=== PATIENT | female | born 1960 | race Caucasian/White ===

== ENCOUNTER 2019-10-30 17:06 | Inpatient (IN) | payer MEDICARE, OTHER ==
[~2019-10-30] VITALS: Ht 172.7 cm; Wt 104.3 kg
--- NOTE | 2019-10-30 00:30 | NUR ---
Patient admitted to room 422 per cart from ER. Admitting diagnosis: atypical chest pain. Patient signed out of [facility] AMA. Patient then called EMS to bring her to the hospital. Patient told EMS that she can not walk and wanted to be taken to hospital for pain in her left ankle. Story then changes to chest pain. Cardiac work-up in ER negative. Possibly GI in nature. Patient has trust issues with everyone. Patient told me that her is in [place] helping to build a hospital and that he has been there for a year. Medical chart states that she is a . Patient stated that she will not take insulin for her diabetes. Patient refuses all vaccinations. Patient is alert and oriented X4. Patient denies any allergies. Patient is homless prior to staying at the [facility]. Will continue to monitor. In no acute distress.
[~2019-10-30 17:06] MED LIST: ASPI-630 PO; ATOR20TA58 PO; CALC-167 PO; CLIN300C8 PO; DIAZEPAM10 MG PO; DIVA500T2 PO; FLUC100T7 PO; FLUT9.9S NS; GABA300C18 PO; HYDR-2759 PO; ISOS30TA4 PO; LOPE-101 PO; MELA3TAB4 PO; MORP-16 PO; MULT1TAB52 PO; PANT20TA2 PO; SUCR1TAB35 PO
[2019-10-30 18:28] LABS: BASO % 0 % (0-3); EOS # 0.1 x10^3/uL (0.0-0.7); EOS % 1 % (0-3); HEMATOCRIT 39.7 % (36.0-47.0); HEMOGLOBIN 13.3 g/dL (12.0-15.5); LYMPH # 1.2 x10^3/uL (1.0-4.8); LYMPH % 23 % (24-48); MEAN CORPUSCULAR HEMOGLOBIN 29 pg (25-35); MEAN CORPUSCULAR HGB CONC 34 g/dL (31-37); MEAN CORPUSCULAR VOLUME 87 fL (79-100); MONO # 0.3 x10^3/uL (0.0-1.1); MONO % 6 % (0-9); NEUT # 3.7 x10^3/uL (1.8-7.7); NEUT % 69 % (31-73); PLATELET COUNT 219 x10^3/uL (140-400); RED BLOOD COUNT 4.58 x10^6/uL (3.50-5.40); RED CELL DISTRIBUTION WIDTH 12.9 % (11.5-14.5); WHITE BLOOD COUNT 5.3 x10^3/uL (4.0-11.0)
--- NOTE | 2019-10-30 18:30 | PHYS DOC ---
Past Medical History Past Medical History: CAD, Diabetes-Type II, Hypertension, GA Additional Past Medical Histor: acute illness Past Surgical History: Cholecystectomy, Knee Replacement, Tonsillectomy, Other Additional Past Surgical Histo: Cardiac Stent, Left TKA Smoking Status: Never Smoker Alcohol Use: None Adult General Chief Complaint Chief Complaint: CHEST PAIN HPI HPI Patient is a 59 year old female who presents with not feeling good for last week. Patient also reports headache, shortness of breath, loss of appetite, and body aches . Patient states she Has not been able to eat stuff and has been staying at [facility]. The patient states she does not like it there and signed out AMA to come to the hospital to get a place where else. Patient also states she was diagnosed with strep however she's not being treated for it. Complete ROS were reviewed and found to be within normal limits, except as documented in the [facility] Allergies Allergies Allergies Coded Allergies Type Severity Reaction Last Updated Verified No Known Drug Allergies 09/26/19 No Physical Exam Physical Exam Constitutional: Well developed, well nourished, no acute distress, non-toxic appearance. [] HENT: Normocephalic, atraumatic, bilateral external ears normal, oropharynx moist, no oral exudates, nose normal. [] Eyes: PERRLA, EOMI, conjunctiva normal, no discharge. [] Neck: Normal range of motion, no tenderness, supple, no stridor. [] Cardiovascular:Heart rate regular rhythm, no murmur [] Lungs & Thorax: Bilateral breath sounds clear to auscultation [] Abdomen: Bowel sounds normal, soft, no tenderness, no masses, no pulsatile masses. [] Neurologic: Alert and oriented X 3, normal motor function, normal sensory function, no focal deficits noted. [] Psychologic: Affect normal, judgement normal, mood normal. [] Current Patient Data Vital Signs Vital Signs Date Time Temp Pulse Resp B/P (MAP) Pulse Ox O2 Delivery O2 Flow Rate FiO2 10/30/19 17:11 98.5 95 20 140/78 (98) 98 Room Air 98.5 Lab Values Laboratory Tests Test 10/30/19 17:20 10/30/19 18:58 White Blood Count 5.3 x10^3/uL (4.0-11.0) Red Blood Count 4.58 x10^6/uL (3.50-5.40) Hemoglobin 13.3 g/dL (12.0-15.5) Hematocrit 39.7 % (36.0-47.0) Mean Corpuscular Volume 87 fL (79-100) Mean Corpuscular Hemoglobin 29 pg (25-35) Mean Corpuscular Hemoglobin Concent 34 g/dL (31-37) Red Cell Distribution Width 12.9 % (11.5-14.5) Platelet Count 219 x10^3/uL (140-400) Neutrophils (%) (Auto) 69 % (31-73) Lymphocytes (%) (Auto) 23 % (24-48) L Monocytes (%) (Auto) 6 % (0-9) Eosinophils (%) (Auto) 1 % (0-3) Basophils (%) (Auto) 0 % (0-3) Neutrophils # (Auto) 3.7 x10^3/uL (1.8-7.7) Lymphocytes # (Auto) 1.2 x10^3/uL (1.0-4.8) Monocytes # (Auto) 0.3 x10^3/uL (0.0-1.1) Eosinophils # (Auto) 0.1 x10^3/uL (0.0-0.7) Basophils # (Auto) 0.0 x10^3/uL (0.0-0.2) Sodium Level 142 mmol/L (136-145) Potassium Level 4.1 mmol/L (3.5-5.1) Chloride Level 103 mmol/L (98-107) Carbon Dioxide Level 26 mmol/L (21-32) Anion Gap 13 (6-14) Blood Urea Nitrogen 11 mg/dL (7-20) Creatinine 1.0 mg/dL (0.6-1.0) Estimated GFR (Cockcroft-Gault) 56.7 BUN/Creatinine Ratio 11 (6-20) Glucose Level 278 mg/dL (70-99) H Calcium Level 8.8 mg/dL (8.5-10.1) Total Bilirubin 0.4 mg/dL (0.2-1.0) Aspartate Amino Transferase (AST) 34 U/L (15-37) Alanine Aminotransferase (ALT) 83 U/L (14-59) H Alkaline Phosphatase 538 U/L (46-116) H Troponin I Quantitative < 0.017 ng/mL (0.000-0.055) Total Protein 6.3 g/dL (6.4-8.2) L Albumin 3.0 g/dL (3.4-5.0) L Albumin/Globulin Ratio 0.9 (1.0-1.7) L Influenza Type A Antigen Negative (NEGATIVE) Influenza Type B Antigen Negative (NEGATIVE) Laboratory Tests 10/30/19 17:20 Laboratory Tests 10/30/19 17:20 EKG EKG [] Radiology/Procedures Radiology/Procedures [][facility] [address] [place] [address] IMAGING REPORT Signed PATIENT: TERESA COLE ACCOUNT: [id number] : 1960 LOCATION: ER AGE: 59 SEX: F EXAM STATUS: REG ER ORD. PHYSICIAN: SANDRA LAUREANO APRN REASON: shortness of breath, cp PROCEDURE: CHEST PA & LATERAL Exam: Chest 2 views INDICATION: Shortness of breath TECHNIQUE: Frontal and lateral views the chest Comparisons: 09/26/2019 FINDINGS: The cardiomediastinal silhouette is normal. Pulmonary vessels are mildly prominent. Lung and pleural spaces are clear. IMPRESSION: Findings likely related to mild pulmonary edema. Electronically signed by: Deisy Magdaleno MD (10/30/2019 7:15 PM) [id number] DICTATED and SIGNED BY: DEISY MAGDALENO MD DATE: 10/30/19 1915 Course & Med Decision Making Course & Med Decision Making Pertinent Labs and Imaging studies reviewed. (See chart for details) Will get Flu, Strep, labs, and chest x-ray. Labs are unremarkable for acute changes. Liver enzymes are chronically elevated. Ejection fraction from cardiac workup last month was 60%. . Influenza are negative. Strep is negative. Workup is unremarkable. I am unable to discharge the patient as she is unable to take care of herself and she signed out AMA from [facility] and has no place to go. I will admit the patient to Dr. Mccormack for prison placement as she is unable to take care of herself and Chest pain. Dragon Disclaimer Dragon Disclaimer This electronic medical record was generated, in whole or in part, using a voice recognition dictation system. Departure Departure Impression: Primary Impression: Atypical chest pain Disposition: 09 ADMITTED INPATIENT Admitting Physician: GERA Condition: STABLE Referrals: NO PCP (PCP) The HEART Score for CP Pts HEART Score for Chest Pain: HEART Score for Chest Pain Response (Comments) Value History Slighlty/Non-Suspicious 0 ECG Normal 0 Age >45 - < 65 1 Risk Factors >3 Risk Factors or Hx CAD 2 Troponin < Normal Limit 0 Total 3 Risk Factors: Risk Factors: DM, Current or recent (<one month) smoker, HTN, HLP, family history of CAD, obesity. Risk Scores: Score 0 - 3: 2.5% MACE over next 6 weeks - Discharge Home Score 4 - 6: 20.3% MACE over next 6 weeks - Admit for Clinical Observation Score 7 - 10: 72.7% MACE over next 6 weeks - Early Invasive Strategies SANDRA LAUREANO APRN Oct 30, 2019 18:30
[2019-10-30 18:42] LABS: CALCIUM 8.8 mg/dL (8.5-10.1); GFR 56.7; POTASSIUM 4.1 mmol/L (3.5-5.1)
[2019-10-30 18:49] LABS: ALBUMIN/GLOBULIN RATIO 0.9 (1.0-1.7); TOTAL BILIRUBIN 0.4 mg/dL (0.2-1.0); TOTAL PROTEIN 6.3 g/dL (6.4-8.2)
--- NOTE | 2019-10-30 19:18 | RAD ---
Exam: Chest 2 views INDICATION: Shortness of breath TECHNIQUE: Frontal and lateral views the chest Comparisons: 09/26/2019 FINDINGS: The cardiomediastinal silhouette is normal. Pulmonary vessels are mildly prominent. Lung and pleural spaces are clear. IMPRESSION: Findings likely related to mild pulmonary edema. Electronically signed by: eDisy Egan MD (10/30/2019 7:15 PM) [id number]
[2019-10-30 19:34] LABS: INFLUENZA A PATIENT NEGATIVE (NEGATIVE); INFLUENZA B PATIENT NEGATIVE (NEGATIVE)
[2019-10-30] MEDS ORDERED: ONDANSETRON PF 4 MG/2 ML VIAL. IV PRN (21:00)
[2019-10-30 22:08] LABS: BILIRUBIN,URINE SMALL (NEG); CLARITY,URINE CLOUDY; COLOR,URINE YELLOW; NITRITE,URINE NEGATIVE (NEG); PH,URINE 5.5; PROTEIN,URINE NEGATIVE (NEG-TRACE); UROBILINOGEN,URINE 0.2 mg/dL (0.2 mg/dL)
[2019-10-30 22:16] LABS: HYALINE CASTS, URINE MODERATE /HPF; SQUAMOUS EPITHELIAL CELL,UR MOD /LPF
[2019-10-30 22:17] LABS: BACTERIA,URINE 0 /HPF (0-FEW); RBC,URINE 0 /HPF (0-2); YEAST,URINE PRESENT /HPF
[2019-10-30 23:00] VITALS: BP 126/62
[2019-10-30] MEDS ORDERED: ACETAMINOPHEN 325 MG TABLET. PO PRN (23:45)
[2019-10-30] MEDS ORDERED: LOPERAMIDE 2 MG CAPSULE PO PRN (23:45)
--- NOTE | 2019-10-30 23:45 | PDOC1 ---
History and Physical Date of Admission Date of Admission DATE: 10/30/19 TIME: 23:42 Identification/Chief Complaint Chief Complaint Chest pain Source Source: Caregiver, Chart review, Patient History of Present Illness History of Present Illness Ms Del Rosario is a 59yo F w/ PMHx CAD s/p stent, HTN, HLD, DM2, GERD, left ankle fracture who presented from nursing facility secondary to chest/ epigastric pain. Patient reports pain has been present for the last 2 days and states she has not been allowed to eat for 3 days. Pain is located in her central epigastric region. Pain seems to radiate up the the left chest. No dizziness, diaphoresis, shortness of breath, or nausea/vomiting. Has been requesting GI cocktail, which she reports improves pain. She reported was living in her car for the past 2 years and slipped and fell getting out of her car, fracturing her left ankle, states she went under the car, was in [facility] for the past 18 weeks, apparently. Chest x-ray with mild pulmonary edema. Labs are unremarkable for acute changes. Liver enzymes are chronically elevated with Alkaline phosphatase much higher. Ejection fraction from cardiac workup last month was 60%. . Influenza are negative. Strep is negative. After d/w ED and [facility], apparently she signed out AMA from [facility] and had called 911 and EMS transported her here as she was unable to walk out of the facility. On further ROS her story is inconsistent in many parts and does change. Difficult to follow. She displays some splitting with her remarks about previous physicians. She adamantly denies any mental health diagnoses. Past Medical History Cardiovascular: CAD, HTN Psych: Anxiety, Bipolar, Schizophrenia Endocrine: Diabetes Past Surgical History Past Surgical History tonsillectomy, left total knee arthroplasty and right wrist fracture, status post open reduction and internal fixation. Past Surgical History: Total knee replacement (Left), Tonsillectomy Family History Family History: Hypertension Social History Smoke: No ALCOHOL: none Drugs: None Current Problem List Problem List Problems Medical Problems: (1) Failure to thrive Status: Acute Current Medications Current Medications Current Medications Ondansetron HCl (Zofran) 4 mg PRN Q8HRS PRN IV NAUSEA/VOMITING; Start 10/30/19 at 21:00; Stop 10/31/19 at 20:59 Active Scripts Active Diflucan (Fluconazole) 100 Mg Tablet 1 Tab PO DAILY 7 Days Carafate (Sucralfate) 1 Gm Tablet 1 Tab PO QID 30 Days Protonix (Pantoprazole Sodium) 20 Mg Tablet.dr 2 Tab PO DAILY 30 Days Reported Hydrocodone-Acetamin 5-325 mg (Hydrocodone/Acetaminophen) 1 Each Tablet 2 Tab PO Q4HRS Multivitamins (Multivitamin) 1 Each Tablet 1 Tab PO DAILY Morphine Sulfate Er (Morphine Sulfate) 30 Mg Tablet.er 1 Tab PO BID Melatonin 3 Mg Tablet 3 Tab PO QHS Isosorbide Mononitrate Er (Isosorbide Mononitrate) 30 Mg Tab.er.24h 1 Tab PO DAILY Imodium A-D (Loperamide HCl) 2 Mg Capsule 2 Mg PO Q6HRS PRN Gabapentin (Gabapentin) 300 Mg Capsule 300 Mg PO HS Flonase Allergy Relief (Fluticasone Propionate) 9.9 Ml [place].susp 2 Sprays NS DAILY Diazepam 10 Mg Tablet 10 Mg PO Q6HRS PRN Depakote (Divalproex Sodium) 500 Mg Tablet.dr 500 Mg PO DAILY Clindamycin Hcl 300 Mg Capsule 300 Mg PO QID Calcium 600 + Vit D Tablet (Calcium Carbonate/Vitamin D3) 1 Each Tablet 1 Each PO BID Atorvastatin Calcium 20 Mg Tablet 20 Mg PO HS Aspirin 81 Mg Tab.chew 1 Tab PO DAILY Allergies Allergies: Coded Allergies: No Known Drug Allergies (Unverified , 09/26/19) ROS General: YES: Fatigue, Malaise, Appetite; No: Chills, Night Sweats, Other PSYCHOLOGICAL ROS: YES: Behavioral Disorder, Depression, Irritablity, Mood Swings, Obsessive thoughts; No: Anxiety, Concentration difficultie, Decreased libido, Disorientation, Hallucinations, Hostility, Memory difficulties, Physical abuse, Sexual abuse, Sleep disturbances, Suicidal ideation, Other Eyes: No Blurry vision, No Decreased vision, No Double vision, No Dry eyes, No Excessive tearing, No Eye Pain, No Itchy Eyes, No Loss of vision, No Photophobia, No Scotomata, No Uses contacts, No Uses glasses, No Other HEENT: No: Heacaches, Visual Changes, Hearing change, Nasal congestion, Nasal discharge, Oral lesions, Sinus pain, Sore Throat, Epistaxis, Sneezing, Snoring, Tinnitus, Vertigo, Vocal changes, Other ALLERGY AND IMMUNOLOGY: No: Hives, Insect Bite Sensitivity, Itchy/Watery Eyes, Nasal Congestion, Post Nasal Drip, Seasonal Allergies, Other Hematological and Lymphatic: No: Bleeding Problems, Blood Clots, Blood Transfusions, Brusing, Night Sweats, Pallor, Swollen Lymph Nodes, Other ENDOCRINE: No: Breast Changes, Galactorrhea, Hair Pattern Changes, Hot Flashes, Malaise/lethargy, Mood Swings, Palpitations, Polydipsia/polyuria, Skin Changes, Temperature Intolerance, Unexpected Weight Changes, Other Breast: No New/Changing Breast Lumps, No Nipple changes, No Nipple discharge, No Other Respiratory: No: Cough, Hemoptysis, Orthopnea, Pleuritic Pain, Shortness of breath, SOB with excertion, Sputum Changes, Stridor, Tachypnea, Wheezing, Other Cardiovascular: yes Chest Pain; No Palpitations, No Orthopnea, No Paroxysmal Noc. Dyspnea, No Edema, No Lt Headedness, No Other Gastrointestinal: Yes Nausea; No Vomiting, No Abdominal Pain, No Diarrhea, No Constipation, No Melena, No Hematochezia, No Other Genitourinary: No Dysuria, No Frequency, No Incontinence, No Hematuria, No Retention, No Discharge, No Urgency, No Pain, No Flank Pain, No Other, No , No , No , No , No , No , No Musculoskeletal: Yes Joint Pain; No Gait Disturbance, No Joint Stiffness, No Joint Swelling, No Muscle Pain, No Muscular Weakness, No Pain In:, No Swelling In:, No Other Neurological: Yes Gait Disturbance; No Behavorial Changes, No Bowel/Bladder ControlChng, No Confusion, No Dizziness, No Headaches, No Impaired Coord/balance, No Memory Loss, No Numbness/Tingling, No Seizures, No Speech Problems, No Tremors, No Visual Changes, No Weakness, No Other Skin: No Dry Skin, No Eczema, No Hair Changes, No Lumps, No Mole Changes, No Mottling, No Nail Changes, No Pruritus, No Rash, No Skin Lesion Changes, No Other, No Acne Physical Exam General: Alert, Cooperative, No acute distress HEENT: Atraumatic, PERRLA, EOMI, Mucous membr. moist/pink Lungs: Clear to auscultation, Normal air movement Heart: S1S2, RRR, no thrills, no rubs, no gallops, no murmurs Abdomen: Normal bowel sounds, Soft, No tenderness, No hepatosplenomegaly, No masses Rectal Exam: not examined Extremities: No clubbing, No cyanosis, No edema, Normal pulses Skin: Other (Right heel abrasion with "" wound cover) Neuro: Strength at 5/5 X4 ext, Normal tone, Sensation intact, Cranial nerves 3- 12 NL, Reflexes 2+ Psych/Mental Status: Other (Circumferetial, tangential, thoughts of perseverat ion) Vitals Vitals Vital Signs Date Time Temp Pulse Resp B/P (MAP) Pulse Ox O2 Delivery O2 Flow Rate FiO2 10/30/19 17:11 98.5 95 20 140/78 (98) 98 Room Air 98.5 Labs Labs Laboratory Tests Test 10/30/19 17:20 10/30/19 18:58 10/30/19 22:00 White Blood Count 5.3 x10^3/uL (4.0-11.0) Red Blood Count 4.58 x10^6/uL (3.50-5.40) Hemoglobin 13.3 g/dL (12.0-15.5) Hematocrit 39.7 % (36.0-47.0) Mean Corpuscular Volume 87 fL (79-100) Mean Corpuscular Hemoglobin 29 pg (25-35) Mean Corpuscular Hemoglobin Concent 34 g/dL (31-37) Red Cell Distribution Width 12.9 % (11.5-14.5) Platelet Count 219 x10^3/uL (140-400) Neutrophils (%) (Auto) 69 % (31-73) Lymphocytes (%) (Auto) 23 % (24-48) Monocytes (%) (Auto) 6 % (0-9) Eosinophils (%) (Auto) 1 % (0-3) Basophils (%) (Auto) 0 % (0-3) Neutrophils # (Auto) 3.7 x10^3/uL (1.8-7.7) Lymphocytes # (Auto) 1.2 x10^3/uL (1.0-4.8) Monocytes # (Auto) 0.3 x10^3/uL (0.0-1.1) Eosinophils # (Auto) 0.1 x10^3/uL (0.0-0.7) Basophils # (Auto) 0.0 x10^3/uL (0.0-0.2) Sodium Level 142 mmol/L (136-145) Potassium Level 4.1 mmol/L (3.5-5.1) Chloride Level 103 mmol/L (98-107) Carbon Dioxide Level 26 mmol/L (21-32) Anion Gap 13 (6-14) Blood Urea Nitrogen 11 mg/dL (7-20) Creatinine 1.0 mg/dL (0.6-1.0) Estimated GFR (Cockcroft-Gault) 56.7 BUN/Creatinine Ratio 11 (6-20) Glucose Level 278 mg/dL (70-99) Calcium Level 8.8 mg/dL (8.5-10.1) Total Bilirubin 0.4 mg/dL (0.2-1.0) Aspartate Amino Transf (AST/SGOT) 34 U/L (15-37) Alanine Aminotransferase (ALT/SGPT) 83 U/L (14-59) Alkaline Phosphatase 538 U/L (46-116) Troponin I Quantitative < 0.017 ng/mL (0.000-0.055) Total Protein 6.3 g/dL (6.4-8.2) Albumin 3.0 g/dL (3.4-5.0) Albumin/Globulin Ratio 0.9 (1.0-1.7) Influenza Type A Antigen Negative (NEGATIVE) Influenza Type B Antigen Negative (NEGATIVE) Urine Collection Type Unknown Urine Color Yellow Urine Clarity Cloudy Urine pH 5.5 Urine Specific Fisher >=1.030 Urine Protein Negative mg/dL (NEG-TRACE) Urine Glucose (UA) >=1000 mg/dL (NEG) Urine Ketones (Stick) 15 mg/dL (NEG) Urine Blood Negative (NEG) Urine Nitrite Negative (NEG) Urine Bilirubin Small (NEG) Urine Urobilinogen Dipstick 0.2 mg/dL (0.2 mg/dL) Urine Leukocyte Esterase Negative (NEG) Urine RBC 0 /HPF (0-2) Urine WBC 5-10 /HPF (0-4) Urine Squamous Epithelial Cells Mod /LPF Urine Transitional Epithelial Cells Few /LPF Urine Bacteria 0 /HPF (0-FEW) Urine Hyaline Casts Moderate /HPF Urine Mucus Marked /LPF Urine Yeast Present /HPF Laboratory Tests Test 10/30/19 17:20 10/30/19 18:58 3/2/20 22:00 White Blood Count 5.3 x10^3/uL (4.0-11.0) Red Blood Count 4.58 x10^6/uL (3.50-5.40) Hemoglobin 13.3 g/dL (12.0-15.5) Hematocrit 39.7 % (36.0-47.0) Mean Corpuscular Volume 87 fL (79-100) Mean Corpuscular Hemoglobin 29 pg (25-35) Mean Corpuscular Hemoglobin Concent 34 g/dL (31-37) Red Cell Distribution Width 12.9 % (11.5-14.5) Platelet Count 219 x10^3/uL (140-400) Neutrophils (%) (Auto) 69 % (31-73) Lymphocytes (%) (Auto) 23 % (24-48) Monocytes (%) (Auto) 6 % (0-9) Eosinophils (%) (Auto) 1 % (0-3) Basophils (%) (Auto) 0 % (0-3) Neutrophils # (Auto) 3.7 x10^3/uL (1.8-7.7) Lymphocytes # (Auto) 1.2 x10^3/uL (1.0-4.8) Monocytes # (Auto) 0.3 x10^3/uL (0.0-1.1) Eosinophils # (Auto) 0.1 x10^3/uL (0.0-0.7) Basophils # (Auto) 0.0 x10^3/uL (0.0-0.2) Sodium Level 142 mmol/L (136-145) Potassium Level 4.1 mmol/L (3.5-5.1) Chloride Level 103 mmol/L (98-107) Carbon Dioxide Level 26 mmol/L (21-32) Anion Gap 13 (6-14) Blood Urea Nitrogen 11 mg/dL (7-20) Creatinine 1.0 mg/dL (0.6-1.0) Estimated GFR (Cockcroft-Gault) 56.7 BUN/Creatinine Ratio 11 (6-20) Glucose Level 278 mg/dL (70-99) Calcium Level 8.8 mg/dL (8.5-10.1) Total Bilirubin 0.4 mg/dL (0.2-1.0) Aspartate Amino Transf (AST/SGOT) 34 U/L (15-37) Alanine Aminotransferase (ALT/SGPT) 83 U/L (14-59) Alkaline Phosphatase 538 U/L (46-116) Troponin I Quantitative < 0.017 ng/mL (0.000-0.055) Total Protein 6.3 g/dL (6.4-8.2) Albumin 3.0 g/dL (3.4-5.0) Albumin/Globulin Ratio 0.9 (1.0-1.7) Influenza Type A Antigen Negative (NEGATIVE) Influenza Type B Antigen Negative (NEGATIVE) Urine Collection Type Unknown Urine Color Yellow Urine Clarity Cloudy Urine pH 5.5 Urine Specific Fisher >=1.030 Urine Protein Negative mg/dL (NEG-TRACE) Urine Glucose (UA) >=1000 mg/dL (NEG) Urine Ketones (Stick) 15 mg/dL (NEG) Urine Blood Negative (NEG) Urine Nitrite Negative (NEG) Urine Bilirubin Small (NEG) Urine Urobilinogen Dipstick 0.2 mg/dL (0.2 mg/dL) Urine Leukocyte Esterase Negative (NEG) Urine RBC 0 /HPF (0-2) Urine WBC 5-10 /HPF (0-4) Urine Squamous Epithelial Cells Mod /LPF Urine Transitional Epithelial Cells Few /LPF Urine Bacteria 0 /HPF (0-FEW) Urine Hyaline Casts Moderate /HPF Urine Mucus Marked /LPF Urine Yeast Present /HPF Images Images CXR - The cardiomediastinal silhouette is normal. Pulmonary vessels are mildly prominent. Lung and pleural spaces are clear. IMPRESSION: Findings likely related to mild pulmonary edema. VTE Prophylaxis Ordered VTE Prophylaxis Devices: No VTE Pharmacological Prophylaxi: Yes Assessment/Plan Assessment/Plan A/P: Chest pain - negative cardiac enzymes, EKG. Will trend troponins. This seems like it may be GI in etiology Coronary artery disease, status post NE with stent deployment previously. Cont meds Type 2 diabetes - will place on sliding scale, A1c Hypertension - cont meds Hyperlipidemia - cont meds Gastroesophageal reflux disease - cont meds Generalized weakness - will have PT to evaluated Right heel wound - seems to be a bedsore. Difficulty walking - right heel ulcer and left ankle in brace Left bimalleolar fracture - patient notes she was seen recently by orthopedic surgeon. She is still nonweightbearing and mostly bed bound, wheelchair bound. Morbid obesity - counseled on diet, exercise. Insight seems very poor Elevated alkaline phosphatase - will d/w GI, was just evaluated 5 weeks ago. Behavioral disorder - her self care is poor, thoughts seem disorganized. A psychotic disorder with concomitant borderline personality seem to be present. Is on depakote likely for treatment of this. FEN - ADA diet PPX - lovenox FULL CODE Dispo - inpatient 2 midnights. Needs placement for poor self care. Her AMA decision to leave [facility] is unusual as EMS picked her up from the facility. It would be appropriate for her to return to [employer] residency, may need to look at other facilities. ULISES GOODMAN MD Oct 30, 2019 23:45
[2019-10-31] MEDS ORDERED: DEXTROSE 50% 25 GM / 50ML DISP.SYRIN. IV PRN
[2019-10-31] MEDS: MORPHINE ER 30 MG TABLET.ER PO SCH ×3 (02:04→20:29)
[2019-10-31] MEDS: ENOXAPARIN 40 MG/0.4 ML SYRINGE. SQ SCH (02:09)
[2019-10-31 03:00] VITALS: BP 146/60
[2019-10-31 03:48] LABS: CALCIUM 8.3 mg/dL (8.5-10.1); CREATININE 0.9 mg/dL (0.6-1.0); GFR 64.1; POTASSIUM 3.5 mmol/L (3.5-5.1)
--- NOTE | 2019-10-31 05:23 | EKG ---
[facility] [address] [place] [address] Test Date: 2019-10-30 Test Time: 17:11:10 Pat Name: TERESA COLE Department: Room: Gender: F Engineering Technical Writer: : 1960 Requested By: SANDRA LAUREANO Order Number: [id number] Reading MD: Measurements Intervals Lilly Rate: 86 P: 0 NV: 170 QRS: -17 QRSD: 106 T: 53 QT: 362 QTc: 436 Interpretive Statements SINUS RHYTHM LEFTWARD AXIS R-S TRANSITION ZONE IN V LEADS DISPLACED TO THE LEFT OTHERWISE NORMAL ECG RI6.01 No previous ECG available for comparison
--- NOTE | 2019-10-31 06:18 | NUR ---
Patient refused MRSA CHG bath and Nozin swab
[2019-10-31 07:00] VITALS: BP 115/56
[2019-10-31] MEDS: PANTOPRAZOLE 40 MG TABLET.DR. PO SCH (07:30)
[2019-10-31] MEDS: INSULIN LISPRO 300 UNITS/3 ML VIAL. SQ SCH ×4 (07:30→21:00)
[2019-10-31] MEDS: SUCRALFATE 1 GM TABLET. PO SCH ×4 (07:30→20:29)
--- NOTE | 2019-10-31 08:48 | PDOC ---
PROGRESS NOTES Chief Complaint Chief Complaint A/P: Chest pain - negative cardiac enzymes, EKG. This seems like it may be GI in etiology Coronary artery disease, status post MS with stent deployment previously. Cont meds Type 2 diabetes - will place on sliding scale, A1c Hypertension - cont meds Hyperlipidemia - cont meds Gastroesophageal reflux disease - cont meds Generalized weakness - will have PT to evaluated Right heel wound - seems to be a bedsore. Difficulty walking - right heel ulcer and left ankle in brace Left bimalleolar fracture - patient notes she was seen recently by orthopedic surgeon. She is still nonweightbearing and mostly bed bound, wheelchair bound. Morbid obesity - counseled on diet, exercise. Insight seems very poor Elevated alkaline phosphatase - will d/w GI, was just evaluated 5 weeks ago. Behavioral disorder - her self care is poor, thoughts seem disorganized. A psychotic disorder with concomitant borderline personality seem to be present. Is on depakote likely for treatment of this. History of Present Illness History of Present Illness Ms Del Rosario is a 59yo F w/ PMHx CAD s/p stent, HTN, HLD, DM2, GERD, left ankle fracture who presented from nursing facility secondary to chest/ epigastric pain. Patient reports pain has been present for the last 2 days and states she has not been allowed to eat for 3 days. Pain is located in her central epigastric region. Pain seems to radiate up the the left chest. No dizziness, d iaphoresis, shortness of breath, or nausea/vomiting. Has been requesting GI cocktail, which she reports improves pain. She reported was living in her car for the past 2 years and slipped and fell getting out of her car, fracturing her left ankle, states she went under the car, was in [facility] for the past 18 weeks, apparently. Chest x-ray with mild pulmonary edema. Labs are unremarkable for acute changes. Liver enzymes are chronically elevated with Alkaline phosphatase much higher. Ejection fraction from cardiac workup last month was 60%. . Influenza are negative. Strep is negative. After d/w ED and [facility], apparently she signed out AMA from [facility] and had called 911 and EMS transported her here as she was unable to walk out of the facility. On further ROS her story is inconsistent in many parts and does change. Difficult to follow. She displays some splitting with her remarks about previous physicians. She adamantly denies any mental health diagnoses. She is refusing multiple therapies today. No SOB, chest pain improved. Refusing to have her LLE x-rayed. Vitals Vitals Vital Signs Date Time Temp Pulse Resp B/P (MAP) Pulse Ox O2 Delivery O2 Flow Rate FiO2 10/31/19 08:17 93 Room Air 10/31/19 07:00 98.2 52 18 115/56 (75) 98.2 Physical Exam General: Alert, Cooperative, No acute distress Abdomen: Normal bowel sounds, Soft, No tenderness, No hepatosplenomegaly, No masses Extremities: No clubbing, No cyanosis, No edema, Normal pulses Skin: Other (Right heel abrasion with "" wound cover) Labs LABS Laboratory Tests Test 10/30/19 17:20 10/30/19 18:58 10/30/19 22:00 10/30/19 23:51 White Blood Count 5.3 x10^3/uL (4.0-11.0) Red Blood Count 4.58 x10^6/uL (3.50-5.40) Hemoglobin 13.3 g/dL (12.0-15.5) Hematocrit 39.7 % (36.0-47.0) Mean Corpuscular Volume 87 fL (79-100) Mean Corpuscular Hemoglobin 29 pg (25-35) Mean Corpuscular Hemoglobin Concent 34 g/dL (31-37) Red Cell Distribution Width 12.9 % (11.5-14.5) Platelet Count 219 x10^3/uL (140-400) Neutrophils (%) (Auto) 69 % (31-73) Lymphocytes (%) (Auto) 23 % (24-48) Monocytes (%) (Auto) 6 % (0-9) Eosinophils (%) (Auto) 1 % (0-3) Basophils (%) (Auto) 0 % (0-3) Neutrophils # (Auto) 3.7 x10^3/uL (1.8-7.7) Lymphocytes # (Auto) 1.2 x10^3/uL (1.0-4.8) Monocytes # (Auto) 0.3 x10^3/uL (0.0-1.1) Eosinophils # (Auto) 0.1 x10^3/uL (0.0-0.7) Basophils # (Auto) 0.0 x10^3/uL (0.0-0.2) Sodium Level 142 mmol/L (136-145) Potassium Level 4.1 mmol/L (3.5-5.1) Chloride Level 103 mmol/L (98-107) Carbon Dioxide Level 26 mmol/L (21-32) Anion Gap 13 (6-14) Blood Urea Nitrogen 11 mg/dL (7-20) Creatinine 1.0 mg/dL (0.6-1.0) Estimated GFR (Cockcroft-Gault) 56.7 BUN/Creatinine Ratio 11 (6-20) Glucose Level 278 mg/dL (70-99) Calcium Level 8.8 mg/dL (8.5-10.1) Total Bilirubin 0.4 mg/dL (0.2-1.0) Aspartate Amino Transf (AST/SGOT) 34 U/L (15-37) Alanine Aminotransferase (ALT/SGPT) 83 U/L (14-59) Alkaline Phosphatase 538 U/L (46-116) Troponin I Quantitative < 0.017 ng/mL (0.000-0.055) < 0.017 ng/mL (0.000-0.055) Total Protein 6.3 g/dL (6.4-8.2) Albumin 3.0 g/dL (3.4-5.0) Albumin/Globulin Ratio 0.9 (1.0-1.7) Influenza Type A Antigen Negative (NEGATIVE) Influenza Type B Antigen Negative (NEGATIVE) Group A Streptococcus Rapid Negative (NEGATIVE) Urine Collection Type Unknown Urine Color Yellow Urine Clarity Cloudy Urine pH 5.5 Urine Specific [place]lan >=1.030 Urine Protein Negative mg/dL (NEG-TRACE) Urine Glucose (UA) >=1000 mg/dL (NEG) Urine Ketones (Stick) 15 mg/dL (NEG) Urine Blood Negative (NEG) Urine Nitrite Negative (NEG) Urine Bilirubin Small (NEG) Urine Urobilinogen Dipstick 0.2 mg/dL (0.2 mg/dL) Urine Leukocyte Esterase Negative (NEG) Urine RBC 0 /HPF (0-2) Urine WBC 5-10 /HPF (0-4) Urine Squamous Epithelial Cells Mod /LPF Urine Transitional Epithelial Cells Few /LPF Urine Bacteria 0 /HPF (0-FEW) Urine Hyaline Casts Moderate /HPF Urine Mucus Marked /LPF Urine Yeast Present /HPF Test 10/31/19 03:20 Sodium Level 141 mmol/L (136-145) Potassium Level 3.5 mmol/L (3.5-5.1) Chloride Level 106 mmol/L (98-107) Carbon Dioxide Level 25 mmol/L (21-32) Anion Gap 10 (6-14) Blood Urea Nitrogen 12 mg/dL (7-20) Creatinine 0.9 mg/dL (0.6-1.0) Estimated GFR (Cockcroft-Gault) 64.1 Glucose Level 353 mg/dL (70-99) Calcium Level 8.3 mg/dL (8.5-10.1) Troponin I Quantitative < 0.017 ng/mL (0.000-0.055) Thyroid Stimulating Hormone (TSH) 0.258 uIU/mL (0.358-3.74) Assessment and Plan Assessmemt and Plan Problems Medical Problems: (1) Failure to thrive Status: Acute Comment Review of Relevant I have reviewed the following items octavio (where applicable) has been applied. Labs Laboratory Tests Test 10/30/19 17:20 10/30/19 18:58 10/30/19 22:00 10/30/19 23:51 White Blood Count 5.3 x10^3/uL (4.0-11.0) Red Blood Count 4.58 x10^6/uL (3.50-5.40) Hemoglobin 13.3 g/dL (12.0-15.5) Hematocrit 39.7 % (36.0-47.0) Mean Corpuscular Volume 87 fL (79-100) Mean Corpuscular Hemoglobin 29 pg (25-35) Mean Corpuscular Hemoglobin Concent 34 g/dL (31-37) Red Cell Distribution Width 12.9 % (11.5-14.5) Platelet Count 219 x10^3/uL (140-400) Neutrophils (%) (Auto) 69 % (31-73) Lymphocytes (%) (Auto) 23 % (24-48) Monocytes (%) (Auto) 6 % (0-9) Eosinophils (%) (Auto) 1 % (0-3) Basophils (%) (Auto) 0 % (0-3) Neutrophils # (Auto) 3.7 x10^3/uL (1.8-7.7) Lymphocytes # (Auto) 1.2 x10^3/uL (1.0-4.8) Monocytes # (Auto) 0.3 x10^3/uL (0.0-1.1) Eosinophils # (Auto) 0.1 x10^3/uL (0.0-0.7) Basophils # (Auto) 0.0 x10^3/uL (0.0-0.2) Sodium Level 142 mmol/L (136-145) Potassium Level 4.1 mmol/L (3.5-5.1) Chloride Level 103 mmol/L (98-107) Carbon Dioxide Level 26 mmol/L (21-32) Anion Gap 13 (6-14) Blood Urea Nitrogen 11 mg/dL (7-20) Creatinine 1.0 mg/dL (0.6-1.0) Estimated GFR (Cockcroft-Gault) 56.7 BUN/Creatinine Ratio 11 (6-20) Glucose Level 278 mg/dL (70-99) Calcium Level 8.8 mg/dL (8.5-10.1) Total Bilirubin 0.4 mg/dL (0.2-1.0) Aspartate Amino Transf (AST/SGOT) 34 U/L (15-37) Alanine Aminotransferase (ALT/SGPT) 83 U/L (14-59) Alkaline Phosphatase 538 U/L (46-116) Troponin I Quantitative < 0.017 ng/mL (0.000-0.055) < 0.017 ng/mL (0.000-0.055) Total Protein 6.3 g/dL (6.4-8.2) Albumin 3.0 g/dL (3.4-5.0) Albumin/Globulin Ratio 0.9 (1.0-1.7) Influenza Type A Antigen Negative (NEGATIVE) Influenza Type B Antigen Negative (NEGATIVE) Group A Streptococcus Rapid Negative (NEGATIVE) Urine Collection Type Unknown Urine Color Yellow Urine Clarity Cloudy Urine pH 5.5 Urine Specific Etlan >=1.030 Urine Protein Negative mg/dL (NEG-TRACE) Urine Glucose (UA) >=1000 mg/dL (NEG) Urine Ketones (Stick) 15 mg/dL (NEG) Urine Blood Negative (NEG) Urine Nitrite Negative (NEG) Urine Bilirubin Small (NEG) Urine Urobilinogen Dipstick 0.2 mg/dL (0.2 mg/dL) Urine Leukocyte Esterase Negative (NEG) Urine RBC 0 /HPF (0-2) Urine WBC 5-10 /HPF (0-4) Urine Squamous Epithelial Cells Mod /LPF Urine Transitional Epithelial Cells Few /LPF Urine Bacteria 0 /HPF (0-FEW) Urine Hyaline Casts Moderate /HPF Urine Mucus Marked /LPF Urine Yeast Present /HPF Test 10/31/19 03:20 Sodium Level 141 mmol/L (136-145) Potassium Level 3.5 mmol/L (3.5-5.1) Chloride Level 106 mmol/L (98-107) Carbon Dioxide Level 25 mmol/L (21-32) Anion Gap 10 (6-14) Blood Urea Nitrogen 12 mg/dL (7-20) Creatinine 0.9 mg/dL (0.6-1.0) Estimated GFR (Cockcroft-Gault) 64.1 Glucose Level 353 mg/dL (70-99) Calcium Level 8.3 mg/dL (8.5-10.1) Troponin I Quantitative < 0.017 ng/mL (0.000-0.055) Thyroid Stimulating Hormone (TSH) 0.258 uIU/mL (0.358-3.74) Laboratory Tests Test 10/30/19 17:20 10/30/19 18:58 10/30/19 22:00 10/30/19 23:51 White Blood Count 5.3 x10^3/uL (4.0-11.0) Red Blood Count 4.58 x10^6/uL (3.50-5.40) Hemoglobin 13.3 g/dL (12.0-15.5) Hematocrit 39.7 % (36.0-47.0) Mean Corpuscular Volume 87 fL (79-100) Mean Corpuscular Hemoglobin 29 pg (25-35) Mean Corpuscular Hemoglobin Concent 34 g/dL (31-37) Red Cell Distribution Width 12.9 % (11.5-14.5) Platelet Count 219 x10^3/uL (140-400) Neutrophils (%) (Auto) 69 % (31-73) Lymphocytes (%) (Auto) 23 % (24-48) Monocytes (%) (Auto) 6 % (0-9) Eosinophils (%) (Auto) 1 % (0-3) Basophils (%) (Auto) 0 % (0-3) Neutrophils # (Auto) 3.7 x10^3/uL (1.8-7.7) Lymphocytes # (Auto) 1.2 x10^3/uL (1.0-4.8) Monocytes # (Auto) 0.3 x10^3/uL (0.0-1.1) Eosinophils # (Auto) 0.1 x10^3/uL (0.0-0.7) Basophils # (Auto) 0.0 x10^3/uL (0.0-0.2) Sodium Level 142 mmol/L (136-145) Potassium Level 4.1 mmol/L (3.5-5.1) Chloride Level 103 mmol/L (98-107) Carbon Dioxide Level 26 mmol/L (21-32) Anion Gap 13 (6-14) Blood Urea Nitrogen 11 mg/dL (7-20) Creatinine 1.0 mg/dL (0.6-1.0) Estimated GFR (Cockcroft-Gault) 56.7 BUN/Creatinine Ratio 11 (6-20) Glucose Level 278 mg/dL (70-99) Calcium Level 8.8 mg/dL (8.5-10.1) Total Bilirubin 0.4 mg/dL (0.2-1.0) Aspartate Amino Transf (AST/SGOT) 34 U/L (15-37) Alanine Aminotransferase (ALT/SGPT) 83 U/L (14-59) Alkaline Phosphatase 538 U/L (46-116) Troponin I Quantitative < 0.017 ng/mL (0.000-0.055) < 0.017 ng/mL (0.000-0.055) Total Protein 6.3 g/dL (6.4-8.2) Albumin 3.0 g/dL (3.4-5.0) Albumin/Globulin Ratio 0.9 (1.0-1.7) Influenza Type A Antigen Negative (NEGATIVE) Influenza Type B Antigen Negative (NEGATIVE) Group A Streptococcus Rapid Negative (NEGATIVE) Urine Collection Type Unknown Urine Color Yellow Urine Clarity Cloudy Urine pH 5.5 Urine Specific Etlan >=1.030 Urine Protein Negative mg/dL (NEG-TRACE) Urine Glucose (UA) >=1000 mg/dL (NEG) Urine Ketones (Stick) 15 mg/dL (NEG) Urine Blood Negative (NEG) Urine Nitrite Negative (NEG) Urine Bilirubin Small (NEG) Urine Urobilinogen Dipstick 0.2 mg/dL (0.2 mg/dL) Urine Leukocyte Esterase Negative (NEG) Urine RBC 0 /HPF (0-2) Urine WBC 5-10 /HPF (0-4) Urine Squamous Epithelial Cells Mod /LPF Urine Transitional Epithelial Cells Few /LPF Urine Bacteria 0 /HPF (0-FEW) Urine Hyaline Casts Moderate /HPF Urine Mucus Marked /LPF Urine Yeast Present /HPF Test 10/31/19 03:20 Sodium Level 141 mmol/L (136-145) Potassium Level 3.5 mmol/L (3.5-5.1) Chloride Level 106 mmol/L (98-107) Carbon Dioxide Level 25 mmol/L (21-32) Anion Gap 10 (6-14) Blood Urea Nitrogen 12 mg/dL (7-20) Creatinine 0.9 mg/dL (0.6-1.0) Estimated GFR (Cockcroft-Gault) 64.1 Glucose Level 353 mg/dL (70-99) Calcium Level 8.3 mg/dL (8.5-10.1) Troponin I Quantitative < 0.017 ng/mL (0.000-0.055) Thyroid Stimulating Hormone (TSH) 0.258 uIU/mL (0.358-3.74) Medications Current Medications Ondansetron HCl (Zofran) 4 mg PRN Q8HRS PRN IV NAUSEA/VOMITING; Start 10/30/19 at 21:00; Stop 10/30/19 at 23:49; Status DC Ondansetron HCl (Zofran) 4 mg PRN Q6HRS PRN IV NAUSEA/VOMITING 1ST CHOICE; Start 10/30/19 at 23:45 Aspirin (Children'S Aspirin) 81 mg DAILY PO ; Start 10/31/19 at 09:00 Atorvastatin Calcium (Lipitor) 20 mg HS PO ; Start 10/31/19 at 21:00 Divalproex Sodium (Depakote) 500 mg DAILY PO ; Start 10/31/19 at 09:00 Gabapentin (Neurontin) 300 mg HS PO ; Start 10/31/19 at 21:00 Isosorbide Mononitrate (Imdur) 30 mg DAILY PO ; Start 3/3/20 at 09:00 Loperamide HCl (Imodium) 2 mg PRN Q6HRS PRN PO DIARRHEA; Start 10/30/19 at 23:45 Sucralfate (Carafate) 1 gm QIDACHS PO ; Start 10/31/19 at 07:30 Pantoprazole Sodium (Protonix) 40 mg DAILYAC PO ; Start 10/31/19 at 07:30 Acetaminophen (Tylenol) 650 mg PRN Q6HRS PRN PO MILD pain/temp; Start 10/30/19 at 23:45 Enoxaparin Sodium (Lovenox 40mg Syringe) 40 mg Q24H SQ Last administered on 10/31/19at 02:09; Start 10/31/19 at 00:00 Insulin Human Lispro (HumaLOG) 0-5 UNITS TIDACHC SQ ; Start 10/31/19 at 07:30 Dextrose (Dextrose 50%-Water Syringe) 12.5 gm PRN Q15MIN PRN IV SEE COMMENTS; Start 10/31/19 at 00:00 Acetaminophen/ Hydrocodone Bitart (Lortab 5/325) 2 tab PRN Q4HRS PRN PO SEVERE PAIN 7-10; Start 10/31/19 at 02:00 Morphine Sulfate (Ms Contin) 30 mg BID PO Last administered on 10/31/19at 08:17; Start 10/31/19 at 02:00 Active Scripts Active Diflucan (Fluconazole) 100 Mg Tablet 1 Tab PO DAILY 7 Days Carafate (Sucralfate) 1 Gm Tablet 1 Tab PO QID 30 Days Protonix (Pantoprazole Sodium) 20 Mg Tablet.dr 2 Tab PO DAILY 30 Days Reported Hydrocodone-Acetamin 5-325 mg (Hydrocodone/Acetaminophen) 1 Each Tablet 2 Tab PO Q4HRS Multivitamins (Multivitamin) 1 Each Tablet 1 Tab PO DAILY Morphine Sulfate Er (Morphine Sulfate) 30 Mg Tablet.er 1 Tab PO BID Melatonin 3 Mg Tablet 3 Tab PO QHS Isosorbide Mononitrate Er (Isosorbide Mononitrate) 30 Mg Tab.er.24h 1 Tab PO DAILY Imodium A-D (Loperamide HCl) 2 Mg Capsule 2 Mg PO Q6HRS PRN Gabapentin (Gabapentin) 300 Mg Capsule 300 Mg PO HS Flonase Allergy Relief (Fluticasone Propionate) 9.9 Ml [place].susp 2 Sprays NS DAILY Diazepam 10 Mg Tablet 10 Mg PO Q6HRS PRN Depakote (Divalproex Sodium) 500 Mg Tablet.dr 500 Mg PO DAILY Clindamycin Hcl 300 Mg Capsule 300 Mg PO QID Calcium 600 + Vit D Tablet (Calcium Carbonate/Vitamin D3) 1 Each Tablet 1 Each PO BID Atorvastatin Calcium 20 Mg Tablet 20 Mg PO HS Aspirin 81 Mg Tab.chew 1 Tab PO DAILY Vitals/I & O Vital Sign - Last 24 Hours 10/30/19 10/30/19 10/30/19 10/30/19 17:11 22:00 22:15 23:00 Temp 98.5 97.7 98.5 97.7 Pulse 95 72 66 71 Resp 20 16 16 18 B/P (MAP) 140/78 (98) 121/80 (94) 140/68 (92) 126/62 (83) Pulse Ox 98 97 98 90 O2 Delivery Room Air Room Air Room Air Room Air 10/31/19 10/31/19 10/31/19 10/31/19 02:04 03:00 04:15 06:04 Temp 98.0 98.0 Pulse 51 Resp 18 18 20 B/P (MAP) 146/60 (88) Pulse Ox 93 O2 Delivery Room Air Room Air Room Air Room Air 10/31/19 10/31/19 07:00 08:17 Temp 98.2 98.2 Pulse 52 Resp 18 B/P (MAP) 115/56 (75) Pulse Ox 97 93 O2 Delivery Room Air Room Air Intake and Output 10/30/19 10/30/19 10/31/19 15:00 23:00 07:00 Intake Total 360 ml Balance 360 ml ULISES GOODMAN MD Oct 31, 2019 08:48
--- NOTE | 2019-10-31 08:55 | PDOC2 ---
GI CONSULT Reason For Consult: elevated Alk Phos HPI: HPI: 59 y/o female who we saw in late August. At that time complained of a variety of GIi symptoms including epigastric/chest pain, odynophagia/dysphagia, and vomiting. Also noted w/ abnormal LFTs. Was treated w/ empiric Diflucan, also PPI. US showed fatty liver, s/p cholecystectomy, and normal CBD. Viral Hepatitis was negative. UGI suggested 2 small ulcers along the greater curvatu re of the stomach and moderate esophageal dysmotility. Was advised to continue PPI and follow-up for outpt EGD in ~2 months. H/o psych issues - varying history throughout her stay last time, wanted to advance diet, and no swallowing issues noted by staff then or now. This time left AMA from [place] and called 911 to go to the ER. Challenging history as last time. Reports the same issues including odynophagia, dysphagia, vomiting, chest pain, and abd pain. Says no one gave her the right medications. Says stooling normally and denies bleeding. From past encounter, ?h/o GERD, no pancreas history, and past 'scopes ~3 years ago. On ASA. H/o ankle fracture. PMH: PMH: CAD w/ stent, HTN, DM, CKD, GERD, nephrolithiasis, right wrist fracture, left ankle fracture, ?schizophrenia cholecystectomy, left knee replacement, tonsillectomy FH: Family History: No pertinent hx Social History: Smoke: No ALCOHOL: none Drugs: None ROS: Per HPI. Vitals: Vitals: Vital Signs Date Time Temp Pulse Resp B/P (MAP) Pulse Ox O2 Delivery O2 Flow Rate FiO2 10/31/19 08:17 93 Room Air 10/31/19 07:00 98.2 52 18 115/56 (75) 98.2 Labs: Labs: Laboratory Tests Test 10/30/19 17:20 10/30/19 18:58 10/30/19 22:00 10/30/19 23:51 White Blood Count 5.3 x10^3/uL (4.0-11.0) Red Blood Count 4.58 x10^6/uL (3.50-5.40) Hemoglobin 13.3 g/dL (12.0-15.5) Hematocrit 39.7 % (36.0-47.0) Mean Corpuscular Volume 87 fL (79-100) Mean Corpuscular Hemoglobin 29 pg (25-35) Mean Corpuscular Hemoglobin Concent 34 g/dL (31-37) Red Cell Distribution Width 12.9 % (11.5-14.5) Platelet Count 219 x10^3/uL (140-400) Neutrophils (%) (Auto) 69 % (31-73) Lymphocytes (%) (Auto) 23 % (24-48) Monocytes (%) (Auto) 6 % (0-9) Eosinophils (%) (Auto) 1 % (0-3) Basophils (%) (Auto) 0 % (0-3) Neutrophils # (Auto) 3.7 x10^3/uL (1.8-7.7) Lymphocytes # (Auto) 1.2 x10^3/uL (1.0-4.8) Monocytes # (Auto) 0.3 x10^3/uL (0.0-1.1) Eosinophils # (Auto) 0.1 x10^3/uL (0.0-0.7) Basophils # (Auto) 0.0 x10^3/uL (0.0-0.2) Sodium Level 142 mmol/L (136-145) Potassium Level 4.1 mmol/L (3.5-5.1) Chloride Level 103 mmol/L (98-107) Carbon Dioxide Level 26 mmol/L (21-32) Anion Gap 13 (6-14) Blood Urea Nitrogen 11 mg/dL (7-20) Creatinine 1.0 mg/dL (0.6-1.0) Estimated GFR (Cockcroft-Gault) 56.7 BUN/Creatinine Ratio 11 (6-20) Glucose Level 278 mg/dL (70-99) Calcium Level 8.8 mg/dL (8.5-10.1) Total Bilirubin 0.4 mg/dL (0.2-1.0) Aspartate Amino Transf (AST/SGOT) 34 U/L (15-37) Alanine Aminotransferase (ALT/SGPT) 83 U/L (14-59) Alkaline Phosphatase 538 U/L (46-116) Troponin I Quantitative < 0.017 ng/mL (0.000-0.055) < 0.017 ng/mL (0.000-0.055) Total Protein 6.3 g/dL (6.4-8.2) Albumin 3.0 g/dL (3.4-5.0) Albumin/Globulin Ratio 0.9 (1.0-1.7) Influenza Type A Antigen Negative (NEGATIVE) Influenza Type B Antigen Negative (NEGATIVE) Group A Streptococcus Rapid Negative (NEGATIVE) Urine Collection Type Unknown Urine Color Yellow Urine Clarity Cloudy Urine pH 5.5 Urine Specific [place] >=1.030 Urine Protein Negative mg/dL (NEG-TRACE) Urine Glucose (UA) >=1000 mg/dL (NEG) Urine Ketones (Stick) 15 mg/dL (NEG) Urine Blood Negative (NEG) Urine Nitrite Negative (NEG) Urine Bilirubin Small (NEG) Urine Urobilinogen Dipstick 0.2 mg/dL (0.2 mg/dL) Urine Leukocyte Esterase Negative (NEG) Urine RBC 0 /HPF (0-2) Urine WBC 5-10 /HPF (0-4) Urine Squamous Epithelial Cells Mod /LPF Urine Transitional Epithelial Cells Few /LPF Urine Bacteria 0 /HPF (0-FEW) Urine Hyaline Casts Moderate /HPF Urine Mucus Marked /LPF Urine Yeast Present /HPF Test 10/31/19 03:20 Sodium Level 141 mmol/L (136-145) Potassium Level 3.5 mmol/L (3.5-5.1) Chloride Level 106 mmol/L (98-107) Carbon Dioxide Level 25 mmol/L (21-32) Anion Gap 10 (6-14) Blood Urea Nitrogen 12 mg/dL (7-20) Creatinine 0.9 mg/dL (0.6-1.0) Estimated GFR (Cockcroft-Gault) 64.1 Glucose Level 353 mg/dL (70-99) Calcium Level 8.3 mg/dL (8.5-10.1) Troponin I Quantitative < 0.017 ng/mL (0.000-0.055) Thyroid Stimulating Hormone (TSH) 0.258 uIU/mL (0.358-3.74) Allergies: Coded Allergies: No Known Drug Allergies (Unverified , 09/26/19) Medications: Current Medications Medications (Trade) Dose Ordered Sig/Dorian Route PRN Reason Start Time Stop Time Status Last Admin Dose Admin Enoxaparin Sodium (Lovenox 40mg Syringe) 40 mg Q24H SQ 10/31/19 00:00 10/31/19 02:09 Morphine Sulfate (Ms Contin) 30 mg BID PO 10/31/19 02:00 10/31/19 08:17 Imaging: Imaging: CXR IMPRESSION: Findings likely related to mild pulmonary edema. PE: GEN: NAD, has sheets over head HEENT: Atraumatic, PERRL LUNGS: CTAB HEART: RRR +chest wall tenderness ABD: NABS, S/ND, non-specifically tender EXTREMITY: ankle in brace SKIN: No rashes, no jaundice NEURO/PSYCH: A & O 3 A/P: A/P: Chronic chest and epigastric pain Chronic dysphagia/odynophagia - recently empirically treated w/ Diflucan, h/o esophageal dysmotility GERD, PUD (as suggested by recent UGI) - reportedly had EGD ~3 years ago Elevated ALT and Alk Phos CRC screen - reportedly done ~3 years ago Fatty liver S/p cholecystectomy, normal CBD Psych issues, non-compliance Left ankle fracture -- Reviewed w/ [facility] - check MRCP. Will also check AMA. Continue Protonix and Carafate. Add GI cocktail PRN. ZACHARIAH VENCES Oct 31, 2019 08:54
[2019-10-31] MEDS: ASPIRIN CHEWABLE 81 MG TABLET. PO SCH (09:00)
[2019-10-31] MEDS: DIVALPROEX DELAYED RELEASE 500 MG TABLET.DR. PO SCH (09:00)
[2019-10-31] MEDS: ISOSORBIDE MONONITRATE ER 30 MG TAB.ER.24H PO SCH (09:00)
--- NOTE | 2019-10-31 10:02 | PDOC2 ---
FAY GARCIA VANESSA 10/31/19 1001: CARDIAC CONSULT DATE OF CONSULT Date of Consult DATE: 10/31/19 TIME: 09:49 REASON FOR CONSULT Reason for Consult: Chest pain REFERRING PHYSICIAN Referring Physician: Rick Nazario APRN SOURCE Source: Chart review, Patient HISTORY OF PRESENT ILLNESS HISTORY OF PRESENT ILLNESS This is a 59 yo female who presented secondary to epigastric/chest pain. Patient reports pain has been occuring for the last week or so. Has been nausea/vomiting and has not been able to eat. No dizziness, diaphoresis, palpitations, or shortness of breath. Pain located in her epigastric region and seems to be worse with eating. Was seen by our service in August for similar complaints. Was dorian eduled for outpatient stress test but patient did not follow throughout with this. Was also seen by GI service and noted with ophageal dysmotility noted as well as gastric ulcers. Is tearful and reports she had to sign out of her nursing facility AMA to come to the hospital. Does not have any money or a place to go. PAST MEDICAL HISTORY Past Medical History Cardiovascular: CAD, HTN Psych: Anxiety, Bipolar, Schizophrenia (?) Endocrine: Diabetes PAST SURGICAL HISTORY Past Surgical History cholecystectomy, left knee replacement, tonsillectomy FAMILY HISTORY Family History: Diabetes SOCIAL HISTORY Social History Smoke: No ALCOHOL: none Drugs: None Lives: Assisted CURRENT MEDICATIONS CURRENT MEDICATIONS Current Medications Medications (Trade) Dose Ordered Sig/Dorian Route PRN Reason Start Time Stop Time Status Last Admin Dose Admin Enoxaparin Sodium (Lovenox 40mg Syringe) 40 mg Q24H SQ 10/31/19 00:00 10/31/19 02:09 Morphine Sulfate (Ms Contin) 30 mg BID PO 10/31/19 02:00 10/31/19 08:17 ALLERGIES ALLERGIES: Coded Allergies: No Known Drug Allergies (Unverified , 09/26/19) ROS Review of System 14 point ROS conducted with pertinent positives noted above in HPI PHYSICAL EXAM PHYSICAL EXAM General: Alert, Oriented X3, Cooperative HEENT: Atraumatic, Mucous membr. moist/pink Lungs: Clear to auscultation, Other (central chest/epigastric tenderness) Heart: Regular rate, Normal S1, Normal S2 Abdomen: Soft Extremities: No edema, Normal pulses, Other (left foot boot) Skin: No significant lesion Neuro: Normal speech, Sensation intact Psych/Mental Status: tearful MUSCULOSKELETAL: Osteoarthritic changes both hands VITALS/I&O VITALS/I&O: Vital Signs Date Time Temp Pulse Resp B/P (MAP) Pulse Ox O2 Delivery O2 Flow Rate FiO2 10/31/19 08:17 93 Room Air 10/31/19 07:00 98.2 52 18 115/56 (75) 98.2 I & O 10/30/19 10/30/19 10/31/19 15:00 23:00 07:00 Intake Total 360 ml Balance 360 ml LABS Lab: Laboratory Tests Test 10/30/19 17:20 10/30/19 18:58 10/30/19 22:00 10/30/19 23:51 White Blood Count 5.3 x10^3/uL (4.0-11.0) Red Blood Count 4.58 x10^6/uL (3.50-5.40) Hemoglobin 13.3 g/dL (12.0-15.5) Hematocrit 39.7 % (36.0-47.0) Mean Corpuscular Volume 87 fL (79-100) Mean Corpuscular Hemoglobin 29 pg (25-35) Mean Corpuscular Hemoglobin Concent 34 g/dL (31-37) Red Cell Distribution Width 12.9 % (11.5-14.5) Platelet Count 219 x10^3/uL (140-400) Neutrophils (%) (Auto) 69 % (31-73) Lymphocytes (%) (Auto) 23 % (24-48) L Monocytes (%) (Auto) 6 % (0-9) Eosinophils (%) (Auto) 1 % (0-3) Basophils (%) (Auto) 0 % (0-3) Neutrophils # (Auto) 3.7 x10^3/uL (1.8-7.7) Lymphocytes # (Auto) 1.2 x10^3/uL (1.0-4.8) Monocytes # (Auto) 0.3 x10^3/uL (0.0-1.1) Eosinophils # (Auto) 0.1 x10^3/uL (0.0-0.7) Basophils # (Auto) 0.0 x10^3/uL (0.0-0.2) Sodium Level 142 mmol/L (136-145) Potassium Level 4.1 mmol/L (3.5-5.1) Chloride Level 103 mmol/L (98-107) Carbon Dioxide Level 26 mmol/L (21-32) Anion Gap 13 (6-14) Blood Urea Nitrogen 11 mg/dL (7-20) Creatinine 1.0 mg/dL (0.6-1.0) Estimated GFR (Cockcroft-Gault) 56.7 BUN/Creatinine Ratio 11 (6-20) Glucose Level 278 mg/dL (70-99) H Calcium Level 8.8 mg/dL (8.5-10.1) Total Bilirubin 0.4 mg/dL (0.2-1.0) Aspartate Amino Transferase (AST) 34 U/L (15-37) Alanine Aminotransferase (ALT) 83 U/L (14-59) H Alkaline Phosphatase 538 U/L (46-116) H Troponin I Quantitative < 0.017 ng/mL (0.000-0.055) < 0.017 ng/mL (0.000-0.055) Total Protein 6.3 g/dL (6.4-8.2) L Albumin 3.0 g/dL (3.4-5.0) L Albumin/Globulin Ratio 0.9 (1.0-1.7) L Influenza Type A Antigen Negative (NEGATIVE) Influenza Type B Antigen Negative (NEGATIVE) Group A Streptococcus Rapid Negative (NEGATIVE) Urine Collection Type Unknown Urine Color Yellow Urine Clarity Cloudy Urine pH 5.5 Urine Specific [place] >=1.030 Urine Protein Negative mg/dL (NEG-TRACE) Urine Glucose (UA) >=1000 mg/dL (NEG) Urine Ketones (Stick) 15 mg/dL (NEG) Urine Blood Negative (NEG) Urine Nitrite Negative (NEG) Urine Bilirubin Small (NEG) Urine Urobilinogen Dipstick 0.2 mg/dL (0.2 mg/dL) Urine Leukocyte Esterase Negative (NEG) Urine RBC 0 /HPF (0-2) Urine WBC 5-10 /HPF (0-4) Urine Squamous Epithelial Cells Mod /LPF Urine Transitional Epithelial Cells Few /LPF Urine Bacteria 0 /HPF (0-FEW) Urine Hyaline Casts Moderate /HPF Urine Mucus Marked /LPF Urine Yeast Present /HPF Test 10/31/19 03:20 Sodium Level 141 mmol/L (136-145) Potassium Level 3.5 mmol/L (3.5-5.1) Chloride Level 106 mmol/L (98-107) Carbon Dioxide Level 25 mmol/L (21-32) Anion Gap 10 (6-14) Blood Urea Nitrogen 12 mg/dL (7-20) Creatinine 0.9 mg/dL (0.6-1.0) Estimated GFR (Cockcroft-Gault) 64.1 Glucose Level 353 mg/dL (70-99) H Calcium Level 8.3 mg/dL (8.5-10.1) L Troponin I Quantitative < 0.017 ng/mL (0.000-0.055) Thyroid Stimulating Hormone (TSH) 0.258 uIU/mL (0.358-3.74) L Laboratory Tests 10/30/19 17:20 Laboratory Tests 10/30/19 17:20 10/31/19 03:20 ECHOCARDIOGRAM ECHOCARDIOGRAM <Conclusion> The left ventricular systolic function is normal. The ejection fraction is 60%. There is normal LV segmental wall motion. Transmitral Doppler flow pattern is Grade II-pseudonormal filling dynamics. Trace mitral regurgitation. Trace to mild tricuspid regurgitation with an estimated PAP of 33 mmHg. There is no evidence of significant pericardial effusion. DATE: 09/28/19 1304 ASSESSMENT/PLAN ASSESSMENT/PLAN 1. Chest, epigastric pain, atypical. AMI ruled out. Most probably GI in nature. 2. H/o gastric ulcer and persistent vomiting. 2. CAD s/p PCI/stent. reportedly at [facility] about about 7 years ago. 3. Hypertension; controlled 4. Elevated LFTs 5. Diabetes, II 6. Anxiety,depression, bipolar, ? schizophrenia Recommendations Secondary prevention measures No statin for now with elevated LFTs PPI, follow GI recs Social service consult Follow up with Dr. Cuello as scheduled. OSVALDO CUELLO MD 10/31/19 0711: CARDIAC CONSULT ASSESSMENT/PLAN ASSESSMENT/PLAN Patient seen and examined. Agree with GROUND SUPPORT AGENT's assessment and plan. Chest pain with atypical features and most probably GI etiology. Myocardial infarction has been ruled out. CAD status clinically stable. Recent 2-D echo showed normal LV systolic function. Patient did not follow through with ischemic evaluation in the past. Gastroenterology considering possible EGD Thank you for your consultation. FAY GARCIA APRN Oct 31, 2019 10:01 OSVALDO CUELLO MD Oct 31, 2019 16:58
[2019-10-31] MEDS: HYDROcodone/APAP 5/325MG 1 TAB TABLET PO PRN ×3 (12:18→22:59)
--- NOTE | 2019-10-31 13:25 | NUR ---
Patient refuses CHG bath and Nosyn.
[2019-10-31 15:00] VITALS: BP 105/42
[2019-10-31] MEDS ORDERED: LIDO:MAALOX 1:1 20 ML SINGLE DOSE. PO PRN (15:45)
--- NOTE | 2019-10-31 16:13 | NUR ---
SW following. Discussed with RN, pt was apparently at [facility]. SW met with pt, pt did not think she was care home care and did not want to talk about what happened there. SW awaiting a call back from [facility] to determine how many skilled days were used. Pt wanting to go to a facility in [place]. PT/OT recommending SNU. SW to determine facilities available for jail with transition to intermediate frame tender care in [place]. RN notified.
[2019-10-31] MEDS ORDERED: diazePAM 5 MG TABLET PO ONE (18:30)
[2019-10-31 19:00] VITALS: BP 96/44
[2019-10-31] MEDS: GABAPENTIN 300 MG CAPSULE. PO SCH (20:29)
[2019-10-31] MEDS: ATORVASTATIN CALCIUM 20 MG TABLET PO SCH (20:30)
[2019-10-31 20:35] VITALS: BP 96/44
--- NOTE | 2019-10-31 21:00 | NUR ---
Patient continuing to refusing to have blood sugar checked. Patient refusing Insulin also. Will continue to monitor patieny.
[2019-10-31 22:57] VITALS: BP 108/64
--- NOTE | 2019-11-01 00:01 | NUR ---
Ye held. Patient having outpatient procedures in am.
[2019-11-01 00:07] LABS: HEMOGLOBIN A1C 10.2 % (4.8-5.6)
[2019-11-01 03:00] VITALS: BP 134/64
[2019-11-01] MEDS: HYDROcodone/APAP 5/325MG 1 TAB TABLET PO PRN ×4 (03:23→23:22)
[2019-11-01 07:00] VITALS: BP 141/72
[2019-11-01] MEDS: INSULIN LISPRO 300 UNITS/3 ML VIAL. SQ SCH ×4 (07:30→20:39)
[2019-11-01] MEDS: PANTOPRAZOLE 40 MG TABLET.DR. PO SCH (07:30)
[2019-11-01] MEDS: SUCRALFATE 1 GM TABLET. PO SCH ×3 (07:30→15:51)
[2019-11-01 07:45] LABS: ALBUMIN 2.7 g/dL (3.4-5.0); DIRECT BILIRUBIN 0.2 mg/dL (0.0-0.2); TOTAL BILIRUBIN 0.5 mg/dL (0.2-1.0); TOTAL PROTEIN 6.4 g/dL (6.4-8.2)
--- NOTE | 2019-11-01 08:29 | NUR ---
SW following. Discussed with RN, per chart looks like pt is having an EGD today. Currently NPO. VAZQUEZ faxed referral to [facility] for SNU to LTC. Lauro from [facility] will come to do a bedside eval of pt prior to acceptance decision. SW awaiting call back from [facility]. VAZQUEZ will continue to follow.
[2019-11-01] MEDS: ISOSORBIDE MONONITRATE ER 30 MG TAB.ER.24H PO SCH (09:00)
[2019-11-01] MEDS: DIVALPROEX DELAYED RELEASE 500 MG TABLET.DR. PO SCH (09:00)
[2019-11-01] MEDS: ASPIRIN CHEWABLE 81 MG TABLET. PO SCH (09:00)
[2019-11-01] MEDS: MORPHINE ER 30 MG TABLET.ER PO SCH ×2 (09:00→20:39)
--- NOTE | 2019-11-01 09:10 | PDOC ---
PROGRESS NOTES Chief Complaint Chief Complaint A/P: Chest pain - negative cardiac enzymes, EKG. This seems like it may be GI in etiology Coronary artery disease, status post SC with stent deployment previously. Cont meds Type 2 diabetes - will place on sliding scale, A1c Hypertension - cont meds Hyperlipidemia - cont meds Gastroesophageal reflux disease - cont meds. Likely with need for esophageal dilation Generalized weakness - will have PT to evaluated Right heel wound - seems to be a bedsore. Difficulty walking - right heel ulcer and left ankle in brace Left bimalleolar fracture - patient notes she was seen recently by orthopedic surgeon. She is still nonweightbearing and mostly bed bound, wheelchair bound. Morbid obesity - counseled on diet, exercise. Insight seems very poor Elevated alkaline phosphatase - will d/w GI, was just evaluated 5 weeks ago. MRCP grossly abnormal Behavioral disorder - her self care is poor, thoughts seem disorganized. A psychotic disorder with concomitant borderline personality seem to be present. Is on depakote likely for treatment of this. History of Present Illness History of Present Illness Ms Del Rosario is a 59yo F w/ PMHx CAD s/p stent, HTN, HLD, DM2, GERD, left ankle fracture who presented from nursing facility secondary to chest/ epigastric pain. Patient reports pain has been present for the last 2 days and states she has not been allowed to eat for 3 days. Pain is located in her central epigastric region. Pain seems to radiate up the the left chest. No dizziness, diaphoresis, shortness of breath, or nausea/vomiting. Has been requesting GI cocktail, which she reports improves pain. She reported was living in her car for the past 2 years and slipped and fell getting out of her car, fracturing her left ankle, states she went under the car, was in [facility] for the past 18 weeks, apparently. Chest x-ray with mild pulmonary edema. Labs are unremarkable for acute changes. Liver enzymes are chronically elevated with Alkaline phosphatase much higher. Ejection fraction from cardiac workup last month was 60%. . Influenza are negative. Strep is negative. After d/w ED and [facility], apparently she signed out AMA from [facility] and had called 911 and EMS transported her here as she was unable to walk out of the facility. On further ROS her story is inconsistent in many parts and does change. Difficult to follow. She displays some splitting with her remarks about previous physicians. She adamantly denies any mental health diagnoses. She is refusing multiple therapies today. No SOB, chest pain improved. Refusing to have her LLE x-rayed. MRCP results reviewed from 10/30 showing pancreatic atropy and biliary tree dilation, right renal atrophy. She is asking to be left alone so she can have a bowel movement. NPO for EGD. Vitals Vitals Vital Signs Date Time Temp Pulse Resp B/P (MAP) Pulse Ox O2 Delivery O2 Flow Rate FiO2 11/01/19 07:00 97.5 73 18 141/72 (95) 98 Room Air 97.5 Physical Exam General: Alert, Cooperative, No acute distress Abdomen: Normal bowel sounds, Soft, No tenderness, No hepatosplenomegaly, No ma sses Extremities: No clubbing, No cyanosis, No edema, Normal pulses Skin: Other (Right heel abrasion with "" wound cover) Labs LABS Laboratory Tests Test 11/01/19 07:20 Total Bilirubin 0.5 mg/dL (0.2-1.0) Direct Bilirubin 0.2 mg/dL (0.0-0.2) Aspartate Amino Transf (AST/SGOT) 357 U/L (15-37) Alanine Aminotransferase (ALT/SGPT) 272 U/L (14-59) Alkaline Phosphatase 628 U/L (46-116) Total Protein 6.4 g/dL (6.4-8.2) Albumin 2.7 g/dL (3.4-5.0) Assessment and Plan Assessmemt and Plan Problems Medical Problems: (1) Failure to thrive Status: Acute Comment Review of Relevant I have reviewed the following items octavio (where applicable) has been applied. Labs Laboratory Tests Test 10/30/19 17:20 10/30/19 18:58 10/30/19 22:00 10/30/19 23:51 White Blood Count 5.3 x10^3/uL (4.0-11.0) Red Blood Count 4.58 x10^6/uL (3.50-5.40) Hemoglobin 13.3 g/dL (12.0-15.5) Hematocrit 39.7 % (36.0-47.0) Mean Corpuscular Volume 87 fL (79-100) Mean Corpuscular Hemoglobin 29 pg (25-35) Mean Corpuscular Hemoglobin Concent 34 g/dL (31-37) Red Cell Distribution Width 12.9 % (11.5-14.5) Platelet Count 219 x10^3/uL (140-400) Neutrophils (%) (Auto) 69 % (31-73) Lymphocytes (%) (Auto) 23 % (24-48) Monocytes (%) (Auto) 6 % (0-9) Eosinophils (%) (Auto) 1 % (0-3) Basophils (%) (Auto) 0 % (0-3) Neutrophils # (Auto) 3.7 x10^3/uL (1.8-7.7) Lymphocytes # (Auto) 1.2 x10^3/uL (1.0-4.8) Monocytes # (Auto) 0.3 x10^3/uL (0.0-1.1) Eosinophils # (Auto) 0.1 x10^3/uL (0.0-0.7) Basophils # (Auto) 0.0 x10^3/uL (0.0-0.2) Sodium Level 142 mmol/L (136-145) Potassium Level 4.1 mmol/L (3.5-5.1) Chloride Level 103 mmol/L (98-107) Carbon Dioxide Level 26 mmol/L (21-32) Anion Gap 13 (6-14) Blood Urea Nitrogen 11 mg/dL (7-20) Creatinine 1.0 mg/dL (0.6-1.0) Estimated GFR (Cockcroft-Gault) 56.7 BUN/Creatinine Ratio 11 (6-20) Glucose Level 278 mg/dL (70-99) Calcium Level 8.8 mg/dL (8.5-10.1) Total Bilirubin 0.4 mg/dL (0.2-1.0) Aspartate Amino Transf (AST/SGOT) 34 U/L (15-37) Alanine Aminotransferase (ALT/SGPT) 83 U/L (14-59) Alkaline Phosphatase 538 U/L (46-116) Troponin I Quantitative < 0.017 ng/mL (0.000-0.055) < 0.017 ng/mL (0.000-0.055) Total Protein 6.3 g/dL (6.4-8.2) Albumin 3.0 g/dL (3.4-5.0) Albumin/Globulin Ratio 0.9 (1.0-1.7) Influenza Type A Antigen Negative (NEGATIVE) Influenza Type B Antigen Negative (NEGATIVE) Group A Streptococcus Rapid Negative (NEGATIVE) Urine Collection Type Unknown Urine Color Yellow Urine Clarity Cloudy Urine pH 5.5 Urine Specific [place] >=1.030 Urine Protein Negative mg/dL (NEG-TRACE) Urine Glucose (UA) >=1000 mg/dL (NEG) Urine Ketones (Stick) 15 mg/dL (NEG) Urine Blood Negative (NEG) Urine Nitrite Negative (NEG) Urine Bilirubin Small (NEG) Urine Urobilinogen Dipstick 0.2 mg/dL (0.2 mg/dL) Urine Leukocyte Esterase Negative (NEG) Urine RBC 0 /HPF (0-2) Urine WBC 5-10 /HPF (0-4) Urine Squamous Epithelial Cells Mod /LPF Urine Transitional Epithelial Cells Few /LPF Urine Bacteria 0 /HPF (0-FEW) Urine Hyaline Casts Moderate /HPF Urine Mucus Marked /LPF Urine Yeast Present /HPF Test 10/31/19 03:20 11/01/19 07:20 Sodium Level 141 mmol/L (136-145) Potassium Level 3.5 mmol/L (3.5-5.1) Chloride Level 106 mmol/L (98-107) Carbon Dioxide Level 25 mmol/L (21-32) Anion Gap 10 (6-14) Blood Urea Nitrogen 12 mg/dL (7-20) Creatinine 0.9 mg/dL (0.6-1.0) Estimated GFR (Cockcroft-Gault) 64.1 Glucose Level 353 mg/dL (70-99) Hemoglobin A1c 10.2 % (4.8-5.6) Calcium Level 8.3 mg/dL (8.5-10.1) Troponin I Quantitative < 0.017 ng/mL (0.000-0.055) Thyroid Stimulating Hormone (TSH) 0.258 uIU/mL (0.358-3.74) Total Bilirubin 0.5 mg/dL (0.2-1.0) Direct Bilirubin 0.2 mg/dL (0.0-0.2) Aspartate Amino Transf (AST/SGOT) 357 U/L (15-37) Alanine Aminotransferase (ALT/SGPT) 272 U/L (14-59) Alkaline Phosphatase 628 U/L (46-116) Total Protein 6.4 g/dL (6.4-8.2) Albumin 2.7 g/dL (3.4-5.0) Laboratory Tests Test 11/01/19 07:20 Total Bilirubin 0.5 mg/dL (0.2-1.0) Direct Bilirubin 0.2 mg/dL (0.0-0.2) Aspartate Amino Transf (AST/SGOT) 357 U/L (15-37) Alanine Aminotransferase (ALT/SGPT) 272 U/L (14-59) Alkaline Phosphatase 628 U/L (46-116) Total Protein 6.4 g/dL (6.4-8.2) Albumin 2.7 g/dL (3.4-5.0) Medications Current Medications Ondansetron HCl (Zofran) 4 mg PRN Q8HRS PRN IV NAUSEA/VOMITING; Start 10/30/19 at 21:00; Stop 10/30/19 at 23:49; Status DC Ondansetron HCl (Zofran) 4 mg PRN Q6HRS PRN IV NAUSEA/VOMITING 1ST CHOICE; Start 10/30/19 at 23:45 Aspirin (Children'S Aspirin) 81 mg DAILY PO ; Start 10/31/19 at 09:00 Atorvastatin Calcium (Lipitor) 20 mg HS PO Last administered on 10/31/19at 20:30; Start 10/31/19 at 21:00 Divalproex Sodium (Depakote) 500 mg DAILY PO ; Start 10/31/19 at 09:00 Gabapentin (Neurontin) 300 mg HS PO Last administered on 10/31/19at 20:29; Start 10/31/19 at 21:00 Isosorbide Mononitrate (Imdur) 30 mg DAILY PO ; Start 10/31/19 at 09:00 Loperamide HCl (Imodium) 2 mg PRN Q6HRS PRN PO DIARRHEA; Start 10/30/19 at 23:45 Sucralfate (Carafate) 1 gm QIDACHS PO Last administered on 10/31/19at 20:29; Start 10/31/19 at 07:30 Pantoprazole Sodium (Protonix) 40 mg DAILYAC PO ; Start 10/31/19 at 07:30 Acetaminophen (Tylenol) 650 mg PRN Q6HRS PRN PO MILD pain/temp; Start 10/30/19 at 23:45 Enoxaparin Sodium (Lovenox 40mg Syringe) 40 mg Q24H SQ Last administered on 10/31/19at 02:09; Start 10/31/19 at 00:00 Insulin Human Lispro (HumaLOG) 0-5 UNITS TIDACHC SQ ; Start 10/31/19 at 07:30 Dextrose (Dextrose 50%-Water Syringe) 12.5 gm PRN Q15MIN PRN IV SEE COMMENTS; Start 10/31/19 at 00:00 Acetaminophen/ Hydrocodone Bitart (Lortab 5/325) 2 tab PRN Q4HRS PRN PO SEVERE PAIN 7-10 Last administered on 11/01/19at 03:23; Start 10/31/19 at 02:00 Morphine Sulfate (Ms Contin) 30 mg BID PO Last administered on 10/31/19at 20:29; Start 10/31/19 at 02:00 Multi-Ingredient Mouthwash/Gargle (Gi Cocktail) 20 ml PRN QID PRN PO chest/epigastric pain; Start 10/31/19 at 15:45 Diazepam (Valium) 5 mg 1X ONCE PO Last administered on 10/31/19at 20:30; Start 10/31/19 at 18:30; Stop 10/31/19 at 18:31; Status DC Active Scripts Active Diflucan (Fluconazole) 100 Mg Tablet 1 Tab PO DAILY 7 Days Carafate (Sucralfate) 1 Gm Tablet 1 Tab PO QID 30 Days Protonix (Pantoprazole Sodium) 20 Mg Tablet.dr 2 Tab PO DAILY 30 Days Reported Hydrocodone-Acetamin 5-325 mg (Hydrocodone/Acetaminophen) 1 Each Tablet 2 Tab PO Q4HRS Multivitamins (Multivitamin) 1 Each Tablet 1 Tab PO DAILY Morphine Sulfate Er (Morphine Sulfate) 30 Mg Tablet.er 1 Tab PO BID Melatonin 3 Mg Tablet 3 Tab PO QHS Isosorbide Mononitrate Er (Isosorbide Mononitrate) 30 Mg Tab.er.24h 1 Tab PO DAILY Imodium A-D (Loperamide HCl) 2 Mg Capsule 2 Mg PO Q6HRS PRN Gabapentin (Gabapentin) 300 Mg Capsule 300 Mg PO HS Flonase Allergy Relief (Fluticasone Propionate) 9.9 Ml [place].susp 2 Sprays NS DAILY Diazepam 10 Mg Tablet 10 Mg PO Q6HRS PRN Depakote (Divalproex Sodium) 500 Mg Tablet.dr 500 Mg PO DAILY Clindamycin Hcl 300 Mg Capsule 300 Mg PO QID Calcium 600 + Vit D Tablet (Calcium Carbonate/Vitamin D3) 1 Each Tablet 1 Each PO BID Atorvastatin Calcium 20 Mg Tablet 20 Mg PO HS Aspirin 81 Mg Tab.chew 1 Tab PO DAILY Vitals/I & O Vital Sign - Last 24 Hours 10/31/19 10/31/19 10/31/19 10/31/19 12:18 12:20 13:26 15:00 Temp 98.3 98.3 Pulse 72 Resp 18 B/P (MAP) 105/42 (63) Pulse Ox 93 93 93 97 O2 Delivery Room Air Room Air Room Air Room Air 10/31/19 10/31/19 10/31/19 10/31/19 17:23 19:00 19:45 20:29 Temp 98.1 98.1 Pulse 82 Resp 17 20 B/P (MAP) 96/44 (61) Pulse Ox 97 96 O2 Delivery Room Air Room Air Room Air Room Air 10/31/19 10/31/19 10/31/19 10/31/19 20:35 22:57 22:59 23:59 Temp 98.1 98.2 98.1 98.2 Pulse 82 65 Resp 17 18 20 20 B/P (MAP) 96/44 (61) 108/64 (79) Pulse Ox 96 98 O2 Delivery Room Air Room Air Room Air Room Air 10/31/19 11/01/19 11/01/19 11/01/19 23:59 03:00 03:23 04:23 Temp 98.3 98.3 Pulse 58 Resp 20 18 20 20 B/P (MAP) 134/64 (87) Pulse Ox 95 O2 Delivery Room Air Room Air Room Air Room Air 11/01/19 07:00 Temp 97.5 97.5 Pulse 73 Resp 18 B/P (MAP) 141/72 (95) Pulse Ox 98 O2 Delivery Room Air Intake and Output 10/31/19 10/31/19 11/01/19 15:00 23:00 07:00 Intake Total 15 ml Balance 15 ml Images MRI abdomen: The liver is homogeneous in appearance. The spleen is homogeneous in appearance and normal in size. The pancreas is diffusely atrophic with associated dilatation of the main pancreatic duct. Gallbladder is surgically absent. No adrenal mass is evident. Right renal atrophy is seen. No hydronephrosis. There is a lower pole right renal nodule measuring 10 mm which is bright on T2-weighted images most likely representing a cyst. This was seen on the previous sonogram but the lower pole of the right kidney was obscured by overlying bowel gas. No focal aneurysmal dilatation of the abdominal aorta is seen. No enlarged abdominal lymphadenopathy is seen. No ascites is seen. MRCP: Biliary tree is diffusely dilated down into the distal common bile duct. The common bile duct measures 14 mm. There is a focus of narrowing of the distal common bile duct and then distal to this point extending to the ampulla is a more normal-caliber common bile duct measuring 6 mm in caliber. This narrowing does not demonstrate the typical inflammatory or neoplastic stricture appearance and therefore may represent a kink in the bile duct. Pancreatic duct is diffusely dilated measuring up to 9 mm with multiple side branch cystic areas. These side branch cystic areas could be due to ductal dilatation from the pancreatic atrophy but intraductal papillary mucinous neoplasm cannot be excluded. IMPRESSION: Diffuse dilatation of the biliary tree down to the distal common bile duct. There is narrowing or kinking of the distal common bile duct as described above. No common bile duct stone is evident. Diffuse dilatation of the main pancreatic duct with side branch cystic areas. This most likely is due to the severe diffuse pancreatic atrophy which is seen. Sidebranch cystic areas could be seen with intraductal papillary mucinous neoplasm and therefore this has not been excluded. There is no soft tissue mass in these areas however. This finding may be followed in 6 months to one year. Right renal atrophy. 10 mm indeterminate nodule of the lower pole of the right kidney. Due to lack of IV contrast and the solitary nature of this nodule, further evaluation is recommended. This may be further evaluated with dedicated right renal sonography. This most likely represents a cyst. ULISES GOODMAN MD Nov 01, 2019 09:10
--- NOTE | 2019-11-01 10:05 | NUR ---
Cleared reassessments from previous shift on EMAR.
--- NOTE | 2019-11-01 13:26 | PDOC4 ---
Operative Note Operative Note EGD with dilation Meds propofol per anesthesia Pre-op dx dysphagia/abnl UGI with possible Gastric ulcers Post-op dx Schatzki ring s/p 54 FR Lydia non-erosive gastritis Plan advance diet as tolerated JOSEFINA LESTER MD Nov 01, 2019 13:26
--- NOTE | 2019-11-01 14:53 | RAD ---
MRI abdomen without contrast and MRCP: Clinical indications: Elevated alkaline phosphatase. Technique: T1 and T2 weighted MRI sequences of the abdomen was performed in the axial and coronal planes. In phase and out of phase MRI sequences were performed. Using a single shot heavily T2-weighted fast spin-echo and MIP algorithm, 3-D reconstructed MRCP was generated. Findings: MRI abdomen: The liver is homogeneous in appearance. The spleen is homogeneous in appearance and normal in size. The pancreas is diffusely atrophic with associated dilatation of the main pancreatic duct. Gallbladder is surgically absent. No adrenal mass is evident. Right renal atrophy is seen. No hydronephrosis. There is a lower pole right renal nodule measuring 10 mm which is bright on T2-weighted images most likely representing a cyst. This was seen on the previous sonogram but the lower pole of the right kidney was obscured by overlying bowel gas. No focal aneurysmal dilatation of the abdominal aorta is seen. No enlarged abdominal lymphadenopathy is seen. No ascites is seen. MRCP: Biliary tree is diffusely dilated down into the distal common bile duct. The common bile duct measures 14 mm. There is a focus of narrowing of the distal common bile duct and then distal to this point extending to the ampulla is a more normal-caliber common bile duct measuring 6 mm in caliber. This narrowing does not demonstrate the typical inflammatory or neoplastic stricture appearance and therefore may represent a kink in the bile duct. Pancreatic duct is diffusely dilated measuring up to 9 mm with multiple side branch cystic areas. These side branch cystic areas could be due to ductal dilatation from the pancreatic atrophy but intraductal papillary mucinous neoplasm cannot be excluded. IMPRESSION: Diffuse dilatation of the biliary tree down to the distal common bile duct. There is narrowing or kinking of the distal common bile duct as described above. No common bile duct stone is evident. Diffuse dilatation of the main pancreatic duct with side branch cystic areas. This most likely is due to the severe diffuse pancreatic atrophy which is seen. Sidebranch cystic areas could be seen with intraductal papillary mucinous neoplasm and therefore this has not been excluded. There is no soft tissue mass in these areas however. This finding may be followed in 6 months to one year. Right renal atrophy. 10 mm indeterminate nodule of the lower pole of the right kidney. Due to lack of IV contrast and the solitary nature of this nodule, further evaluation is recommended. This may be further evaluated with dedicated right renal sonography. This most likely represents a cyst. Electronically signed by: Jewel Paez MD (11/01/2019 2:50 PM) [facility]
[2019-11-01 15:00] VITALS: BP 138/82
--- NOTE | 2019-11-01 15:22 | NUR ---
Wound Care: Patient seen per wound care consult. See wound assessment. Patient has DFU to the right heel and right lateral foot. Wounds cleansed and assessed. Recommendations for Medi-honey gel to wound, vaseline gauze, and foam dressing change on Wednesday and Wednesday. To the right lateral foot recommendations for foam dressing and change on Wednesday only. Dressings applied. Patient also has Stage II pressure ulcer to coccyx which she states she received during her stay at the prior facility in which she came from. Wound cleansed, assessed, measured, and pictured. Recommendations for contact layer and foam dressing, change on Wednesday and Wednesday. patient has brace to left foot and leg which she refused to allow us to remove and assess skin underneath. No other wounds noted upon complete head to toe assessment. Dressing change instructions left in room as well as extra honey for next dressing change. A p-500 bed, a heel medix, and a wheelchair cushion ordered for this patient.
[2019-11-01] MEDS: ONDANSETRON PF 4 MG/2 ML VIAL. IV PRN (15:51)
[2019-11-01] MEDS: diazePAM 2 MG TABLET PO PRN (18:05)
--- NOTE | 2019-11-01 19:37 | NUR ---
Pt refused CHG bath.
[2019-11-01 19:40] VITALS: BP 155/98
[2019-11-01] MEDS: ATORVASTATIN CALCIUM 20 MG TABLET PO SCH (20:38)
[2019-11-01] MEDS: GABAPENTIN 300 MG CAPSULE. PO SCH (20:38)
--- NOTE | 2019-11-01 20:40 | NUR ---
Patient refused fingerstick blood glucose check and scheduled insulin administration at this time.
[2019-11-01 23:00] VITALS: BP 148/92
[2019-11-01] MEDS: ENOXAPARIN 40 MG/0.4 ML SYRINGE. SQ SCH ×2 (23:22)
--- NOTE | 2019-11-01 23:30 | NUR ---
Patient refused scheduled dose of Lovenox.
[2019-11-02 03:00] VITALS: BP 125/71
[2019-11-02] MEDS: HYDROcodone/APAP 5/325MG 1 TAB TABLET PO PRN ×4 (03:28→20:38)
[2019-11-02] MEDS: PANTOPRAZOLE 40 MG TABLET.DR. PO SCH (05:46)
[2019-11-02] MEDS: SUCRALFATE 1 GM TABLET. PO SCH ×2 (05:46→16:30)
[2019-11-02] MEDS: diazePAM 2 MG TABLET PO PRN ×2 (05:46→16:33)
[2019-11-02 07:00] VITALS: BP 120/74
[2019-11-02] MEDS: INSULIN LISPRO 300 UNITS/3 ML VIAL. SQ SCH ×4 (07:30→20:39)
--- NOTE | 2019-11-02 07:54 | PDOC ---
PROGRESS NOTES Chief Complaint Chief Complaint A/P: Chest pain - negative cardiac enzymes, EKG. This seems like it may be GI in etiology Coronary artery disease, status post AR with stent deployment previously. Cont meds Type 2 diabetes - will place on sliding scale, A1c 10.2. She is refusing a lot of insulin therapy Hypertension - cont meds Hyperlipidemia - cont meds Gastroesophageal reflux disease - cont meds. Likely with need for esophageal dilation Generalized weakness - will have PT to evaluated Right heel wound - seems to be a bedsore. Difficulty walking - right heel ulcer and left ankle in brace Left bimalleolar fracture - patient notes she was seen recently by orthopedic surgeon. She is still nonweightbearing and mostly bed bound, wheelchair bound. Morbid obesity - counseled on diet, exercise. Insight seems very poor Elevated alkaline phosphatase - will d/w GI, was just evaluated 5 weeks ago. MRCP grossly abnormal Behavioral disorder - her self care is poor, thoughts seem disorganized. A psychotic disorder with concomitant borderline personality seem to be present. Is on depakote likely for treatment of this. History of Present Illness History of Present Illness Ms Del Rosario is a 59yo F w/ PMHx CAD s/p stent, HTN, HLD, DM2, GERD, left ankle fracture who presented from nursing facility secondary to chest/ epigastric pain. Patient reports pain has been present for the last 2 days and states she has not been allowed to eat for 3 days. Pain is located in her central epigastric region. Pain seems to radiate up the the left chest. No dizziness, diaphoresis, shortness of breath, or nausea/vomiting. Has been requesting GI cocktail, which she reports improves pain. She reported was living in her car for the past 2 years and slipped and fell getting out of her car, fracturing her left ankle, states she went under the car, was in [facility] for the past 18 weeks, apparently. Chest x-ray with mild pulmonary edema. Labs are unremarkable for acute changes. Liver enzymes are chronically elevated with Alkaline phosphatase much higher. Ejection fraction from cardiac workup last month was 60%. . Influenza are negative. Strep is negative. After d/w ED and [facility], apparently she signed out AMA from [facility] and had called 911 and EMS transported her here as she was unable to walk out of the facility. On further ROS her story is inconsistent in many parts and does change. Difficult to follow. She displays some splitting with her remarks about previous physicians. She adamantly denies any mental health diagnoses. 10/31: She is refusing multiple therapies today. Refusing to have her LLE x-rayed. MRCP results reviewed from 10/30 showing pancreatic atropy and biliary tree dilation, right renal atrophy. EGD - Schatzki ring dilated She had some nausea after EGD. This morning refusing xray of her ankle. Tells me she needs her keys to her car, thinks staff still has them in [place]. Heel wound improved. Chest pain resolved. Vitals Vitals Vital Signs Date Time Temp Pulse Resp B/P (MAP) Pulse Ox O2 Delivery O2 Flow Rate FiO2 11/02/19 04:30 16 96 Room Air 11/02/19 03:00 97.8 65 125/71 (89) 97.8 Physical Exam General: Alert, Cooperative, No acute distress Abdomen: Normal bowel sounds, Soft, No tenderness, No hepatosplenomegaly, No masses Extremities: No clubbing, No cyanosis, No edema, Normal pulses Skin: Other (Right heel abrasion with "" wound cover) Assessment and Plan Assessmemt and Plan Problems Medical Problems: (1) Failure to thrive Status: Acute Comment Review of Relevant I have reviewed the following items octavio (where applicable) has been applied. Labs Laboratory Tests Test 11/01/19 07:20 Total Bilirubin 0.5 mg/dL (0.2-1.0) Direct Bilirubin 0.2 mg/dL (0.0-0.2) Aspartate Amino Transf (AST/SGOT) 357 U/L (15-37) Alanine Aminotransferase (ALT/SGPT) 272 U/L (14-59) Alkaline Phosphatase 628 U/L (46-116) Total Protein 6.4 g/dL (6.4-8.2) Albumin 2.7 g/dL (3.4-5.0) Microbiology 10/30/19 Urine Culture - Final, Complete 10/30/19 Urine Culture Result 1 (LAURE) - Final, Complete Medications Current Medications Ondansetron HCl (Zofran) 4 mg PRN Q8HRS PRN IV NAUSEA/VOMITING; Start 10/30/19 at 21:00; Stop 10/30/19 at 23:49; Status DC Ondansetron HCl (Zofran) 4 mg PRN Q6HRS PRN IV NAUSEA/VOMITING 1ST CHOICE Last administered on 11/01/19 15:51; Start 10/30/19 at 23:45 Aspirin (Children'S Aspirin) 81 mg DAILY PO ; Start 10/31/19 at 09:00 Atorvastatin Calcium (Lipitor) 20 mg HS PO Last administered on 11/01/19 20:38; Start 10/31/19 at 21:00 Divalproex Sodium (Depakote) 500 mg DAILY PO ; Start 10/31/19 at 09:00 Gabapentin (Neurontin) 300 mg HS PO Last administered on 11/01/19 20:38; Start 10/31/19 at 21:00 Isosorbide Mononitrate (Imdur) 30 mg DAILY PO ; Start 10/31/19 at 09:00 Loperamide HCl (Imodium) 2 mg PRN Q6HRS PRN PO DIARRHEA; Start 10/30/19 at 23:45 Sucralfate (Carafate) 1 gm QIDACHS PO Last administered on 10/31/19at 20:29; Start 10/31/19 at 07:30; Stop 11/01/19 at 13:30; Status DC Pantoprazole Sodium (Protonix) 40 mg DAILYAC PO Last administered on 11/02/19at 05:46; Start 10/31/19 at 07:30 Acetaminophen (Tylenol) 650 mg PRN Q6HRS PRN PO MILD pain/temp; Start 10/30/19 at 23:45 Enoxaparin Sodium (Lovenox 40mg Syringe) 40 mg Q24H SQ Last administered on 10/31/19at 02:09; Start 10/31/19 at 00:00 Insulin Human Lispro (HumaLOG) 0-5 UNITS TIDACHC SQ ; Start 10/31/19 at 07:30 Dextrose (Dextrose 50%-Water Syringe) 12.5 gm PRN Q15MIN PRN IV SEE COMMENTS; Start 10/31/19 at 00:00 Acetaminophen/ Hydrocodone Bitart (Lortab 5/325) 2 tab PRN Q4HRS PRN PO SEVERE PAIN 7-10 Last administered on 11/02/19at 03:28; Start 10/31/19 at 02:00 Morphine Sulfate (Ms Contin) 30 mg BID PO Last administered on 11/01/19at 20:39; Start 10/31/19 at 02:00 Multi-Ingredient Mouthwash/Gargle (Gi Cocktail) 20 ml PRN QID PRN PO chest/epigastric pain; Start 10/31/19 at 15:45 Diazepam (Valium) 5 mg 1X ONCE PO Last administered on 10/31/19at 20:30; Start 10/31/19 at 18:30; Stop 10/31/19 at 18:31; Status DC Sucralfate (Carafate) 1 gm BIDAC PO Last administered on 11/01/19at 15:51; Start 11/01/19 at 16:30 Diazepam (Valium) 2 mg PRN TID PRN PO ANXIETY Last administered on 11/02/19at 05:46; Start 11/01/19 at 16:30 Active Scripts Active Diflucan (Fluconazole) 100 Mg Tablet 1 Tab PO DAILY 7 Days Carafate (Sucralfate) 1 Gm Tablet 1 Tab PO QID 30 Days Protonix (Pantoprazole Sodium) 20 Mg Tablet.dr 2 Tab PO DAILY 30 Days Reported Hydrocodone-Acetamin 5-325 mg (Hydrocodone/Acetaminophen) 1 Each Tablet 2 Tab PO Q4HRS Multivitamins (Multivitamin) 1 Each Tablet 1 Tab PO DAILY Morphine Sulfate Er (Morphine Sulfate) 30 Mg Tablet.er 1 Tab PO BID Melatonin 3 Mg Tablet 3 Tab PO QHS Isosorbide Mononitrate Er (Isosorbide Mononitrate) 30 Mg Tab.er.24h 1 Tab PO DAILY Imodium A-D (Loperamide HCl) 2 Mg Capsule 2 Mg PO Q6HRS PRN Gabapentin (Gabapentin) 300 Mg Capsule 300 Mg PO HS Flonase Allergy Relief (Fluticasone Propionate) 9.9 Ml [place].susp 2 Sprays NS DAILY Diazepam 10 Mg Tablet 10 Mg PO Q6HRS PRN Depakote (Divalproex Sodium) 500 Mg Tablet.dr 500 Mg PO DAILY Clindamycin Hcl 300 Mg Capsule 300 Mg PO QID Calcium 600 + Vit D Tablet (Calcium Carbonate/Vitamin D3) 1 Each Tablet 1 Each PO BID Atorvastatin Calcium 20 Mg Tablet 20 Mg PO HS Aspirin 81 Mg Tab.chew 1 Tab PO DAILY Vitals/I & O Vital Sign - Last 24 Hours 11/01/19 11/01/19 11/01/194/20 08:00 12:48 12:49 13:30 Temp 97.5 98.1 97.5 98.1 Pulse 73 77 Resp 20 B/P (MAP) 136/67 Pulse Ox 98 99 O2 Delivery Room Air Room Air Nasal Cannula 11/01/19 11/01/19 11/01/19 11/01/19 13:45 14:00 14:40 15:00 Temp 98.1 97.8 98.1 97.8 Pulse 87 86 72 Resp 20 20 18 B/P (MAP) 152/77 137/79 138/82 (100) Pulse Ox 97 97 97 O2 Delivery Room Air Room Air Room Air Room Air 11/01/19 11/01/19 11/01/19 11/01/19 15:40 19:00 19:40 20:00 Temp 98.0 98.0 Pulse 83 Resp 20 B/P (MAP) 155/98 (117) Pulse Ox 95 O2 Delivery Room Air Room Air Room Air Room Air 11/01/19 11/01/19 11/01/19 11/01/19 20:36 20:39 23:00 23:22 Temp 98.1 98.1 Pulse 75 Resp 16 16 18 16 B/P (MAP) 148/92 (110) Pulse Ox 96 O2 Delivery Room Air Room Air Room Air Room Air 11/02/19 11/02/19 11/02/19 11/02/19 00:30 00:30 03:00 03:28 Temp 97.8 97.8 Pulse 65 Resp 16 16 18 16 B/P (MAP) 125/71 (89) Pulse Ox 96 O2 Delivery Room Air Room Air Room Air Room Air 11/02/19 04:30 Resp 16 Pulse Ox 96 O2 Delivery Room Air Intake and Output 11/01/19 11/01/19 11/02/19 15:00 23:00 07:00 Intake Total 0 ml 320 ml 240 ml Output Total 200 ml Balance 0 ml 320 ml 40 ml ULISES GOODMAN MD Nov 02, 2019 07:54
[2019-11-02] MEDS: DIVALPROEX DELAYED RELEASE 500 MG TABLET.DR. PO SCH (09:00)
[2019-11-02] MEDS: ISOSORBIDE MONONITRATE ER 30 MG TAB.ER.24H PO SCH (09:12)
[2019-11-02] MEDS: ASPIRIN CHEWABLE 81 MG TABLET. PO SCH (09:12)
[2019-11-02] MEDS: MORPHINE ER 30 MG TABLET.ER PO SCH ×2 (09:12→20:37)
--- NOTE | 2019-11-02 10:13 | PDOC ---
Subjective: Subjective: Swallowing better but has a hard time with bread crust. Stomach still hurts but not after eating. Says she's homeless and can't do anything as an outpt. Feet hurt, head hurts. Objective: Objective: Reviewed MRCP results w/ Dr. Garcia yesterday, CA19-9 ordered. Refusing various meds and care. Vital Signs: Vital Signs Date Time Temp Pulse Resp B/P (MAP) Pulse Ox O2 Delivery O2 Flow Rate FiO2 11/02/19 09:12 Room Air 11/02/19 09:12 65 125/71 11/02/19 07:00 98.1 18 98 98.1 Labs: URINE CULTURE RES 1 Final Comment Mixed urogenital garret Imaging: EGD 11/01/19 Schatzki ring s/p 54 FR Freeman non-erosive gastritis MRI abdomen without contrast and MRCP 11/01/19 Findings: MRI abdomen: The liver is homogeneous in appearance. The spleen is homogeneous in appearance and normal in size. The pancreas is diffusely atrophic with associated dilatation of the main pancreatic duct. Gallbladder is surgically absent. No adrenal mass is evident. Right renal atrophy is seen. No hydronephrosis. There is a lower pole right renal nodule measuring 10 mm which is bright on T2-weighted images most likely representing a cyst. This was seen on the previous sonogram but the lower pole of the right kidney was obscured by overlying bowel gas. No focal aneurysmal dilatation of the abdominal aorta is seen. No enlarged abdominal lymphadenopathy is seen. No ascites is seen. MRCP: Biliary tree is diffusely dilated down into the distal common bile duct. The common bile duct measures 14 mm. There is a focus of narrowing of the distal common bile duct and then distal to this point extending to the ampulla is a more normal-caliber common bile duct measuring 6 mm in caliber. This narrowing does not demonstrate the typical inflammatory or neoplastic stricture appearance and therefore may represent a kink in the bile duct. Pancreatic duct is diff usely dilated measuring up to 9 mm with multiple side branch cystic areas. These side branch cystic areas could be due to ductal dilatation from the pancreatic atrophy but intraductal papillary mucinous neoplasm cannot be excluded. IMPRESSION: Diffuse dilatation of the biliary tree down to the distal common bile duct. There is narrowing or kinking of the distal common bile duct as described above. No common bile duct stone is evident. Diffuse dilatation of the main pancreatic duct with side branch cystic areas. This most likely is due to the severe diffuse pancreatic atrophy which is seen. Sidebranch cystic areas could be seen with intraductal papillary mucinous neoplasm and therefore this has not been excluded. There is no soft tissue mass in these areas however. This finding may be followed in 6 months to one year. Right renal atrophy. 10 mm indeterminate nodule of the lower pole of the right kidney. Due to lack of IV contrast and the solitary nature of this nodule, further evaluation is recommended. This may be further evaluated with dedicated right renal sonography. This most likely represents a cyst. PE: GEN: NAD - breakfast tray 75% consumed LUNGS: CTAB HEART: RRR ABD: tender LUQ, soft NEURO/PSYCH: A & O 3 A/P: Chronic pain Chronic dysphagia - Schatkzi's ring dilated, h/o esophageal dysmotility on past imaging GERD, gastritis - on PPI Elevated LFTs - Alk Phos 628 yesterday Abnormal MRCP - atrophic pancreas, dilated PD w/ multiple side branch cystic areas (atrophy vs IPMNs), dilated biliary tree w/ possible CBD kink Psych issues, non-compliance -- AMA and CA19-9 pending. Consider outpt ERCP if CA19-9 abnormal. Had refused Carafate - could probably stop this. Would continue PPI. Discussed avoidance of foods like bread and meats. Hemodynamically unstable?: No Is patient in severe pain?: No Is NPO status required?: No LEOPOLDO-ZACHARIAH KOLB Nov 02, 2019 10:13
--- NOTE | 2019-11-02 10:28 | NUR ---
[facility] following. Discussed with RN, [facility] [place] declined to take pt yesterday. [facility] faxed referral to [facility]. [facility] is coming to see pt today to determine if pt is appropriate for their facility. [facility] contacted [facility] back, pt used 6 medicare days and apparently wasn't wanting to participate in therapy so then switched to medicaid status. [facility] will continue to follow. Addendum: 11/02/19 at 1313 by ZEENAT SHUKLA [facility] met with pt, advised pt seems appropriate, just have to check with the clinical team. [facility] awaiting acceptance decision. [place] notified. Addendum: 11/02/19 at 1536 by ZEENAT SHUKLA [facility] contacted [facility] to determine if pt was accepted. [facility] advised they are unable to accept pt due to reports from [facility] about pt's behaviors and about pt being an "elopement risk". SW advised [facility] did not inform SW of this and this is the first SW has heard of this. [facility] contacted [facility] for fax number, faxed pt referral. [facility] spoke with administration at [facility] to advise pt is ready for discharge today. Awaiting acceptance decision. RN notified.
[2019-11-02 11:00] VITALS: BP 104/52
[2019-11-02] MEDS ORDERED: INSU100I11 SQ (12:49)
[2019-11-02] MEDS ORDERED: HYDR-2759 PO (12:49)
[2019-11-02] MEDS ORDERED: DIAZ2TAB3 PO (12:49)
[2019-11-02] MEDS ORDERED: INSU100I13 SQ (12:49)
--- NOTE | 2019-11-02 12:50 | SNU/HH DC ---
DISCHARGE ORDERS DISCHARGE INFORMATION: DISCHARGE DATE: Nov 02, 2019 FINAL DIAGNOSIS Problems Medical Problems: (1) Failure to thrive Status: Acute CONDITION ON DISCHARGE: Stable CODE STATUS: Code Status: Full POST DISCHARGE ORDERS: ACTIVITY ORDERS: No restrictions, Resume previous activity, Activity as tolerated WEIGHT BEARING STATUS: No restrictions, Full weight bearing, As tolerated DIET AFTER DISCHARGE: ADA WOUND/INCISION CARE: No wound care needed CHECKS AFTER DISCHARGE: CHECKS AFTER DISCHARGE: Check blood press - daily, Check blood sugar, ac/hs, Check your Temp as needed TREATMENT/EQUIPMENT ORDERS: ADAPTIVE EQUIPMENT NEEDED: [facility] Physical Therapy For: Evalulation/Treatment Occupational Therapy For: Evaluation/Treatment DISCHARGE MEDICATIONS: Home Meds Active Scripts Insulin Glargine,Hum.rec.anlog (LANTUS SOLOSTAR) 100 Unit/1 Ml Insuln.pen, 10 UNIT SQ QHS for DM2 for 30 Days, #15 ML 3 Refills Prov:ULISES GOODMAN MD 11/02/19 Insulin Lispro (HUMALOG) 100 Unit/1 Ml Insuln.pen, 0 UNITS SQ TIDACHC for DM2 for 30 Days, #30 EACH Prov:ULISES GOODMAN MD 11/02/19 Diazepam (DIAZEPAM) 2 Mg Tablet, 2 MG PO PRN TID PRN for ANXIETY for 6 Days, #15 TAB Prov:ULISES GOODMAN MD 11/02/19 Hydrocodone/Acetaminophen (Hydrocodone-Acetamin 5-325 mg) 1 Each Tablet, 1 TAB PO PRN Q6HRS PRN for PAIN for 6 Days, #20 TAB Prov:ULISES GOODMAN MD 11/02/19 Sucralfate (CARAFATE) 1 Gm Tablet, 1 TAB PO QID for GERD for 30 Days, #120 TAB 0 Refills Prov:MEIR NERI MD 09/29/19 Pantoprazole Sodium (PROTONIX) 20 Mg Tablet.dr, 2 TAB PO DAILY for GERD for 30 Days, #60 TAB Prov:MEIR NERI MD 09/29/19 Reported Medications Multivitamin (MULTIVITAMINS) 1 Each Tablet, 1 TAB PO DAILY for supplement, #90 TAB 3 Refills 09/27/19 Melatonin (MELATONIN) 3 Mg Tablet, 3 TAB PO QHS for insomnia, #30 TAB 2 Refills 09/27/19 Isosorbide Mononitrate (ISOSORBIDE MONONITRATE ER) 30 Mg Tab.er.24h, 1 TAB PO DAILY for chest pain, #30 TAB 5 Refills 09/27/19 Loperamide HCl (Imodium A-D) 2 Mg Capsule, 2 MG PO Q6HRS PRN for DIARRHEA, CAP 09/27/19 Gabapentin (GABAPENTIN ) 300 Mg Capsule, 300 MG PO HS for NEUROGENIC PAIN, CAP 09/27/19 Fluticasone Propionate (Flonase Allergy Relief) 9.9 Ml [place].susp, 2 SPRAYS NS DAILY for allergy, BOTTLE 09/27/19 Divalproex Sodium (DEPAKOTE) 500 Mg Tablet.dr, 500 MG PO DAILY for mood disorder, TAB 09/27/19 Calcium Carbonate/Vitamin D3 (CALCIUM 600 + VIT D TABLET) 1 Each Tablet, 1 EACH PO BID for supplement, TAB 09/27/19 Atorvastatin Calcium (ATORVASTATIN CALCIUM) 20 Mg Tablet, 20 MG PO HS for FOR CHOLESTEROL, #30 TAB 0 Refills 09/27/19 Aspirin (ASPIRIN) 81 Mg Tab.chew, 1 TAB PO DAILY for antiplatelet, #30 TAB 3 Refills 09/27/19 Discontinued Reported Medications Morphine Sulfate (MORPHINE SULFATE ER) 30 Mg Tablet.er, 1 TAB PO BID for pain, #60 TAB 09/27/19 Diazepam (DIAZEPAM) 10 Mg Tablet, 10 MG PO Q6HRS PRN for ANXIETY, TAB 09/27/19 Clindamycin Hcl (CLINDAMYCIN HCL) 300 Mg Capsule, 300 MG PO QID for infection, CAP 09/27/19 Discontinued Scripts Fluconazole (DIFLUCAN) 100 Mg Tablet, 1 TAB PO DAILY for CANDIDIASIS for 7 Days, #7 TAB 0 Refills Prov:MEIR NERI MD 09/29/19 ULISES GOODMAN MD Nov 02, 2019 12:50
[2019-11-02 15:00] VITALS: BP 126/66
--- NOTE | 2019-11-02 15:36 | RAD ---
Two-view right ankle HISTORY: Healing fracture Limited 2 view AP lateral views There is gross osteopenia. There is diffuse soft tissue swelling. There is a fracture of the medial malleolus level plafond and with mild distraction and lateral displacement. There is an oblique fracture of the lateral malleolus high above the plafond and with mild posterior and lateral displacement. There is widening of the medial mortise. There is soft tissue swelling over the medial malleolus. IMPRESSION: 1. Bimalleolar fracture. 2. Soft tissue swelling over the medial malleolus and widening of the medial mortise is consistent with ligamentous disruption. 3. Diffuse soft tissue swelling. 4. Gross osteopenia which could be secondary to disuse atrophy. Electronically signed by: Dorian Khan III, MD (11/02/2019 3:33 PM) [id number]
[2019-11-02] MEDS: POLYETHYLENE GLYCOL 3350 17 GM PACKET. PO SCH (16:35)
[2019-11-02] MEDS: PSYLLIUM HUSK (SUGAR FREE) 1 PKT PACKET PO SCH (16:35)
[2019-11-02 19:55] VITALS: BP 127/65
[2019-11-02] MEDS: ATORVASTATIN CALCIUM 20 MG TABLET PO SCH (20:37)
[2019-11-02] MEDS: GABAPENTIN 300 MG CAPSULE. PO SCH (20:37)
[2019-11-02 23:30] VITALS: BP 135/70
[2019-11-03] MEDS: HYDROcodone/APAP 5/325MG 1 TAB TABLET PO PRN ×4 (00:58→20:23)
[2019-11-03 03:18] VITALS: BP 151/84
[2019-11-03] MEDS: diazePAM 2 MG TABLET PO PRN ×3 (05:05→23:01)
[2019-11-03] MEDS: PANTOPRAZOLE 40 MG TABLET.DR. PO SCH (05:05)
[2019-11-03] MEDS: SUCRALFATE 1 GM TABLET. PO SCH ×2 (05:06→15:46)
[2019-11-03 07:00] VITALS: BP 113/57
[2019-11-03] MEDS: INSULIN LISPRO 300 UNITS/3 ML VIAL. SQ SCH ×4 (07:30→20:23)
--- NOTE | 2019-11-03 08:12 | PDOC ---
PROGRESS NOTES Chief Complaint Chief Complaint A/P: Chest pain - negative cardiac enzymes, EKG. This seems like it may be GI in etiology Coronary artery disease, status post [place] with stent deployment previously. Cont meds Type 2 diabetes - will place on sliding scale, A1c 10.2. She is refusing a lot of insulin therapy, heavily counseled today Hypertension - cont meds Hyperlipidemia - cont meds Gastroesophageal reflux disease - cont meds. Likely with need for esophageal dilation Generalized weakness - will have PT to evaluated Right heel wound - seems to be a bedsore. Difficulty walking - right heel ulcer and left ankle in brace Left bimalleolar fracture - patient notes she was seen recently by orthopedic surgeon. She is still nonweightbearing and mostly bed bound, wheelchair bound. Morbid obesity - counseled on diet, exercise. Insight seems very poor Elevated alkaline phosphatase - will d/w GI, was just evaluated 5 weeks ago. MRCP grossly abnormal Elevated CA19-9 - recommend EUS per GI, can be scheduled outpatient Behavioral disorder - her self care is poor, thoughts seem disorganized. 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 Is on depakote likely for treatment of this. Chronic dysphagia, GERD - Schatkzi's ring dilated, h/o esophageal dysmotility on past imaging - on PPI - not interested in changing her diet History of Present Illness History of Present Illness Ms Del Rosario is a 59yo F w/ PMHx CAD s/p stent, HTN, HLD, DM2, GERD, left ankle fracture who presented from nursing facility secondary to chest/ epigastric pain. Patient reports pain has been present for the last 2 days and states she has not been allowed to eat for 3 days. Pain is located in her central epigastric region. Pain seems to radiate up the the left chest. No dizziness, diaphoresis, shortness of breath, or nausea/vomiting. Has been requesting GI cocktail, which she reports improves pain. She reported was living in her car for the past 2 years and slipped and fell getting out of her car, fracturing her left ankle, states she went under the car, was in [facility] for the past 18 weeks, apparently. Chest x-ray with mild pulmonary edema. Labs are unremarkable for acute changes. Liver enzymes are chronically elevated with Alkaline phosphatase much higher. Ejection fraction from cardiac workup last month was 60%. . Influenza are negative. Strep is negative. After d/w ED and [facility], apparently she signed out AMA from [facility] and had called 911 and EMS transported her here as she was unable to walk out of the facility. On further ROS her story is inconsistent in many parts and does change. Difficult to follow. She displays some splitting with her remarks about previous physicians. She adamantly denies any mental health diagnoses. 10/31: She is refusing multiple therapies today. Refusing to have her LLE x-rayed. MRCP results reviewed from 10/30 showing pancreatic atropy and biliary tree dilation, right renal atrophy. EGD - Schatzki ring dilated 11/01: She had some nausea after EGD. xray of her ankle - Bimalleolar fracture, Soft tissue swelling over the medial malleolus and widening of the medial mortise is consistent with ligamentous disruption, soft tissue swelling and Gross osteopenia which could be secondary to disuse atrophy. Tells me she needs her keys to her car, thinks staff still has them in [place]. Heel wound improved. Chest pain resolved. Tearful today after reviewing CA19-9 labs. She is still constipated. Advised A1c is 10.2. She is asking for help with $3000 to have her in [place] the [place]. I have offered to call him to discuss her findings. GI recs: Previously recommended ERCP/brushings or EUS/FNA (not available here) - will review w/ Dr. Garcia. Continue PPI, treat constipation more aggressively. Vitals Vitals Vital Signs Date Time Temp Pulse Resp B/P (MAP) Pulse Ox O2 Delivery O2 Flow Rate FiO2 11/03/19 06:05 14 Room Air 11/03/19 03:18 98.0 71 151/84 (106) 97 98.0 Physical Exam General: Alert, Cooperative, No acute distress Abdomen: Normal bowel sounds, Soft, No tenderness, No hepatosplenomegaly, No masses Extremities: No clubbing, No cyanosis, No edema, Normal pulses Skin: Other (Right heel abrasion with "" wound cover) Assessment and Plan Assessmemt and Plan Problems Medical Problems: (1) Failure to thrive Status: Acute Comment Review of Relevant I have reviewed the following items octavio (where applicable) has been applied. Labs Laboratory Tests Test 11/01/19 15:55 CA 19-9 Antigen 479 U/mL (0-35) Microbiology 10/30/19 Urine Culture - Final, Complete 10/30/19 Urine Culture Result 1 (LAURE) - Final, Complete 10/30/19 Nose/Throat Culture - Final, Complete 10/30/19 - Final, Complete Medications Current Medications Ondansetron HCl (Zofran) 4 mg PRN Q8HRS PRN IV NAUSEA/VOMITING; Start 10/30/19 at 21:00; Stop 10/30/19 at 23:49; Status DC Ondansetron HCl (Zofran) 4 mg PRN Q6HRS PRN IV NAUSEA/VOMITING 1ST CHOICE Last administered on 11/01/19at 15:51; Start 10/30/19 at 23:45 Aspirin (Children'S Aspirin) 81 mg DAILY PO Last administered on 11/02/19at 09:12; Start 10/31/19 at 09:00 Atorvastatin Calcium (Lipitor) 20 mg HS PO Last administered on 11/02/19at 20:37; Start 10/31/19 at 21:00 Divalproex Sodium (Depakote) 500 mg DAILY PO ; Start 10/31/19 at 09:00 Gabapentin (Neurontin) 300 mg HS PO Last administered on 11/02/19at 20:37; Start 10/31/19 at 21:00 Isosorbide Mononitrate (Imdur) 30 mg DAILY PO Last administered on 11/02/19at 09:12; Start 10/31/19 at 09:00 Loperamide HCl (Imodium) 2 mg PRN Q6HRS PRN PO DIARRHEA; Start 10/30/19 at 23:45 Sucralfate (Carafate) 1 gm QIDACHS PO Last administered on 10/31/19at 20:29; Start 10/31/19 at 07:30; Stop 11/01/19 at 13:30; Status DC Pantoprazole Sodium (Protonix) 40 mg DAILYAC PO Last administered on 11/03/19at 05:05; Start 10/31/19 at 07:30 Acetaminophen (Tylenol) 650 mg PRN Q6HRS PRN PO MILD pain/temp; Start 10/30/19 at 23:45 Enoxaparin Sodium (Lovenox 40mg Syringe) 40 mg Q24H SQ Last administered on 10/31/19at 02:09; Start 10/31/19 at 00:00 Insulin Human Lispro (HumaLOG) 0-5 UNITS TIDACHC SQ ; Start 10/31/19 at 07:30 Dextrose (Dextrose 50%-Water Syringe) 12.5 gm PRN Q15MIN PRN IV SEE COMMENTS; Start 10/31/19 at 00:00 Acetaminophen/ Hydrocodone Bitart (Lortab 5/325) 2 tab PRN Q4HRS PRN PO SEVERE PAIN 7-10 Last administered on 11/03/19at 05:05; Start 10/31/19 at 02:00 Morphine Sulfate (Ms Contin) 30 mg BID PO Last administered on 11/02/19at 20:37; Start 10/31/19 at 02:00 Multi-Ingredient Mouthwash/Gargle (Gi Cocktail) 20 ml PRN QID PRN PO c hest/epigastric pain; Start 10/31/19 at 15:45 Diazepam (Valium) 5 mg 1X ONCE PO Last administered on 10/31/19at 20:30; Start 10/31/19 at 18:30; Stop 10/31/19 at 18:31; Status DC Sucralfate (Carafate) 1 gm BIDAC PO Last administered on 11/01/19 15:51; Start 11/01/19 at 16:30 Diazepam (Valium) 2 mg PRN TID PRN PO ANXIETY Last administered on 11/03/19 05:05; Start 11/01/19 at 16:30 Polyethylene Glycol (miraLAX PACKET) 17 gm DAILY PO Last administered on 11/02/19 16:35; Start 11/02/19 at 16:30 Psyllium Hydrophilic Mucilloid (Metamucil Fiber Packet) 1 pkt DAILY PO Last administered on 11/02/19 16:35; Start 11/02/19 at 16:30 Active Scripts Active Lantus Solostar (Insulin Glargine,Hum.rec.anlog) 100 Unit/1 Ml Insuln.pen 10 Unit SQ QHS 30 Days Humalog (Insulin Lispro) 100 Unit/1 Ml Insuln.pen 0 Units SQ TIDACHC 30 Days Diazepam 2 Mg Tablet 2 Mg PO PRN TID PRN 6 Days Hydrocodone-Acetamin 5-325 mg (Hydrocodone/Acetaminophen) 1 Each Tablet 1 Tab PO PRN Q6HRS PRN 6 Days Carafate (Sucralfate) 1 Gm Tablet 1 Tab PO QID 30 Days Protonix (Pantoprazole Sodium) 20 Mg Tablet.dr 2 Tab PO DAILY 30 Days Reported Multivitamins (Multivitamin) 1 Each Tablet 1 Tab PO DAILY Melatonin 3 Mg Tablet 3 Tab PO QHS Isosorbide Mononitrate Er (Isosorbide Mononitrate) 30 Mg Tab.er.24h 1 Tab PO DAILY Imodium A-D (Loperamide HCl) 2 Mg Capsule 2 Mg PO Q6HRS PRN Gabapentin (Gabapentin) 300 Mg Capsule 300 Mg PO HS Flonase Allergy Relief (Fluticasone Propionate) 9.9 Ml [place].susp 2 Sprays NS DAILY Depakote (Divalproex Sodium) 500 Mg Tablet.dr 500 Mg PO DAILY Calcium 600 + Vit D Tablet (Calcium Carbonate/Vitamin D3) 1 Each Tablet 1 Each PO BID Atorvastatin Calcium 20 Mg Tablet 20 Mg PO HS Aspirin 81 Mg Tab.chew 1 Tab PO DAILY Vitals/I & O Vital Sign - Last 24 Hours 11/02/19 11/02/19 11/02/19 11/02/19 09:00 09:12 09:12 11:00 Temp 98.3 98.3 Pulse 65 63 Resp 18 B/P (MAP) 125/71 104/52 (69) Pulse Ox 99 O2 Delivery Room Air Room Air Room Air 11/02/19 11/02/19 11/02/19 11/02/19 12:26 13:12 13:12 15:00 Temp 97.8 97.8 Pulse 84 Resp 18 B/P (MAP) 126/66 (86) Pulse Ox 93 O2 Delivery Room Air Room Air Room Air Room Air 11/02/19 11/02/19 11/02/19 11/02/19 16:33 17:49 19:55 20:00 Temp 97.8 97.8 Pulse 77 Resp 18 B/P (MAP) 127/65 (85) Pulse Ox 96 O2 Delivery Room Air Room Air Room Air Room Air 11/02/19 11/02/19 11/02/19 11/02/19 20:37 20:38 21:38 23:30 Temp 97.7 97.7 Pulse 66 Resp 16 16 14 18 B/P (MAP) 135/70 (91) Pulse Ox 96 94 O2 Delivery Room Air Room Air Room Air Room Air 11/03/19 11/03/19 11/03/19 11/03/19 00:58 00:58 02:00 03:18 Temp 98.0 98.0 Pulse 71 Resp 16 16 14 20 B/P (MAP) 151/84 (106) Pulse Ox 97 O2 Delivery Room Air Room Air Room Air Room Air 11/03/19 11/03/19 05:05 06:05 Resp 16 14 O2 Delivery Room Air Room Air Intake and Output 11/02/19 11/02/19 11/03/19 15:00 23:00 07:00 Intake Total 118 ml 1250 ml Balance 118 ml 1250 ml Hemodynamically unstable?: No Is patient in severe pain?: No Is NPO status required?: No ULISES GOODMAN MD Nov 03, 2019 08:11
[2019-11-03] MEDS: MORPHINE ER 30 MG TABLET.ER PO SCH ×2 (08:47→20:21)
[2019-11-03] MEDS: ASPIRIN CHEWABLE 81 MG TABLET. PO SCH (08:47)
[2019-11-03] MEDS: DIVALPROEX DELAYED RELEASE 500 MG TABLET.DR. PO SCH (08:47)
[2019-11-03] MEDS: ISOSORBIDE MONONITRATE ER 30 MG TAB.ER.24H PO SCH (08:47)
[2019-11-03] MEDS: POLYETHYLENE GLYCOL 3350 17 GM PACKET. PO SCH (08:50)
[2019-11-03] MEDS: PSYLLIUM HUSK (SUGAR FREE) 1 PKT PACKET PO SCH (08:50)
--- NOTE | 2019-11-03 09:09 | PDOC ---
Subjective: Subjective: Some foods get stuck but she likes them so doesn't want to avoid eating them. Hard stools. Ongoing abd pain. Objective: Vital Signs: Vital Signs Date Time Temp Pulse Resp B/P (MAP) Pulse Ox O2 Delivery O2 Flow Rate FiO2 11/03/19 08:47 97 Room Air 11/03/19 08:47 71 151/84 11/03/19 07:00 97.9 18 97.9 Imaging: Ankle X-Ray 11/01 IMPRESSION: 1. Bimalleolar fracture. 2. Soft tissue swelling over the medial malleolus and widening of the medial mortise is consistent with ligamentous disruption. 3. Diffuse soft tissue swelling. 4. Gross osteopenia which could be secondary to disuse atrophy. PE: GEN: NAD, eating breakfast, sitting up in bed LUNGS: CTAB HEART: RRR ABD: soft, non-specifically tender NEURO/PSYCH: A & O 3 - pleasant mood today A/P: Chronic pain Chronic dysphagia, GERD - Schatkzi's ring dilated, h/o esophageal dysmotility on past imaging - on PPI - not interested in changing her diet Elevated LFTs, abnormal MRCP (?IPMN), elevated CA19-9 Constipation Psych issues, non-compliance -- Previously recommended ERCP/brushings or EUS/FNA (not available here) - will review w/ Dr. Garcia. Continue PPI, treat constipation more aggressively. Hemodynamically unstable?: No Is patient in severe pain?: No Is NPO status required?: No ZACHARIAH VENCES Nov 03, 2019 09:08
[2019-11-03] MEDS ORDERED: POLYETHYLENE GLYCOL 3350 17 GM PACKET. PO PRN (09:15)
[2019-11-03] MEDS ORDERED: BISACODYL 5 MG TABLET.DR. PO PRN (09:15)
[2019-11-03] MEDS ORDERED: POLYETHYLENE GLYCOL 3350 17 GM PACKET. PO SCH (09:30)
[2019-11-03 11:00] VITALS: BP 131/70
--- NOTE | 2019-11-03 11:48 | NUR ---
SW following. Discussed with RN, Anastacio Tiwari declined to take pt. Recommended SW try [facility] and [facility]. special events planner, Merlyn will fax referral to said facilities. SW will continue to follow.
--- NOTE | 2019-11-03 13:26 | PDOC3 ---
Discharge Summary Visit Information Date of Admission: Oct 30, 2019 Date of Discharge: Nov 03, 2019 Admitting Diagnosis: Chest pain Final Diagnosis Problems Medical Problems: (1) Failure to thrive Status: Acute Brief Hospital Course Allergies Allergies Coded Allergies Type Severity Reaction Last Updated Verified strawberry Allergy Severe Anaphylaxis 11/01/19 Yes ibuprofen Allergy Intermediate Hives 11/01/19 Yes Vital Signs Vital Signs Date Time Temp Pulse Resp B/P (MAP) Pulse Ox O2 Delivery O2 Flow Rate FiO2 11/03/19 11:00 97.8 66 18 131/70 (90) 98 Room Air 97.8 Lab Results Laboratory Tests Test 11/01/19 15:55 CA 19-9 Antigen 479 U/mL (0-35) Brief Hospital Course Ms Del Rosario is a 59yo F w/ PMHx CAD s/p stent, HTN, HLD, DM2, GERD, left ankle fracture who presented from nursing facility secondary to chest/ epigastric pain. Patient reports pain has been present for the last 2 days and states she has not been allowed to eat for 3 days. Pain is located in her central epigastric region. Pain seems to radiate up the the left chest. No dizziness, diaphoresis, shortness of breath, or nausea/vomiting. Has been requesting GI cocktail, which she reports improves pain. She reported was living in her car for the past 2 years and slipped and fell getting out of her car, fracturing her left ankle, states she went under the car, was in [facility] for the past 18 weeks, apparently. Chest x-ray with mild pulmonary edema. Labs are unremarkable for acute changes. Liver enzymes are chronically elevated with Alkaline phosphatase much higher. Ejection fraction from cardiac workup last month was 60%. . Influenza are negative. Strep is negative. After d/w ED and [facility], apparently she signed out AMA from [facility] and had called 911 and EMS transported her here as she was unable to walk out of the facility. On further ROS her story is inconsistent in many parts and does change. Difficult to follow. She displays some splitting with her remarks about previous physicians. She adamantly denies any mental health diagnoses. 10/31: She is refusing multiple therapies today. Refusing to have her LLE x-rayed. MRCP results reviewed from 10/30 showing pancreatic atropy and biliary tree dilation, right renal atrophy. EGD - Schatzki ring dilated 11/01: She had some nausea after EGD. xray of her ankle - Bimalleolar fracture, Soft tissue swelling over the medial malleolus and widening of the medial mortise is consistent with ligamentous disruption, soft tissue swelling and Gross osteopenia which could be secondary to disuse atrophy. Tells me she needs her keys to her car, thinks staff still has them in [place]. Heel wound improved. Chest pain resolved. Tearful today after reviewing CA19-9 labs. She is still constipated. Advised A1c is 10.2. She is asking for help with $3000 to have her in [place] the [place]. I have offered to call him to discuss her findings. Problem List: Chest pain - negative cardiac enzymes, EKG. This seems like it may be GI in etiology Coronary artery disease, status post [place] with stent deployment previously. Cont meds Type 2 diabetes - will place on sliding scale, A1c 10.2. She is refusing a lot of insulin therapy, heavily counseled today Hypertension - cont meds Hyperlipidemia - cont meds Gastroesophageal reflux disease - cont meds. Likely with need for esophageal dilation Generalized weakness - will have PT to evaluated Right heel wound - seems to be a bedsore. Difficulty walking - right heel ulcer and left ankle in brace Left bimalleolar fracture - patient notes she was seen recently by orthopedic surgeon. She is still nonweightbearing and mostly bed bound, wheelchair bound. Morbid obesity - counseled on diet, exercise. Insight seems very poor Elevated alkaline phosphatase - will d/w GI, was just evaluated 5 weeks ago. MRCP grossly abnormal Elevated CA19-9 - recommend EUS per GI, can be scheduled outpatient Behavioral disorder - her self care is poor, thoughts seem disorganized. A psychotic disorder with concomitant borderline personality seem to be present. Is on depakote likely for treatment of this. Chronic dysphagia, GERD - Schatkzi's ring dilated, h/o esophageal dysmotility on past imaging - on PPI - not interested in changing her diet GI recs: Previously recommended ERCP/brushings or EUS/FNA (not available here) - will review w/ Dr. Garcia. Continue PPI, treat constipation more aggressively. Greater than 30 minutes spent on d/c Discharge Information Condition at Discharge: Improved Follow Up: Weeks (1) Disposition/Orders: D/C to Another Facility Scheduled Aspirin (Aspirin) 81 Mg Tab.chew, 1 TAB PO DAILY for antiplatelet, #30 Ref 3 (Reported) Entered as Reported by: YUKI WALKER on 09/27/19135 Last Action: Continued on 10/30/192349 by ULISES GOODMAN MD Atorvastatin Calcium (Atorvastatin Calcium) 20 Mg Tablet, 20 MG PO HS for FOR CHOLESTEROL, #30 Ref 0 (Reported) Entered as Reported by: YUKI WALKER on 09/27/19135 Last Action: Continued on 10/30/192349 by ULISES GOODMAN MD Calcium Carbonate/Vitamin D3 (Calcium 600 + Vit D Tablet) 1 Each Tablet, 1 EACH PO BID for supplement, (Reported) Entered as Reported by: YUKI WALKER on 09/27/19136 Divalproex Sodium (Depakote) 500 Mg Tablet.dr, 500 MG PO DAILY for mood disorder, (Reported) Entered as Reported by: YUKI WALKER on 09/27/19136 Last Action: Continued on 10/30/192349 by ULISES GOODMAN MD Fluticasone Propionate (Flonase Allergy Relief) 9.9 Ml [place].susp, 2 SPRAYS NS DAILY for allergy, (Reported) Entered as Reported by: YUKI WALKER on 09/27/19136 Gabapentin (Gabapentin ) 300 Mg Capsule, 300 MG PO HS for NEUROGENIC PAIN, (Reported) Entered as Reported by: YUKI WALKER on 09/27/19136 Last Action: Continued on 10/30/192349 by ULISES GOODMAN MD Insulin Glargine,Hum.rec.anlog (Lantus Solostar) 100 Unit/1 Ml Insuln.pen, 10 UNIT SQ QHS for DM2 for 30 Days, #15 Ref 3 Prescribed by: ULISES GOODMAN MD on 11/02/19 1249 Insulin Lispro (Humalog) 100 Unit/1 Ml Insuln.pen, 0 UNITS SQ TIDACHC for DM2 for 30 Days, #30 Prescribed by: ULISES GOODMAN MD on 11/02/19 1249 Isosorbide Mononitrate (Isosorbide Mononitrate Er) 30 Mg Tab.er.24h, 1 TAB PO DAILY for chest pain, #30 Ref 5 (Reported) Entered as Reported by: YUKI WALKER on 09/27/19136 Last Action: Continued on 10/30/192349 by ULISES GOODMAN MD Melatonin (Melatonin) 3 Mg Tablet, 3 TAB PO QHS for insomnia, #30 Ref 2 (Reported) Entered as Reported by: YUKI WALKER on 09/27/19136 Multivitamin (Multivitamins) 1 Each Tablet, 1 TAB PO DAILY for supplement, #90 Ref 3 (Reported) Entered as Reported by: YUKI WALKER on 09/27/19136 Pantoprazole Sodium (Protonix) 20 Mg Tablet.dr, 2 TAB PO DAILY for GERD for 30 Days, #60 Prescribed by: HALLE WORLEY on 09/29/191518 Last Action: Converted on 10/30/192349 by ULISES GOODMAN MD Sucralfate (Carafate) 1 Gm Tablet, 1 TAB PO QID for GERD for 30 Days, #120 Ref 0 Prescribed by: HALLE WORLEY on 09/29/191518 Last Action: Continued on 10/30/192349 by ULISES GOODMAN MD Scheduled PRN Diazepam (Diazepam) 2 Mg Tablet, 2 MG PO PRN TID PRN for ANXIETY for 6 Days, #15 Prescribed by: ULISES GOODMAN MD on 11/02/19 1249 Hydrocodone/Acetaminophen (Hydrocodone-Acetamin 5-325 mg) 1 Each Tablet, 1 TAB PO PRN Q6HRS PRN for PAIN for 6 Days, #20 Prescribed by: ULISES GOODMAN MD on 11/02/19 1249 Loperamide HCl (Imodium A-D) 2 Mg Capsule, 2 MG PO Q6HRS PRN for DIARRHEA, (Reported) Entered as Reported by: YUKI WALKER on 09/27/19136 Last Action: Continued on 10/30/192349 by ULISES GOODMAN MD Discontinued Medications Clindamycin Hcl (Clindamycin Hcl) 300 Mg Capsule, 300 MG PO QID for infection, (Reported) Entered as Reported by: YUKI WALKER on 09/27/19136 Diazepam (Diazepam) 10 Mg Tablet, 10 MG PO Q6HRS PRN for ANXIETY, (Reported) Entered as Reported by: YUKI WALKER on 09/27/19136 Last Action: Converted on 11/01/191620 by ULISES GOODMAN MD Fluconazole (Diflucan) 100 Mg Tablet, 1 TAB PO DAILY for CANDIDIASIS for 7 Days, #7 Ref 0 Prescribed by: HALLE WORLEY on 09/29/19 1519 Morphine Sulfate (Morphine Sulfate Er) 30 Mg Tablet.er, 1 TAB PO BID for pain, #60 (Reported) Entered as Reported by: YUKI WALKER on 09/27/19 0137 Hemodynamically unstable?: No Is patient in severe pain?: No Is NPO status required?: No ULISES GOODMAN MD Nov 03, 2019 13:26
[2019-11-03] MEDS ORDERED: LACTULOSE 20 GM/30 ML SOLUTION. PO PRN (13:30)
[2019-11-03] MEDS ORDERED: MAGNESIUM CITRATE 296 ML SOLUTION. PO ONE (13:30)
[2019-11-03] MEDS: ONDANSETRON PF 4 MG/2 ML VIAL. IV PRN (13:36)
[2019-11-03 15:00] VITALS: BP 119/69
[2019-11-03 19:23] VITALS: BP 126/69
[2019-11-03] MEDS: ATORVASTATIN CALCIUM 20 MG TABLET PO SCH (20:20)
[2019-11-03] MEDS: GABAPENTIN 300 MG CAPSULE. PO SCH (20:20)
--- NOTE | 2019-11-03 20:20 | NUR ---
Patient refused fingerstick blood glucose check and scheduled insulin administration at this time.
--- NOTE | 2019-11-03 22:00 | NUR ---
Patient upset during hourly rounds reporting, I slid down the side of the bed and hurt my leg. Patient asked which leg and pointed to right knee. Patient asked when the incident occurred and unable to give a clear answer, reporting it occurred both in, the afternoon and an hour ago. Patient continued with story explaining that, I slid down and yelled for help then a man with a badge came in my room and looked at me and walked out. Patient continued with two ladies came in and scooted me to the top of the bed and just left and I havent seen anyone all day. Patient then began to cry stating that she was yelling, Help and no one came to help her when she needed them and when the two ladies did help her all they did was just leave me there with my leg hurting. See, look at my leg and my thumb hurts too. Patient continued to cry, now grabbing her left knee and reporting pain to the site. Patient also stated, My call light doesn't work. Every time I use it, it doesn't light up and no one answers me, patients call light function checked by this nurse and working properly. Patient asked if she fell to floor and patient reports no fall to floor occurred, my knees just bent back and they hurt now. Patient reports bruising and bumps on bilateral knees, no visible bruises noted and no bumps felt on palpation, ice applied to sites. Patient asked to re-tell the events again for verification and again patient unable to verify time incident happened and describes the staff who assisted her as a, blonde lady and an old lady. This nurse asked all cnc machinist 2nd shift staff on floor if anyone had assisted the patient back to bed or heard her crying or yelling for help and all denied. At this time, this nurse is unable to determine exactly what happened or when the incident occurred. Nursing cranberry bog supervisor notified. notified and orders to place heat or ice therapy to BLE received. No other orders rcvd. and MD will reassess in the AM.
[2019-11-03 23:00] VITALS: BP 114/62
--- NOTE | 2019-11-03 23:00 | NUR ---
Patient refused scheduled dose of Lovenox.
[2019-11-03] MEDS: ENOXAPARIN 40 MG/0.4 ML SYRINGE. SQ SCH ×2 (23:01)
[2019-11-04] MEDS: HYDROcodone/APAP 5/325MG 1 TAB TABLET PO PRN ×5 (00:32→22:32)
[2019-11-04 03:00] VITALS: BP 100/49
[2019-11-04 07:00] VITALS: BP 110/66
[2019-11-04] MEDS: INSULIN LISPRO 300 UNITS/3 ML VIAL. SQ SCH ×4 (07:30→21:00)
[2019-11-04] MEDS: ISOSORBIDE MONONITRATE ER 30 MG TAB.ER.24H PO SCH (09:00)
[2019-11-04] MEDS: MORPHINE ER 30 MG TABLET.ER PO SCH ×2 (09:00→21:03)
[2019-11-04] MEDS: PANTOPRAZOLE 40 MG TABLET.DR. PO SCH (09:36)
[2019-11-04] MEDS: diazePAM 2 MG TABLET PO PRN ×2 (09:36→18:38)
[2019-11-04] MEDS: ASPIRIN CHEWABLE 81 MG TABLET. PO SCH (09:37)
[2019-11-04] MEDS: SUCRALFATE 1 GM TABLET. PO SCH ×2 (09:37→16:30)
[2019-11-04] MEDS: DIVALPROEX DELAYED RELEASE 500 MG TABLET.DR. PO SCH (09:37)
[2019-11-04] MEDS: POLYETHYLENE GLYCOL 3350 17 GM PACKET. PO SCH (09:38)
[2019-11-04] MEDS: PSYLLIUM HUSK (SUGAR FREE) 1 PKT PACKET PO SCH (09:38)
[2019-11-04] MEDS: ONDANSETRON PF 4 MG/2 ML VIAL. IV PRN (09:54)
[2019-11-04 11:00] VITALS: BP 104/59
[2019-11-04 15:00] VITALS: BP 127/72
--- NOTE | 2019-11-04 15:12 | PDOC ---
PROGRESS NOTES Chief Complaint Chief Complaint A/P: Chest pain - negative cardiac enzymes, EKG. This seems like it may be GI in etiology Coronary artery disease, status post [place] with stent deployment previously. Cont meds Type 2 diabetes - will place on sliding scale, A1c 10.2. She is refusing a lot of insulin therapy, heavily counseled today Hypertension - cont meds Hyperlipidemia - cont meds Gastroesophageal reflux disease - cont meds. Likely with need for esophageal dilation Generalized weakness - will have PT to evaluated Right heel wound - seems to be a bedsore. Difficulty walking - right heel ulcer and left ankle in brace Left bimalleolar fracture - patient notes she was seen recently by orthopedic surgeon. She is still nonweightbearing and mostly bed bound, wheelchair bound. Morbid obesity - counseled on diet, exercise. Insight seems very poor Elevated alkaline phosphatase - will d/w GI, was just evaluated 5 weeks ago. MRCP grossly abnormal Elevated CA19-9 - recommend EUS per GI, can be scheduled outpatient Behavioral disorder - her self care is poor, thoughts seem disorganized. 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 Is on depakote likely for treatment of this. Chronic dysphagia, GERD - Schatkzi's ring dilated, h/o esophageal dysmotility on past imaging - on PPI - not interested in changing her diet History of Present Illness History of Present Illness Ms Del Rosario is a 59yo F w/ PMHx CAD s/p stent, HTN, HLD, DM2, GERD, left ankle fracture who presented from nursing facility secondary to chest/ epigastric pain. Patient reports pain has been present for the last 2 days and states she has not been allowed to eat for 3 days. Pain is located in her central epigastric region. Pain seems to radiate up the the left chest. No dizziness, diaphoresis, shortness of breath, or nausea/vomiting. Has been requesting GI cocktail, which she reports improves pain. She reported was living in her car for the past 2 years and slipped and fell getting out of her car, fracturing her left ankle, states she went under the car, was in [facility] for the past 18 weeks, apparently. Chest x-ray with mild pulmonary edema. Labs are unremarkable for acute changes. Liver enzymes are chronically elevated with Alkaline phosphatase much higher. Ejection fraction from cardiac workup last month was 60%. . Influenza are negative. Strep is negative. After d/w ED and [facility], apparently she signed out AMA from [facility] and had called 911 and EMS transported her here as she was unable to walk out of the facility. On further ROS her story is inconsistent in many parts and does change. Difficult to follow. She displays some splitting with her remarks about previous physicians. She adamantly denies any mental health diagnoses. 10/31: She is refusing multiple therapies today. Refusing to have her LLE x-rayed. MRCP results reviewed from 10/30 showing pancreatic atropy and biliary tree dilation, right renal atrophy. EGD - Schatzki ring dilated 11/01: She had some nausea after EGD. xray of her ankle - Bimalleolar fracture, Soft tissue swelling over the medial malleolus and widening of the medial mortise is consistent with ligamentous disruption, soft tissue swelling and Gross osteopenia which could be secondary to disuse atrophy. Tells me she needs her keys to her car, thinks staff still has them in [place]. Heel wound improved. Chest pain resolved. 11/02: Tearful today after reviewing CA19-9 labs. She is still constipated. Advised A1c is 10.2. She is asking for help with $3000 to have her in [place] the [place]. I have offered to call him to discuss her findings. Overnight slid off the side of the bed onto her knees while trying to get onto the commode. She is having a BM currently, tells me she has spent over an hour on the commode today. Refused lactulose and mag citrate. GI recs: Previously recommended ERCP/brushings or EUS/FNA (not available here) - will review w/ Dr. Garcia. Continue PPI, treat constipation more aggressively. Vitals Vitals Vital Signs Date Time Temp Pulse Resp B/P (MAP) Pulse Ox O2 Delivery O2 Flow Rate FiO2 11/04/19 11:16 96 Room Air 11/04/19 11:00 97.6 81 18 104/59 (74) 97.6 Physical Exam General: Alert, Cooperative, No acute distress Abdomen: Normal bowel sounds, Soft, No tenderness, No hepatosplenomegaly, No masses Extremities: No clubbing, No cyanosis, No edema, Normal pulses Skin: Other (Right heel abrasion with "" wound cover) Assessment and Plan Assessmemt and Plan Problems Medical Problems: (1) Failure to thrive Status: Acute Comment Review of Relevant I have reviewed the following items octavio (where applicable) has been applied. Labs Microbiology 10/30/19 Urine Culture - Final, Complete 10/30/19 Urine Culture Result 1 (LAURE) - Final, Complete 10/30/19 Nose/Throat Culture - Final, Complete 10/30/19 - Final, Complete Medications Current Medications Ondansetron HCl (Zofran) 4 mg PRN Q8HRS PRN IV NAUSEA/VOMITING; Start 10/30/19 at 21:00; Stop 10/30/19 at 23:49; Status DC Ondansetron HCl (Zofran) 4 mg PRN Q6HRS PRN IV NAUSEA/VOMITING 1ST CHOICE Last administered on 11/04/19at 09:54; Start 10/30/19 at 23:45 Aspirin (Children'S Aspirin) 81 mg DAILY PO Last administered on 11/04/19at 09:37; Start 10/31/19 at 09:00 Atorvastatin Calcium (Lipitor) 20 mg HS PO Last administered on 11/03/19 20:20; Start 10/31/19 at 21:00 Divalproex Sodium (Depakote) 500 mg DAILY PO Last administered on 11/04/19 09:37; Start 10/31/19 at 09:00 Gabapentin (Neurontin) 300 mg HS PO Last administered on 11/03/19 20:20; Start 10/31/19 at 21:00 Isosorbide Mononitrate (Imdur) 30 mg DAILY PO Last administered on 11/03/19at 08:47; Start 10/31/19 at 09:00 Loperamide HCl (Imodium) 2 mg PRN Q6HRS PRN PO DIARRHEA; Start 10/30/19 at 23:45 Sucralfate (Carafate) 1 gm QIDACHS PO Last administered on 10/31/19at 20:29; Start 10/31/19 at 07:30; Stop 11/01/19 at 13:30; Status DC Pantoprazole Sodium (Protonix) 40 mg DAILYAC PO Last administered on 11/04/19at 09:36; Start 10/31/19 at 07:30 Acetaminophen (Tylenol) 650 mg PRN Q6HRS PRN PO MILD pain/temp; Start 10/30/19 at 23:45 Enoxaparin Sodium (Lovenox 40mg Syringe) 40 mg Q24H SQ Last administered on 10/31/19at 02:09; Start 10/31/19 at 00:00 Insulin Human Lispro (HumaLOG) 0-5 UNITS TIDACHC SQ ; Start 10/31/19 at 07:30 Dextrose (Dextrose 50%-Water Syringe) 12.5 gm PRN Q15MIN PRN IV SEE COMMENTS; Start 10/31/19 at 00:00 Acetaminophen/ Hydrocodone Bitart (Lortab 5/325) 2 tab PRN Q4HRS PRN PO SEVERE PAIN 7-10 Last administered on 11/04/19at 11:16; Start 10/31/19 at 02:00 Morphine Sulfate (Ms Contin) 30 mg BID PO Last administered on 11/04/19at 09:00; Start 10/31/19 at 02:00 Multi-Ingredient Mouthwash/Gargle (Gi Cocktail) 20 ml PRN QID PRN PO chest/epigastric pain; Start 10/31/19 at 15:45 Diazepam (Valium) 5 mg 1X ONCE PO Last administered on 10/31/19 20:30; Start 10/31/19 at 18:30; Stop 10/31/19 at 18:31; Status DC Sucralfate (Carafate) 1 gm BIDAC PO Last administered on 11/04/19at 09:37; Start 11/01/19 at 16:30 Diazepam (Valium) 2 mg PRN TID PRN PO ANXIETY Last administered on 11/04/19at 09:36; Start 11/01/19 at 16:30 Polyethylene Glycol (miraLAX PACKET) 17 gm DAILY PO Last administered on 11/04/19 at 09:38; Start 11/02/19 at 16:30 Psyllium Hydrophilic Mucilloid (Metamucil Fiber Packet) 1 pkt DAILY PO Last administered on 11/04/19at 09:38; Start 11/02/19 at 16:30 Polyethylene Glycol (miraLAX PACKET) 17 gm DAILY PO ; Start 11/03/19 at 09:30; Stop 11/03/19 at 11:47; Status DC Polyethylene Glycol (miraLAX PACKET) 17 gm PRN DAILY PRN PO CONSTIPATION 1ST CHOICE; Start 11/03/19 at 09:15 Bisacodyl (Dulcolax Tab) 5 mg PRN DAILY PRN PO constipation 2nd choice; Start 11/03/19 at 09:15 Magnesium Citrate (Citroma) 296 ml 1X ONCE PO Last administered on 11/03/19at 13:37; Start 11/03/19 at 13:30; Stop 11/03/19 at 13:31; Status DC Lactulose (Lactulose) 20 gm PRN DAILY PRN PO CONSTIPATION; Start 11/03/19 at 13:30 Active Scripts Active Lantus Solostar (Insulin Glargine,Hum.rec.anlog) 100 Unit/1 Ml Insuln.pen 10 Unit SQ QHS 30 Days Humalog (Insulin Lispro) 100 Unit/1 Ml Insuln.pen 0 Units SQ TIDACHC 30 Days Diazepam 2 Mg Tablet 2 Mg PO PRN TID PRN 6 Days Hydrocodone-Acetamin 5-325 mg (Hydrocodone/Acetaminophen) 1 Each Tablet 1 Tab PO PRN Q6HRS PRN 6 Days Carafate (Sucralfate) 1 Gm Tablet 1 Tab PO QID 30 Days Protonix (Pantoprazole Sodium) 20 Mg Tablet.dr 2 Tab PO DAILY 30 Days Reported Multivitamins (Multivitamin) 1 Each Tablet 1 Tab PO DAILY Melatonin 3 Mg Tablet 3 Tab PO QHS Isosorbide Mononitrate Er (Isosorbide Mononitrate) 30 Mg Tab.er.24h 1 Tab PO DAILY Imodium A-D (Loperamide HCl) 2 Mg Capsule 2 Mg PO Q6HRS PRN Gabapentin (Gabapentin) 300 Mg Capsule 300 Mg PO HS Flonase Allergy Relief (Fluticasone Propionate) 9.9 Ml [place].susp 2 Sprays NS DAILY Depakote (Divalproex Sodium) 500 Mg Tablet.dr 500 Mg PO DAILY Calcium 600 + Vit D Tablet (Calcium Carbonate/Vitamin D3) 1 Each Tablet 1 Each PO BID Atorvastatin Calcium 20 Mg Tablet 20 Mg PO HS Aspirin 81 Mg Tab.chew 1 Tab PO DAILY Vitals/I & O Vital Sign - Last 24 Hours 11/03/19 11/03/19 11/03/19 11/03/19 19:23 20:00 20:21 20:23 Temp 97.9 97.9 Pulse 78 Resp 18 18 16 B/P (MAP) 126/69 (88) Pulse Ox 96 96 O2 Delivery Room Air Room Air Room Air Room Air 11/03/19 11/03/19 11/04/19 11/04/19 21:25 23:00 00:30 00:32 Temp 98.0 98.0 Pulse 70 Resp 16 18 14 16 B/P (MAP) 114/62 (79) Pulse Ox 95 O2 Delivery Room Air Room Air Room Air Room Air 11/04/19 11/04/19 11/04/19 11/04/19 01:35 03:00 04:51 06:25 Temp 97.9 97.9 Pulse 71 Resp 16 18 16 16 B/P (MAP) 100/49 (66) Pulse Ox 97 97 O2 Delivery Room Air Room Air Room Air Room Air 11/04/19 11/04/19 11/04/19 11/04/19 07:00 09:00 09:00 11:00 Temp 98.4 97.6 98.4 97.6 Pulse 74 74 81 Resp 18 18 B/P (MAP) 110/66 (81) 110/66 104/59 (74) Pulse Ox 95 95 96 O2 Delivery Room Air Room Air Room Air 11/04/19 11:16 Pulse Ox 96 O2 Delivery Room Air Intake and Output 11/03/19 11/03/19 11/04/19 15:00 23:00 07:00 Intake Total 950 ml Output Total 800 ml Balance 150 ml Hemodynamically unstable?: No Is patient in severe pain?: No Is NPO status required?: No ULISES GOODMAN MD Nov 04, 2019 15:12
[2019-11-04] MEDS: LACTULOSE 20 GM/30 ML SOLUTION. PO SCH ×2 (17:26→21:02)
[2019-11-04 19:00] VITALS: BP 101/54
[2019-11-04] MEDS: GABAPENTIN 300 MG CAPSULE. PO SCH (21:02)
[2019-11-04] MEDS: ATORVASTATIN CALCIUM 20 MG TABLET PO SCH (21:03)
[2019-11-04 23:00] VITALS: BP 107/65
[2019-11-05] MEDS: ENOXAPARIN 40 MG/0.4 ML SYRINGE. SQ SCH
[2019-11-05] MEDS: HYDROcodone/APAP 5/325MG 1 TAB TABLET PO PRN ×3 (06:20→17:04)
[2019-11-05] MEDS: diazePAM 2 MG TABLET PO PRN ×2 (06:20→17:03)
[2019-11-05 07:00] VITALS: BP 123/77
[2019-11-05] MEDS: SUCRALFATE 1 GM TABLET. PO SCH ×2 (07:30→14:57)
[2019-11-05] MEDS: INSULIN LISPRO 300 UNITS/3 ML VIAL. SQ SCH ×4 (07:30→21:00)
[2019-11-05] MEDS: MORPHINE ER 30 MG TABLET.ER PO SCH (08:04)
[2019-11-05] MEDS: PANTOPRAZOLE 40 MG TABLET.DR. PO SCH (08:04)
[2019-11-05] MEDS: DIVALPROEX DELAYED RELEASE 500 MG TABLET.DR. PO SCH ×2 (08:05→08:09)
[2019-11-05] MEDS: ASPIRIN CHEWABLE 81 MG TABLET. PO SCH (08:05)
[2019-11-05] MEDS: LACTULOSE 20 GM/30 ML SOLUTION. PO SCH ×2 (08:09→21:00)
[2019-11-05] MEDS: ISOSORBIDE MONONITRATE ER 30 MG TAB.ER.24H PO SCH (08:09)
[2019-11-05] MEDS: PSYLLIUM HUSK (SUGAR FREE) 1 PKT PACKET PO SCH (08:10)
[2019-11-05] MEDS: POLYETHYLENE GLYCOL 3350 17 GM PACKET. PO SCH (08:10)
--- NOTE | 2019-11-05 09:17 | PDOC ---
PROGRESS NOTES Chief Complaint Chief Complaint A/P: Chest pain - negative cardiac enzymes, EKG. This seems like it may be GI in etiology Coronary artery disease, status post [place] with stent deployment previously. Cont meds Type 2 diabetes - will place on sliding scale, A1c 10.2. She is refusing a lot of insulin therapy, heavily counseled today Hypertension - cont meds Hyperlipidemia - cont meds Gastroesophageal reflux disease - cont meds. Likely with need for esophageal dilation Generalized weakness - will have PT to evaluated Right heel wound - seems to be a bedsore. Difficulty walking - right heel ulcer and left ankle in brace Left bimalleolar fracture - patient notes she was seen recently by orthopedic surgeon. She is still nonweightbearing and mostly bed bound, wheelchair bound. Morbid obesity - counseled on diet, exercise. Insight seems very poor Elevated alkaline phosphatase - will d/w GI, was just evaluated 5 weeks ago. MRCP grossly abnormal Elevated CA19-9 - recommend EUS per GI, can be scheduled outpatient Behavioral disorder - her self care is poor, thoughts seem disorganized. 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 Is on depakote likely for treatment of this. Chronic dysphagia, GERD - Schatkzi's ring dilated, h/o esophageal dysmotility on past imaging - on PPI - not interested in changing her diet History of Present Illness History of Present Illness Ms Del Rosario is a 59yo F w/ PMHx CAD s/p stent, HTN, HLD, DM2, GERD, left ankle fracture who presented from nursing facility secondary to chest/ epigastric pain. Patient reports pain has been present for the last 2 days and states she has not been allowed to eat for 3 days. Pain is located in her central epigastric region. Pain seems to radiate up the the left chest. No dizziness, diaphoresis, shortness of breath, or nausea/vomiting. Has been requesting GI cocktail, which she reports improves pain. She reported was living in her car for the past 2 years and slipped and fell getting out of her car, fracturing her left ankle, states she went under the car, was in [facility] for the past 18 weeks, apparently. Chest x-ray with mild pulmonary edema. Labs are unremarkable for acute changes. Liver enzymes are chronically elevated with Alkaline phosphatase much higher. Ejection fraction from cardiac workup last month was 60%. . Influenza are negative. Strep is negative. After d/w ED and [facility], apparently she signed out AMA from [facility] and had called 911 and EMS transported her here as she was unable to walk out of the facility. On further ROS her story is inconsistent in many parts and does change. Difficult to follow. She displays some splitting with her remarks about previous physicians. She adamantly denies any mental health diagnoses. 10/31: She is refusing multiple therapies today. Refusing to have her LLE x-rayed. MRCP results reviewed from 10/30 showing pancreatic atropy and biliary tree dilation, right renal atrophy. EGD - Schatzki ring dilated 11/01: She had some nausea after EGD. xray of her ankle - Bimalleolar fracture, Soft tissue swelling over the medial malleolus and widening of the medial mortise is consistent with ligamentous disruption, soft tissue swelling and Gross osteopenia which could be secondary to disuse atrophy. Tells me she needs her keys to her car, thinks staff still has them in [place]. Heel wound improved. Chest pain resolved. 11/02: Tearful today after reviewing CA19-9 labs. She is still constipated. Advised A1c is 10.2. She is asking for help with $3000 to have her in [place] the [place]. I have offered to call him to discuss her findings. 11/03: Overnight slid off the side of the bed onto her knees while trying to get onto the commode. She is having a BM currently, tells me she has spent over an hour on the commode today. Refused lactulose and mag citrate. Overnight refused some therapies. She had a very large bowel movement this morning with great relief. No NVD. No CP or SOB. GI recs: Previously recommended ERCP/brushings or EUS/FNA (not available here) - will review w/ Dr. Garcia. Continue PPI, treat constipation more aggressively. Vitals Vitals Vital Signs Date Time Temp Pulse Resp B/P (MAP) Pulse Ox O2 Delivery O2 Flow Rate FiO2 11/05/19 08:04 92 Room Air 11/05/19 07:00 97.9 75 16 123/77 (92) 97.9 Physical Exam General: Alert, Cooperative, No acute distress Abdomen: Normal bowel sounds, Soft, No tenderness, No hepatosplenomegaly, No masses Extremities: No clubbing, No cyanosis, No edema, Normal pulses Skin: Other (Right heel abrasion with "" wound cover) Assessment and Plan Assessmemt and Plan Problems Medical Problems: (1) Failure to thrive Status: Acute Comment Review of Relevant I have reviewed the following items octavio (where applicable) has been applied. Labs Microbiology 10/30/19 Urine Culture - Final, Complete 10/30/19 Urine Culture Result 1 (LAURE) - Final, Complete 10/30/19 Nose/Throat Culture - Final, Complete 10/30/19 - Final, Complete Medications Current Medications Ondansetron HCl (Zofran) 4 mg PRN Q8HRS PRN IV NAUSEA/VOMITING; Start 10/30/19 at 21:00; Stop 10/30/19 at 23:49; Status DC Ondansetron HCl (Zofran) 4 mg PRN Q6HRS PRN IV NAUSEA/VOMITING 1ST CHOICE Last administered on 11/04/19 09:54; Start 10/30/19 at 23:45 Aspirin (Children'S Aspirin) 81 mg DAILY PO Last administered on 11/05/19at 08:05; Start 10/31/19 at 09:00 Atorvastatin Calcium (Lipitor) 20 mg HS PO Last administered on 11/04/19 21:03; Start 10/31/19 at 21:00 Divalproex Sodium (Depakote) 500 mg DAILY PO Last administered on 11/04/19at 09:37; Start 10/31/19 at 09:00 Gabapentin (Neurontin) 300 mg HS PO Last administered on 11/04/19 21:02; Start 10/31/19 at 21:00 Isosorbide Mononitrate (Imdur) 30 mg DAILY PO Last administered on 11/03/19at 08:47; Start 10/31/19 at 09:00 Loperamide HCl (Imodium) 2 mg PRN Q6HRS PRN PO DIARRHEA; Start 10/30/19 at 23:45 Sucralfate (Carafate) 1 gm QIDACHS PO Last administered on 10/31/19at 20:29; Start 10/31/19 at 07:30; Stop 11/01/19 at 13:30; Status DC Pantoprazole Sodium (Protonix) 40 mg DAILYAC PO Last administered on 3/8/20at 08:04; Start 10/31/19 at 07:30 Acetaminophen (Tylenol) 650 mg PRN Q6HRS PRN PO MILD pain/temp; Start 10/30/19 at 23:45 Enoxaparin Sodium (Lovenox 40mg Syringe) 40 mg Q24H SQ Last administered on 10/31/19 02:09; Start 10/31/19 at 00:00 Insulin Human Lispro (HumaLOG) 0-5 UNITS TIDACHC SQ ; Start 10/31/19 at 07:30 Dextrose (Dextrose 50%-Water Syringe) 12.5 gm PRN Q15MIN PRN IV SEE COMMENTS; Start 10/31/19 at 00:00 Acetaminophen/ Hydrocodone Bitart (Lortab 5/325) 2 tab PRN Q4HRS PRN PO SEVERE PAIN 7-10 Last administered on 11/05/19 06:20; Start 10/31/19 at 02:00 Morphine Sulfate (Ms Contin) 30 mg BID PO Last administered on 11/05/19 08:04; Start 10/31/19 at 02:00 Multi-Ingredient Mouthwash/Gargle (Gi Cocktail) 20 ml PRN QID PRN PO chest/epigastric pain; Start 10/31/19 at 15:45 Diazepam (Valium) 5 mg 1X ONCE PO Last administered on 10/31/19 20:30; Start 10/31/19 at 18:30; Stop 10/31/19 at 18:31; Status DC Sucralfate (Carafate) 1 gm BIDAC PO Last administered on 11/04/19 09:37; Start 11/01/19 at 16:30 Diazepam (Valium) 2 mg PRN TID PRN PO ANXIETY Last administered on 11/05/19 06:20; Start 11/01/19 at 16:30 Polyethylene Glycol (miraLAX PACKET) 17 gm DAILY PO Last administered on at 09:38; Start 11/02/19 at 16:30 Psyllium Hydrophilic Mucilloid (Metamucil Fiber Packet) 1 pkt DAILY PO Last administered on 11/04/19 09:38; Start 11/02/19 at 16:30 Polyethylene Glycol (miraLAX PACKET) 17 gm DAILY PO ; Start 11/03/19 at 09:30; Stop 11/03/19 at 11:47; Status DC Polyethylene Glycol (miraLAX PACKET) 17 gm PRN DAILY PRN PO CONSTIPATION 1ST CHOICE; Start 11/03/19 at 09:15 Bisacodyl (Dulcolax Tab) 5 mg PRN DAILY PRN PO constipation 2nd choice; Start 11/03/19 at 09:15 Magnesium Citrate (Citroma) 296 ml 1X ONCE PO Last administered on 11/03/19at 13:37; Start 11/03/19 at 13:30; Stop 11/03/19 at 13:31; Status DC Lactulose (Lactulose) 20 gm PRN DAILY PRN PO CONSTIPATION; Start 11/03/19 at 13:30; Stop 11/04/19 at 15:11; Status DC Lactulose (Lactulose) 20 gm BID PO Last administered on 11/04/19at 21:02; Start 11/04/19 at 15:15 Active Scripts Active Lantus Solostar (Insulin Glargine,Hum.rec.anlog) 100 Unit/1 Ml Insuln.pen 10 Unit SQ QHS 30 Days Humalog (Insulin Lispro) 100 Unit/1 Ml Insuln.pen 0 Units SQ TIDACHC 30 Days Diazepam 2 Mg Tablet 2 Mg PO PRN TID PRN 6 Days Hydrocodone-Acetamin 5-325 mg (Hydrocodone/Acetaminophen) 1 Each Tablet 1 Tab PO PRN Q6HRS PRN 6 Days Carafate (Sucralfate) 1 Gm Tablet 1 Tab PO QID 30 Days Protonix (Pantoprazole Sodium) 20 Mg Tablet.dr 2 Tab PO DAILY 30 Days Reported Multivitamins (Multivitamin) 1 Each Tablet 1 Tab PO DAILY Melatonin 3 Mg Tablet 3 Tab PO QHS Isosorbide Mononitrate Er (Isosorbide Mononitrate) 30 Mg Tab.er.24h 1 Tab PO DAILY Imodium A-D (Loperamide HCl) 2 Mg Capsule 2 Mg PO Q6HRS PRN Gabapentin (Gabapentin) 300 Mg Capsule 300 Mg PO HS Flonase Allergy Relief (Fluticasone Propionate) 9.9 Ml [place].susp 2 Sprays NS DAILY Depakote (Divalproex Sodium) 500 Mg Tablet.dr 500 Mg PO DAILY Calcium 600 + Vit D Tablet (Calcium Carbonate/Vitamin D3) 1 Each Tablet 1 Each PO BID Atorvastatin Calcium 20 Mg Tablet 20 Mg PO HS Aspirin 81 Mg Tab.chew 1 Tab PO DAILY Vitals/I & O Vital Sign - Last 24 Hours 11/04/19 11/04/19 11/04/19 11/04/19 11:00 11:16 15:00 16:09 Temp 97.6 97.7 97.6 97.7 Pulse 81 82 Resp 18 18 B/P (MAP) 104/59 (74) 127/72 (90) Pulse Ox 96 96 97 97 O2 Delivery Room Air Room Air Room Air Room Air 11/04/19 11/04/19 11/04/19 11/04/19 17:28 19:00 20:00 21:03 Temp 98.5 98.5 Pulse 73 Resp 18 B/P (MAP) 101/54 (70) Pulse Ox 97 92 92 O2 Delivery Room Air Room Air Room Air Room Air 11/04/19 11/04/19 11/04/19 11/05/19 22:32 23:00 23:32 01:03 Pulse 65 Resp 18 B/P (MAP) 107/65 (79) Pulse Ox 92 95 92 92 O2 Delivery Room Air Room Air Room Air Room Air 11/05/19 11/05/19 11/05/19 11/05/19 06:20 07:00 07:20 08:04 Temp 97.9 97.9 Pulse 75 Resp 16 B/P (MAP) 123/77 (92) Pulse Ox 92 99 92 O2 Delivery Room Air Room Air Room Air Room Air Intake and Output 11/04/19 11/04/19 11/05/19 15:00 23:00 07:00 Intake Total 200 ml 200 ml Output Total 150 ml 250 ml Balance 50 ml -50 ml Hemodynamically unstable?: No Is patient in severe pain?: No Is NPO status required?: No ULISES GOODMAN MD Nov 05, 2019 09:17
[2019-11-05 11:00] VITALS: BP 123/53
[2019-11-05 15:00] VITALS: BP 105/54
[2019-11-05 19:00] VITALS: BP 127/56
[2019-11-05] MEDS: ATORVASTATIN CALCIUM 20 MG TABLET PO SCH (21:17)
[2019-11-05] MEDS: MORPHINE ER 15 MG TABLET.ER PO SCH (21:17)
[2019-11-05] MEDS: GABAPENTIN 300 MG CAPSULE. PO SCH (21:17)
[2019-11-05 23:00] VITALS: BP 139/78
[2019-11-06] MEDS: ENOXAPARIN 40 MG/0.4 ML SYRINGE. SQ SCH
[2019-11-06] MEDS: HYDROcodone/APAP 5/325MG 1 TAB TABLET PO PRN ×4 (00:55→19:10)
[2019-11-06 03:00] VITALS: BP 140/85
[2019-11-06] MEDS: diazePAM 2 MG TABLET PO PRN ×2 (06:04→17:00)
[2019-11-06 06:24] LABS: BASO % 1 % (0-3); EOS # 0.2 x10^3/uL (0.0-0.7); EOS % 5 % (0-3); HEMATOCRIT 39.9 % (36.0-47.0); HEMOGLOBIN 13.2 g/dL (12.0-15.5); LYMPH # 1.8 x10^3/uL (1.0-4.8); LYMPH % 34 % (24-48); MEAN CORPUSCULAR HEMOGLOBIN 29 pg (25-35); MEAN CORPUSCULAR HGB CONC 33 g/dL (31-37); MEAN CORPUSCULAR VOLUME 87 fL (79-100); MONO # 0.3 x10^3/uL (0.0-1.1); MONO % 7 % (0-9); NEUT # 2.9 x10^3/uL (1.8-7.7); NEUT % 55 % (31-73); PLATELET COUNT 215 x10^3/uL (140-400); RED BLOOD COUNT 4.58 x10^6/uL (3.50-5.40); RED CELL DISTRIBUTION WIDTH 13.2 % (11.5-14.5); WHITE BLOOD COUNT 5.3 x10^3/uL (4.0-11.0)
[2019-11-06 06:38] LABS: ALBUMIN 2.5 g/dL (3.4-5.0); ALBUMIN/GLOBULIN RATIO 0.8 (1.0-1.7); CALCIUM 8.5 mg/dL (8.5-10.1); CREATININE 1.3 mg/dL (0.6-1.0); GFR 41.9; POTASSIUM 5.2 mmol/L (3.5-5.1); TOTAL BILIRUBIN 0.4 mg/dL (0.2-1.0); TOTAL PROTEIN 5.6 g/dL (6.4-8.2)
--- NOTE | 2019-11-06 06:54 | NUR ---
Patient has critical lab value for glucose of 512. Critical lab value reported to Dr. Jaimes at 0651, received orders for 10 units insulin lispro, and to recheck blood sugar in 30 minutes. Patient has repeatedly refused blood sugar checks and insulin from staff. This RN tried to administer order received from Dr. Jaimes but the patient refused.
[2019-11-06 07:00] VITALS: BP 91/43
[2019-11-06] MEDS ORDERED: INSULIN LISPRO 300 UNITS/3 ML VIAL. SQ SCH (07:00)
[2019-11-06] MEDS: INSULIN LISPRO 300 UNITS/3 ML VIAL. SQ SCH ×4 (07:30→20:50)
[2019-11-06] MEDS: SUCRALFATE 1 GM TABLET. PO SCH ×2 (07:30→16:30)
[2019-11-06] MEDS: PANTOPRAZOLE 40 MG TABLET.DR. PO SCH (07:30)
[2019-11-06] MEDS: MORPHINE ER 15 MG TABLET.ER PO SCH ×3 (07:37→22:41)
[2019-11-06] MEDS: POLYETHYLENE GLYCOL 3350 17 GM PACKET. PO SCH (08:19)
[2019-11-06] MEDS: ASPIRIN CHEWABLE 81 MG TABLET. PO SCH (08:19)
[2019-11-06] MEDS: LACTULOSE 20 GM/30 ML SOLUTION. PO SCH ×2 (08:19→21:00)
[2019-11-06] MEDS: DIVALPROEX DELAYED RELEASE 500 MG TABLET.DR. PO SCH ×2 (08:19→21:00)
[2019-11-06] MEDS: PSYLLIUM HUSK (SUGAR FREE) 1 PKT PACKET PO SCH (08:19)
[2019-11-06] MEDS: ISOSORBIDE MONONITRATE ER 30 MG TAB.ER.24H PO SCH (08:19)
--- NOTE | 2019-11-06 08:55 | PDOC ---
PROGRESS NOTES Chief Complaint Chief Complaint A/P: stable angina on admit, Coronary artery disease, status post [place] with stent deployment previously. Cont meds Type 2 diabetes - will place on sliding scale, A1c 10.2. She is refusing a lot of insulin therapy, heavily counseled today Hypertension - cont meds Hyperlipidemia - cont meds Gastroesophageal reflux disease - cont meds. Likely with need for esophageal dilation Generalized weakness - will have PT to evaluated Right heel wound - seems to be a bedsore. Difficulty walking - right heel ulcer and left ankle in brace Left bimalleolar fracture - patient notes she was seen recently by orthopedic surgeon. She is still nonweightbearing and mostly bed bound, wheelchair bound. Morbid obesity - counseled on diet, exercise. Insight seems very poor Elevated alkaline phosphatase - will d/w GI, was just evaluated 5 weeks ago. MRCP grossly abnormal Elevated CA19-9 - recommend EUS per GI, can be scheduled outpatient Behavioral disorder - her self care is poor, seems depressed, thoughts seem disorganized. A psychotic disorder with concomitant borderline personality seem to be present. Is on depakote likely for treatment of this. Chronic dysphagia, GERD - Schatkzi's ring dilated, h/o esophageal dysmotility on past imaging - on PPI - not interested in changing her diet History of Present Illness History of Present Illness Ms Del Rosario is a 59yo F w/ PMHx CAD s/p stent, HTN, HLD, DM2, GERD, left ankle fr acture who presented from nursing facility secondary to chest/ epigastric pain. Patient reports pain has been present for the last 2 days and states she has not been allowed to eat for 3 days. Pain is located in her central epigastric region. Pain seems to radiate up the the left chest. No dizziness, diaphoresis, shortness of breath, or nausea/vomiting. Has been requesting GI cocktail, which she reports improves pain. She reported was living in her car for the past 2 years and slipped and fell getting out of her car, fracturing her left ankle, states she went under the car, was in [facility] the past 18 weeks, apparently. Chest x-ray with mild pulmonary edema. Labs are unremarkable for acute changes. Liver enzymes are chronically elevated with Alkaline phosphatase much higher. Ejection fraction from cardiac workup last month was 60%. . Influenza are negative. Strep is negative. After d/w ED and [facility], [place], apparently she signed out AMA from [facility] and had called 911 and EMS transported her here as she was unable to walk out of the facility. On further ROS her story is inconsistent in many parts and does change. Difficult to follow. She displays some splitting with her remarks about previous physicians. She adamantly denies any mental health diagnoses. 10/31: She is refusing multiple therapies today. Refusing to have her LLE x-rayed. MRCP results reviewed from 10/30 showing pancreatic atropy and biliary tree dilation, right renal atrophy. EGD - Schatzki ring dilated 11/01: She had some nausea after EGD. xray of her ankle - Bimalleolar fracture, Soft tissue swelling over the medial malleolus and widening of the medial mortise is consistent with ligamentous disruption, soft tissue swelling and Gross osteopenia which could be secondary to disuse atrophy. Tells me she needs her keys to her car, thinks staff still has them in [place]. Heel wound improved. Chest pain resolved. 11/02: Tearful today after reviewing CA19-9 labs. She is still constipated. Advised A1c is 10.2. She is asking for help with $3000 to have her in [place] the [place]. I have offered to call him to discuss her findings. 11/03: Overnight slid off the side of the bed onto her knees while trying to get onto the commode. She is having a BM currently, tells me she has spent over an hour on the commode today. Refused lactulose and mag citrate. 11/05 has been refusing things for days, refused insulin this AM, blood sugar > 500, I went in her room, and there are 2 sprites, and 3 cakes, one half eaten, and an open bag of Ruffels, I threw the cakes and the chips in the trash and pleaded with her to take some insulin, and discussed coma risk. will consult psych Vitals Vitals Vital Signs Date Time Temp Pulse Resp B/P (MAP) Pulse Ox O2 Delivery O2 Flow Rate FiO2 11/06/19 07:37 Room Air 11/06/19 07:04 91 11/06/19 03:00 98.2 70 18 140/85 (103) 98.2 Physical Exam General: Alert, Cooperative, No acute distress Abdomen: Normal bowel sounds, Soft, No tenderness, No hepatosplenomegaly, No masses Extremities: No clubbing, No cyanosis, No edema, Normal pulses Skin: Other (Right heel abrasion with "" wound cover) Labs LABS Laboratory Tests Test 11/06/19 05:15 White Blood Count 5.3 x10^3/uL (4.0-11.0) Red Blood Count 4.58 x10^6/uL (3.50-5.40) Hemoglobin 13.2 g/dL (12.0-15.5) Hematocrit 39.9 % (36.0-47.0) Mean Corpuscular Volume 87 fL (79-100) Mean Corpuscular Hemoglobin 29 pg (25-35) Mean Corpuscular Hemoglobin Concent 33 g/dL (31-37) Red Cell Distribution Width 13.2 % (11.5-14.5) Platelet Count 215 x10^3/uL (140-400) Neutrophils (%) (Auto) 55 % (31-73) Lymphocytes (%) (Auto) 34 % (24-48) Monocytes (%) (Auto) 7 % (0-9) Eosinophils (%) (Auto) 5 % (0-3) Basophils (%) (Auto) 1 % (0-3) Neutrophils # (Auto) 2.9 x10^3/uL (1.8-7.7) Lymphocytes # (Auto) 1.8 x10^3/uL (1.0-4.8) Monocytes # (Auto) 0.3 x10^3/uL (0.0-1.1) Eosinophils # (Auto) 0.2 x10^3/uL (0.0-0.7) Basophils # (Auto) 0.0 x10^3/uL (0.0-0.2) Sodium Level 142 mmol/L (136-145) Potassium Level 5.2 mmol/L (3.5-5.1) Chloride Level 104 mmol/L (98-107) Carbon Dioxide Level 30 mmol/L (21-32) Anion Gap 8 (6-14) Blood Urea Nitrogen 9 mg/dL (7-20) Creatinine 1.3 mg/dL (0.6-1.0) Estimated GFR (Cockcroft-Gault) 41.9 BUN/Creatinine Ratio 7 (6-20) Glucose Level 512 mg/dL (70-99) Calcium Level 8.5 mg/dL (8.5-10.1) Total Bilirubin 0.4 mg/dL (0.2-1.0) Aspartate Amino Transf (AST/SGOT) 28 U/L (15-37) Alanine Aminotransferase (ALT/SGPT) 71 U/L (14-59) Alkaline Phosphatase 434 U/L (46-116) Total Protein 5.6 g/dL (6.4-8.2) Albumin 2.5 g/dL (3.4-5.0) Albumin/Globulin Ratio 0.8 (1.0-1.7) Assessment and Plan Assessmemt and Plan Problems Medical Problems: (1) Failure to thrive Status: Acute Comment Review of Relevant I have reviewed the following items octavio (where applicable) has been applied. Labs Laboratory Tests Test 11/06/19 05:15 White Blood Count 5.3 x10^3/uL (4.0-11.0) Red Blood Count 4.58 x10^6/uL (3.50-5.40) Hemoglobin 13.2 g/dL (12.0-15.5) Hematocrit 39.9 % (36.0-47.0) Mean Corpuscular Volume 87 fL (79-100) Mean Corpuscular Hemoglobin 29 pg (25-35) Mean Corpuscular Hemoglobin Concent 33 g/dL (31-37) Red Cell Distribution Width 13.2 % (11.5-14.5) Platelet Count 215 x10^3/uL (140-400) Neutrophils (%) (Auto) 55 % (31-73) Lymphocytes (%) (Auto) 34 % (24-48) Monocytes (%) (Auto) 7 % (0-9) Eosinophils (%) (Auto) 5 % (0-3) Basophils (%) (Auto) 1 % (0-3) Neutrophils # (Auto) 2.9 x10^3/uL (1.8-7.7) Lymphocytes # (Auto) 1.8 x10^3/uL (1.0-4.8) Monocytes # (Auto) 0.3 x10^3/uL (0.0-1.1) Eosinophils # (Auto) 0.2 x10^3/uL (0.0-0.7) Basophils # (Auto) 0.0 x10^3/uL (0.0-0.2) Sodium Level 142 mmol/L (136-145) Potassium Level 5.2 mmol/L (3.5-5.1) Chloride Level 104 mmol/L (98-107) Carbon Dioxide Level 30 mmol/L (21-32) Anion Gap 8 (6-14) Blood Urea Nitrogen 9 mg/dL (7-20) Creatinine 1.3 mg/dL (0.6-1.0) Estimated GFR (Cockcroft-Gault) 41.9 BUN/Creatinine Ratio 7 (6-20) Glucose Level 512 mg/dL (70-99) Calcium Level 8.5 mg/dL (8.5-10.1) Total Bilirubin 0.4 mg/dL (0.2-1.0) Aspartate Amino Transf (AST/SGOT) 28 U/L (15-37) Alanine Aminotransferase (ALT/SGPT) 71 U/L (14-59) Alkaline Phosphatase 434 U/L (46-116) Total Protein 5.6 g/dL (6.4-8.2) Albumin 2.5 g/dL (3.4-5.0) Albumin/Globulin Ratio 0.8 (1.0-1.7) Laboratory Tests Test 11/06/19 05:15 White Blood Count 5.3 x10^3/uL (4.0-11.0) Red Blood Count 4.58 x10^6/uL (3.50-5.40) Hemoglobin 13.2 g/dL (12.0-15.5) Hematocrit 39.9 % (36.0-47.0) Mean Corpuscular Volume 87 fL (79-100) Mean Corpuscular Hemoglobin 29 pg (25-35) Mean Corpuscular Hemoglobin Concent 33 g/dL (31-37) Red Cell Distribution Width 13.2 % (11.5-14.5) Platelet Count 215 x10^3/uL (140-400) Neutrophils (%) (Auto) 55 % (31-73) Lymphocytes (%) (Auto) 34 % (24-48) Monocytes (%) (Auto) 7 % (0-9) Eosinophils (%) (Auto) 5 % (0-3) Basophils (%) (Auto) 1 % (0-3) Neutrophils # (Auto) 2.9 x10^3/uL (1.8-7.7) Lymphocytes # (Auto) 1.8 x10^3/uL (1.0-4.8) Monocytes # (Auto) 0.3 x10^3/uL (0.0-1.1) Eosinophils # (Auto) 0.2 x10^3/uL (0.0-0.7) Basophils # (Auto) 0.0 x10^3/uL (0.0-0.2) Sodium Level 142 mmol/L (136-145) Potassium Level 5.2 mmol/L (3.5-5.1) Chloride Level 104 mmol/L (98-107) Carbon Dioxide Level 30 mmol/L (21-32) Anion Gap 8 (6-14) Blood Urea Nitrogen 9 mg/dL (7-20) Creatinine 1.3 mg/dL (0.6-1.0) Estimated GFR (Cockcroft-Gault) 41.9 BUN/Creatinine Ratio 7 (6-20) Glucose Level 512 mg/dL (70-99) Calcium Level 8.5 mg/dL (8.5-10.1) Total Bilirubin 0.4 mg/dL (0.2-1.0) Aspartate Amino Transf (AST/SGOT) 28 U/L (15-37) Alanine Aminotransferase (ALT/SGPT) 71 U/L (14-59) Alkaline Phosphatase 434 U/L (46-116) Total Protein 5.6 g/dL (6.4-8.2) Albumin 2.5 g/dL (3.4-5.0) Albumin/Globulin Ratio 0.8 (1.0-1.7) Microbiology 10/30/19 Urine Culture - Final, Complete 10/30/19 Urine Culture Result 1 (LAURE) - Final, Complete 10/30/19 Nose/Throat Culture - Final, Complete 10/30/19 - Final, Complete Medications Current Medications Ondansetron HCl (Zofran) 4 mg PRN Q8HRS PRN IV NAUSEA/VOMITING; Start 10/30/19 at 21:00; Stop 10/30/19 at 23:49; Status DC Ondansetron HCl (Zofran) 4 mg PRN Q6HRS PRN IV NAUSEA/VOMITING 1ST CHOICE Last administered on 3/7/20at 09:54; Start 10/30/19 at 23:45 Aspirin (Children'S Aspirin) 81 mg DAILY PO Last administered on 11/05/19 08:05; Start 10/31/19 at 09:00 Atorvastatin Calcium (Lipitor) 20 mg HS PO Last administered on 11/05/19 21:17; Start 10/31/19 at 21:00 Divalproex Sodium (Depakote) 500 mg DAILY PO Last administered on 11/04/19 09:37; Start 10/31/19 at 09:00 Gabapentin (Neurontin) 300 mg HS PO Last administered on 11/05/19 21:17; Start 10/31/19 at 21:00 Isosorbide Mononitrate (Imdur) 30 mg DAILY PO Last administered on 11/03/19 08:47; Start 10/31/19 at 09:00 Loperamide HCl (Imodium) 2 mg PRN Q6HRS PRN PO DIARRHEA; Start 10/30/19 at 23:45 Sucralfate (Carafate) 1 gm QIDACHS PO Last administered on 10/31/19 20:29; Start 10/31/19 at 07:30; Stop 11/01/19 at 13:30; Status DC Pantoprazole Sodium (Protonix) 40 mg DAILYAC PO Last administered on 11/05/19 08:04; Start 10/31/19 at 07:30 Acetaminophen (Tylenol) 650 mg PRN Q6HRS PRN PO MILD pain/temp; Start 10/30/19 at 23:45 Enoxaparin Sodium (Lovenox 40mg Syringe) 40 mg Q24H SQ Last administered on 10/31/19at 02:09; Start 10/31/19 at 00:00 Insulin Human Lispro (HumaLOG) 0-5 UNITS TIDACHC SQ ; Start 10/31/19 at 07:30 Dextrose (Dextrose 50%-Water Syringe) 12.5 gm PRN Q15MIN PRN IV SEE COMMENTS; Start 10/31/19 at 00:00 Acetaminophen/ Hydrocodone Bitart (Lortab 5/325) 2 tab PRN Q4HRS PRN PO SEVERE PAIN 7-10 Last administered on 11/06/19 06:04; Start 10/31/19 at 02:00 Morphine Sulfate (Ms Contin) 30 mg BID PO Last administered on 11/05/19 08:04; Start 10/31/19 at 02:00; Stop 11/05/19 at 09:17; Status DC Multi-Ingredient Mouthwash/Gargle (Gi Cocktail) 20 ml PRN QID PRN PO chest/epigastric pain; Start 10/31/19 at 15:45 Diazepam (Valium) 5 mg 1X ONCE PO Last administered on 10/31/19at 20:30; Start 10/31/19 at 18:30; Stop 10/31/19 at 18:31; Status DC Sucralfate (Carafate) 1 gm BIDAC PO Last administered on 11/04/19 09:37; Start 11/01/19 at 16:30 Diazepam (Valium) 2 mg PRN TID PRN PO ANXIETY Last administered on 11/06/19 06:04; Start 11/01/19 at 16:30 Polyethylene Glycol (miraLAX PACKET) 17 gm DAILY PO Last administered on 11/04/19at 09:38; Start 11/02/19 at 16:30 Psyllium Hydrophilic Mucilloid (Metamucil Fiber Packet) 1 pkt DAILY PO Last administered on 11/04/19at 09:38; Start 11/02/19 at 16:30 Polyethylene Glycol (miraLAX PACKET) 17 gm DAILY PO ; Start 11/03/19 at 09:30; Stop 11/03/19 at 11:47; Status DC Polyethylene Glycol (miraLAX PACKET) 17 gm PRN DAILY PRN PO CONSTIPATION 1ST CHOICE; Start 11/03/19 at 09:15 Bisacodyl (Dulcolax Tab) 5 mg PRN DAILY PRN PO constipation 2nd choice; Start 11/03/19 at 09:15 Magnesium Citrate (Citroma) 296 ml 1X ONCE PO Last administered on 11/03/19at 13:37; Start 11/03/19 at 13:30; Stop 11/03/19 at 13:31; Status DC Lactulose (Lactulose) 20 gm PRN DAILY PRN PO CONSTIPATION; Start 11/03/19 at 13:30; Stop 11/04/19 at 15:11; Status DC Lactulose (Lactulose) 20 gm BID PO Last administered on 11/04/19at 21:02; Start 11/04/19 at 15:15 Morphine Sulfate (Ms Contin) 15 mg BID PO Last administered on 11/06/19at 07:37; Start 11/05/19 at 21:00 Insulin Human Lispro (HumaLOG) 10 units 1X SQ ; Start 11/06/19 at 07:00 Active Scripts Active Lantus Solostar (Insulin Glargine,Hum.rec.anlog) 100 Unit/1 Ml Insuln.pen 10 Unit SQ QHS 30 Days Humalog (Insulin Lispro) 100 Unit/1 Ml Insuln.pen 0 Units SQ TIDACHC 30 Days Diazepam 2 Mg Tablet 2 Mg PO PRN TID PRN 6 Days Hydrocodone-Acetamin 5-325 mg (Hydrocodone/Acetaminophen) 1 Each Tablet 1 Tab PO PRN Q6HRS PRN 6 Days Carafate (Sucralfate) 1 Gm Tablet 1 Tab PO QID 30 Days Protonix (Pantoprazole Sodium) 20 Mg Tablet.dr 2 Tab PO DAILY 30 Days Reported Multivitamins (Multivitamin) 1 Each Tablet 1 Tab PO DAILY Melatonin 3 Mg Tablet 3 Tab PO QHS Isosorbide Mononitrate Er (Isosorbide Mononitrate) 30 Mg Tab.er.24h 1 Tab PO DAILY Imodium A-D (Loperamide HCl) 2 Mg Capsule 2 Mg PO Q6HRS PRN Gabapentin (Gabapentin) 300 Mg Capsule 300 Mg PO HS Flonase Allergy Relief (Fluticasone Propionate) 9.9 Ml [place].susp 2 Sprays NS DAILY Depakote (Divalproex Sodium) 500 Mg Tablet.dr 500 Mg PO DAILY Calcium 600 + Vit D Tablet (Calcium Carbonate/Vitamin D3) 1 Each Tablet 1 Each PO BID Atorvastatin Calcium 20 Mg Tablet 20 Mg PO HS Aspirin 81 Mg Tab.chew 1 Tab PO DAILY Vitals/I & O Vital Sign - Last 24 Hours 11/05/19 11/05/19 11/05/19 11/05/19 11:00 11:35 12:04 12:35 Temp 98.2 98.2 Pulse 60 Resp 16 B/P (MAP) 123/53 (76) Pulse Ox 98 92 O2 Delivery Room Air Room Air Room Air Room Air 11/05/19 11/05/19 11/05/19 11/05/19 15:00 17:04 18:04 19:00 Temp 98.1 97.8 98.1 97.8 Pulse 70 74 Resp 18 18 B/P (MAP) 105/54 (71) 127/56 (79) Pulse Ox 95 95 95 O2 Delivery Room Air Room Air Room Air Room Air 11/05/19 11/05/19 11/05/19 11/06/19 20:00 21:17 23:00 00:55 Temp 97.9 97.9 Pulse 72 Resp 18 20 B/P (MAP) 139/78 (98) Pulse Ox 95 90 O2 Delivery Room Air Room Air Room Air Room Air 11/06/19 11/06/19 11/06/19 11/06/19 01:17 01:55 03:00 06:04 Temp 98.2 98.2 Pulse 70 Resp 18 B/P (MAP) 140/85 (103) Pulse Ox 90 90 91 91 O2 Delivery Room Air Room Air Room Air Room Air 11/06/19 11/06/19 07:04 07:37 Pulse Ox 91 O2 Delivery Room Air Room Air Intake and Output 11/05/19 11/05/19 11/06/19 15:00 23:00 07:00 Intake Total 200 ml 200 ml Balance 200 ml 200 ml Hemodynamically unstable?: No Is patient in severe pain?: No Is NPO status required?: No THERESA COFFEY MD Nov 06, 2019 08:55
--- NOTE | 2019-11-06 10:14 | PDOC ---
Subjective: Subjective: Won't answer my questions, discusses unrelated issues, many complaints. Objective: Objective: D/w nurse - eats fine, refuses meds - specifically insulin, glucose >500 this morning. Vital Signs: Vital Signs Date Time Temp Pulse Resp B/P (MAP) Pulse Ox O2 Delivery O2 Flow Rate FiO2 11/06/19 07:37 Room Air 11/06/19 07:04 91 11/06/19 07:00 98.2 60 18 91/43 (59) 98.2 Labs: Laboratory Tests Test 11/06/19 05:15 White Blood Count 5.3 x10^3/uL Red Blood Count 4.58 x10^6/uL Hemoglobin 13.2 g/dL Hematocrit 39.9 % Mean Corpuscular Volume 87 fL Mean Corpuscular Hemoglobin 29 pg Mean Corpuscular Hemoglobin Concent 33 g/dL Red Cell Distribution Width 13.2 % Platelet Count 215 x10^3/uL Neutrophils (%) (Auto) 55 % Lymphocytes (%) (Auto) 34 % Monocytes (%) (Auto) 7 % Eosinophils (%) (Auto) 5 % Basophils (%) (Auto) 1 % Neutrophils # (Auto) 2.9 x10^3/uL Lymphocytes # (Auto) 1.8 x10^3/uL Monocytes # (Auto) 0.3 x10^3/uL Eosinophils # (Auto) 0.2 x10^3/uL Basophils # (Auto) 0.0 x10^3/uL Sodium Level 142 mmol/L Potassium Level 5.2 mmol/L Chloride Level 104 mmol/L Carbon Dioxide Level 30 mmol/L Anion Gap 8 Blood Urea Nitrogen 9 mg/dL Creatinine 1.3 mg/dL Estimated GFR (Cockcroft-Gault) 41.9 BUN/Creatinine Ratio 7 Glucose Level 512 mg/dL Calcium Level 8.5 mg/dL Total Bilirubin 0.4 mg/dL Aspartate Amino Transf (AST/SGOT) 28 U/L Alanine Aminotransferase (ALT/SGPT) 71 U/L Alkaline Phosphatase 434 U/L Total Protein 5.6 g/dL Albumin 2.5 g/dL Albumin/Globulin Ratio 0.8 PE: GEN: NAD - staff helps from commode back to bed, pt uses walker - then covers entire body w/ blankets including head LUNGS: room air EXTREMITY: ankle brace NEURO/PSYCH: A & O 3, angry A/P: Chronic pain Chronic dysphagia, GERD Elevated LFTs, abnormal MRCP (?IPMN), elevated CA19-9 Constipation Psych issues, DM, non-compliance -- Compliance an issue. Outpt EUS (not available here). Hemodynamically unstable?: No Is patient in severe pain?: No Is NPO status required?: No ZACHARIAH VENCES Nov 06, 2019 10:14
[2019-11-06 11:00] VITALS: BP 102/72
--- NOTE | 2019-11-06 11:29 | NUR ---
VAZQUEZ following. Discussed with RN, pt accepted at [facility] for SNU, awaiting discharge paperwork and any scripts. [facility]Z will continue to follow. RN notified. Addendum: 11/06/19 at 1302 by ZEENAT SHUKLA SW met with pt to advise of discharge to [facility] and discussed pt choice and rights letter to have pt sign. Pt then stated she needed to use the restroom and then stated she would sign it after. Pt then stated she needs to talk to her in [place] so he knows where she is going. Pt stating she wants to discharge tomorrow not today and we are trying to kick her out. VAZQUEZ stated pt does not medically need to be in the hospital anymore and is wanting to get rehab so she can get back to getting around better. Pt kept giving excuses to not sign paperwork. VAZQUEZ advised pt SW would be back at 1400 for pt to sign or refuse to sign. RN notified. Addendum: 11/06/19 at 1403 by ZEENAT SHUKLA Nick Humphrey contacted SW to advise pt acceptance was actually a denial and [facility] (who contacted earlier to say accepted) was wrong and had misread the email thinking it said "approved" when it actually meant approved for denial. VAZQUEZ questioned why they were contacting hours later to say rectify the situation, Nick Humphrey reported they thought Ruby had called back. [facility]ZQUEZ following up with facility business plannerMerlyn sent referral to this morning. RN notified. VAZQUEZ will continue to follow. Addendum: 11/06/19 at 1631 by ZEENAT SHUKLA [facility] declined to take pt due to pt being homeless. [facility] does not have any female SNU beds available. VAZQUEZ will continue to follow.
--- NOTE | 2019-11-06 12:11 | PDOC3 ---
Discharge Summary Visit Information Date of Admission: Oct 30, 2019 Date of Discharge: Nov 03, 2019 Admitting Diagnosis: Chest pain Final Diagnosis Problems Medical Problems: (1) Failure to thrive Status: Acute Problem List: Chest pain - negative cardiac enzymes, EKG. This seems like it may be GI in etiology Coronary artery disease, status post ND with stent deployment previously. Cont meds Type 2 diabetes - will place on sliding scale, A1c 10.2. She is refusing a lot of insulin therapy, heavily counseled today Hypertension - cont meds Hyperlipidemia - cont meds Gastroesophageal reflux disease - cont meds. Likely with need for esophageal dilation Generalized weakness - will have PT to evaluated Right heel wound - seems to be a bedsore. Difficulty walking - right heel ulcer and left ankle in brace Left bimalleolar fracture - patient notes she was seen recently by orthopedic surgeon. She is still nonweightbearing and mostly bed bound, wheelchair bound. Morbid obesity - counseled on diet, exercise. Insight seems very poor Elevated alkaline phosphatase - will d/w GI, was just evaluated 5 weeks ago. MRCP grossly abnormal Elevated CA19-9 - recommend EUS per GI, can be scheduled outpatient Behavioral disorder - her self care is poor, thoughts seem disorganized. A psychotic disorder with concomitant borderline personality seem to be present. I s on depakote likely for treatment of this. Chronic dysphagia, GERD - Schatkzi's ring dilated, h/o esophageal dysmotility on past imaging - on PPI - not interested in changing her diet GI recs: Previously recommended ERCP/brushings or EUS/FNA (not available here) - will review w/ Dr. Garcia. Continue PPI, treat constipation more aggressively. Greater than 30 minutes spent on d/c Brief Hospital Course Allergies Allergies Coded Allergies Type Severity Reaction Last Updated Verified strawberry Allergy Severe Anaphylaxis 11/01/19 Yes ibuprofen Allergy Intermediate Hives 11/01/19 Yes Vital Signs Vital Signs Date Time Temp Pulse Resp B/P (MAP) Pulse Ox O2 Delivery O2 Flow Rate FiO2 11/06/19 11:37 Room Air 11/06/19 07:04 91 11/06/19 07:00 98.2 60 18 91/43 (59) 98.2 Lab Results Laboratory Tests Test 11/06/19 05:15 White Blood Count 5.3 x10^3/uL (4.0-11.0) Red Blood Count 4.58 x10^6/uL (3.50-5.40) Hemoglobin 13.2 g/dL (12.0-15.5) Hematocrit 39.9 % (36.0-47.0) Mean Corpuscular Volume 87 fL (79-100) Mean Corpuscular Hemoglobin 29 pg (25-35) Mean Corpuscular Hemoglobin Concent 33 g/dL (31-37) Red Cell Distribution Width 13.2 % (11.5-14.5) Platelet Count 215 x10^3/uL (140-400) Neutrophils (%) (Auto) 55 % (31-73) Lymphocytes (%) (Auto) 34 % (24-48) Monocytes (%) (Auto) 7 % (0-9) Eosinophils (%) (Auto) 5 % (0-3) Basophils (%) (Auto) 1 % (0-3) Neutrophils # (Auto) 2.9 x10^3/uL (1.8-7.7) Lymphocytes # (Auto) 1.8 x10^3/uL (1.0-4.8) Monocytes # (Auto) 0.3 x10^3/uL (0.0-1.1) Eosinophils # (Auto) 0.2 x10^3/uL (0.0-0.7) Basophils # (Auto) 0.0 x10^3/uL (0.0-0.2) Sodium Level 142 mmol/L (136-145) Potassium Level 5.2 mmol/L (3.5-5.1) Chloride Level 104 mmol/L (98-107) Carbon Dioxide Level 30 mmol/L (21-32) Anion Gap 8 (6-14) Blood Urea Nitrogen 9 mg/dL (7-20) Creatinine 1.3 mg/dL (0.6-1.0) Estimated GFR (Cockcroft-Gault) 41.9 BUN/Creatinine Ratio 7 (6-20) Glucose Level 512 mg/dL (70-99) Calcium Level 8.5 mg/dL (8.5-10.1) Total Bilirubin 0.4 mg/dL (0.2-1.0) Aspartate Amino Transf (AST/SGOT) 28 U/L (15-37) Alanine Aminotransferase (ALT/SGPT) 71 U/L (14-59) Alkaline Phosphatase 434 U/L (46-116) Total Protein 5.6 g/dL (6.4-8.2) Albumin 2.5 g/dL (3.4-5.0) Albumin/Globulin Ratio 0.8 (1.0-1.7) Laboratory Tests Test 11/06/19 05:15 White Blood Count 5.3 x10^3/uL (4.0-11.0) Red Blood Count 4.58 x10^6/uL (3.50-5.40) Hemoglobin 13.2 g/dL (12.0-15.5) Hematocrit 39.9 % (36.0-47.0) Mean Corpuscular Volume 87 fL (79-100) Mean Corpuscular Hemoglobin 29 pg (25-35) Mean Corpuscular Hemoglobin Concent 33 g/dL (31-37) Red Cell Distribution Width 13.2 % (11.5-14.5) Platelet Count 215 x10^3/uL (140-400) Neutrophils (%) (Auto) 55 % (31-73) Lymphocytes (%) (Auto) 34 % (24-48) Monocytes (%) (Auto) 7 % (0-9) Eosinophils (%) (Auto) 5 % (0-3) Basophils (%) (Auto) 1 % (0-3) Neutrophils # (Auto) 2.9 x10^3/uL (1.8-7.7) Lymphocytes # (Auto) 1.8 x10^3/uL (1.0-4.8) Monocytes # (Auto) 0.3 x10^3/uL (0.0-1.1) Eosinophils # (Auto) 0.2 x10^3/uL (0.0-0.7) Basophils # (Auto) 0.0 x10^3/uL (0.0-0.2) Sodium Level 142 mmol/L (136-145) Potassium Level 5.2 mmol/L (3.5-5.1) Chloride Level 104 mmol/L (98-107) Carbon Dioxide Level 30 mmol/L (21-32) Anion Gap 8 (6-14) Blood Urea Nitrogen 9 mg/dL (7-20) Creatinine 1.3 mg/dL (0.6-1.0) Estimated GFR (Cockcroft-Gault) 41.9 BUN/Creatinine Ratio 7 (6-20) Glucose Level 512 mg/dL (70-99) Calcium Level 8.5 mg/dL (8.5-10.1) Total Bilirubin 0.4 mg/dL (0.2-1.0) Aspartate Amino Transf (AST/SGOT) 28 U/L (15-37) Alanine Aminotransferase (ALT/SGPT) 71 U/L (14-59) Alkaline Phosphatase 434 U/L (46-116) Total Protein 5.6 g/dL (6.4-8.2) Albumin 2.5 g/dL (3.4-5.0) Albumin/Globulin Ratio 0.8 (1.0-1.7) Brief Hospital Course Ms Del Rosario is a 59yo F w/ PMHx CAD s/p stent, HTN, HLD, DM2, GERD, left ankle fracture who presented from nursing facility secondary to chest/ epigastric pain. Patient reports pain has been present for the last 2 days and states she has not been allowed to eat for 3 days. Pain is located in her central epigastric region. Pain seems to radiate up the the left chest. No dizziness, diaphoresis, shortness of breath, or nausea/vomiting. Has been requesting GI cocktail, which she reports improves pain. She reported was living in her car for the past 2 years and slipped and fell getting out of her car, fracturing her left ankle, states she went under the car, was in [facility] for the past 18 weeks, apparently. Chest x-ray with mild pulmonary edema. Labs are unremarkable for acute changes. Liver enzymes are chronically elevated with Alkaline phosphatase much higher. Ejection fraction from cardiac workup last month was 60%. . Influenza are negative. Strep is negative. After d/w ED and [facility], apparently she signed out AMA from [facility] and had called 911 and EMS transported her here as she was unable to walk out of the facility. On further ROS her story is inconsistent in many parts and does change. Difficult to follow. She displays some splitting with her remarks about previous physicians. She adamantly denies any mental health diagnoses. poor self care, needs psych f/u Discharge Information Condition at Discharge: Improved Follow Up: Weeks Disposition/Orders: D/C to Another Facility Scheduled Aspirin (Aspirin) 81 Mg Tab.chew, 1 TAB PO DAILY for antiplatelet, #30 Ref 3 (Reported) Entered as Reported by: YUKI WALKER on 09/27/19135 Last Action: Continued on 10/30/192349 by ULISES GOODMAN MD Atorvastatin Calcium (Atorvastatin Calcium) 20 Mg Tablet, 20 MG PO HS for FOR CHOLESTEROL, #30 Ref 0 (Reported) Entered as Reported by: YUKI WALKER on 09/27/19135 Last Action: Continued on 10/30/192349 by ULISES GOODMAN MD Calcium Carbonate/Vitamin D3 (Calcium 600 + Vit D Tablet) 1 Each Tablet, 1 EACH PO BID for supplement, (Reported) Entered as Reported by: YUKI WALKER on 09/27/19136 Divalproex Sodium (Depakote) 500 Mg Tablet.dr, 500 MG PO DAILY for mood disorder, (Reported) Entered as Reported by: YUKI WALKER on 09/27/19136 Last Action: Continued on 10/30/192349 by ULISES GOODMAN MD Fluticasone Propionate (Flonase Allergy Relief) 9.9 Ml [place].susp, 2 SPRAYS NS DAILY for allergy, (Reported) Entered as Reported by: YUKI WALKER on 09/27/19136 Gabapentin (Gabapentin ) 300 Mg Capsule, 300 MG PO HS for NEUROGENIC PAIN, (Reported) Entered as Reported by: YUKI WALKER on 09/27/19136 Last Action: Continued on 10/30/192349 by ULISES GOODMAN MD Insulin Glargine,Hum.rec.anlog (Lantus Solostar) 100 Unit/1 Ml Insuln.pen, 10 UNIT SQ QHS for DM2 for 30 Days, #15 Ref 3 Prescribed by: ULISES GOODMAN MD on 11/02/19 1249 Insulin Lispro (Humalog) 100 Unit/1 Ml Insuln.pen, 0 UNITS SQ TIDACHC for DM2 for 30 Days, #30 Prescribed by: ULISES GOODMAN MD on 11/02/19 1249 Isosorbide Mononitrate (Isosorbide Mononitrate Er) 30 Mg Tab.er.24h, 1 TAB PO DAILY for chest pain, #30 Ref 5 (Reported) Entered as Reported by: YUKI WALKER on 09/27/19136 Last Action: Continued on 10/30/192349 by ULISES GOODMAN MD Melatonin (Melatonin) 3 Mg Tablet, 3 TAB PO QHS for insomnia, #30 Ref 2 (Reported) Entered as Reported by: YUKI WALKER on 09/27/19136 Multivitamin (Multivitamins) 1 Each Tablet, 1 TAB PO DAILY for supplement, #90 Ref 3 (Reported) Entered as Reported by: YUKI WALKER on 09/27/19136 Pantoprazole Sodium (Protonix) 20 Mg Tablet.dr, 2 TAB PO DAILY for GERD for 30 Days, #60 Prescribed by: HALLE WORLEY on 09/29/191518 Last Action: Converted on 10/30/192349 by ULISES GOODMAN MD Sucralfate (Carafate) 1 Gm Tablet, 1 TAB PO QID for GERD for 30 Days, #120 Ref 0 Prescribed by: HALLE WORLEY on 09/29/191518 Last Action: Continued on 10/30/192349 by ULISES GOODMAN MD Scheduled PRN Diazepam (Diazepam) 2 Mg Tablet, 2 MG PO PRN TID PRN for ANXIETY for 6 Days, #15 Prescribed by: ULISES GOODMAN MD on 11/02/19 1249 Hydrocodone/Acetaminophen (Hydrocodone-Acetamin 5-325 mg) 1 Each Tablet, 1 TAB PO PRN Q6HRS PRN for PAIN for 6 Days, #20 Prescribed by: ULISES GOODMAN MD on 11/02/19 1249 Loperamide HCl (Imodium A-D) 2 Mg Capsule, 2 MG PO Q6HRS PRN for DIARRHEA, (Reported) Entered as Reported by: YUKI WALKER on 09/27/19136 Last Action: Continued on 10/30/192349 by ULISES GOODMAN MD Discontinued Medications Clindamycin Hcl (Clindamycin Hcl) 300 Mg Capsule, 300 MG PO QID for infection, (Reported) Entered as Reported by: YUKI WALKER on 09/27/19136 Diazepam (Diazepam) 10 Mg Tablet, 10 MG PO Q6HRS PRN for ANXIETY, (Reported) Entered as Reported by: YUKI WALKER on 09/27/19136 Last Action: Converted on 11/01/191620 by ULISES GOODMAN MD Fluconazole (Diflucan) 100 Mg Tablet, 1 TAB PO DAILY for CANDIDIASIS for 7 Days, #7 Ref 0 Prescribed by: HALLE WORLEY on 09/29/19 1519 Morphine Sulfate (Morphine Sulfate Er) 30 Mg Tablet.er, 1 TAB PO BID for pain, #60 (Reported) Entered as Reported by: YUKI WALKER on 09/27/19 0137 Patient Instructions Patient Instructions > 30 min face to face full other note today Hemodynamically unstable?: No Is patient in severe pain?: No Is NPO status required?: No THERESA COFFEY MD Nov 06, 2019 12:11
--- NOTE | 2019-11-06 12:28 | SNU/HH DC ---
DISCHARGE ORDERS DISCHARGE INFORMATION: DISCHARGE DATE: Nov 02, 2019 FINAL DIAGNOSIS Problems Medical Problems: (1) Failure to thrive Status: Acute CONDITION ON DISCHARGE: Stable CODE STATUS: Code Status: Full GROUP HOME: SNF STAY <30 DAYS: Yes POST DISCHARGE ORDERS: ACTIVITY ORDERS: No restrictions, Resume previous activity, Activity as tolerated WEIGHT BEARING STATUS: No restrictions, Full weight bearing, As tolerated DIET AFTER DISCHARGE: ADA WOUND/INCISION CARE: No wound care needed CHECKS AFTER DISCHARGE: CHECKS AFTER DISCHARGE: Check blood press - daily, Check blood sugar, ac/hs, Check your Temp as needed TREATMENT/EQUIPMENT ORDERS: ADAPTIVE EQUIPMENT NEEDED: Walker Physical Therapy For: Evalulation/Treatment Occupational Therapy For: Evaluation/Treatment DISCHARGE MEDICATIONS: Home Meds Active Scripts Insulin Glargine,Hum.rec.anlog (LANTUS SOLOSTAR) 100 Unit/1 Ml Insuln.pen, 10 UNIT SQ QHS for DM2 for 30 Days, #15 ML 3 Refills Prov:ULISES GOODMAN MD 11/02/19 Insulin Lispro (HUMALOG) 100 Unit/1 Ml Insuln.pen, 0 UNITS SQ TIDACHC for DM2 for 30 Days, #30 EACH Prov:ULISES GOODMAN MD 11/02/19 Diazepam (DIAZEPAM) 2 Mg Tablet, 2 MG PO PRN TID PRN for ANXIETY for 6 Days, #15 TAB Prov:ULISES GOODMAN MD 11/02/19 Hydrocodone/Acetaminophen (Hydrocodone-Acetamin 5-325 mg) 1 Each Tablet, 1 TAB PO PRN Q6HRS PRN for PAIN for 6 Days, #20 TAB Prov:ULISES GOODMAN MD 11/02/19 Sucralfate (CARAFATE) 1 Gm Tablet, 1 TAB PO QID for GERD for 30 Days, #120 TAB 0 Refills Prov:MEIR NERI MD 09/29/19 Pantoprazole Sodium (PROTONIX) 20 Mg Tablet.dr, 2 TAB PO DAILY for GERD for 30 Days, #60 TAB Prov:MEIR NERI MD 09/29/19 Reported Medications Multivitamin (MULTIVITAMINS) 1 Each Tablet, 1 TAB PO DAILY for supplement, #90 TAB 3 Refills 09/27/19 Melatonin (MELATONIN) 3 Mg Tablet, 3 TAB PO QHS for insomnia, #30 TAB 2 Refills 09/27/19 Isosorbide Mononitrate (ISOSORBIDE MONONITRATE ER) 30 Mg Tab.er.24h, 1 TAB PO DAILY for chest pain, #30 TAB 5 Refills 09/27/19 Loperamide HCl (Imodium A-D) 2 Mg Capsule, 2 MG PO Q6HRS PRN for DIARRHEA, CAP 09/27/19 Gabapentin (GABAPENTIN ) 300 Mg Capsule, 300 MG PO HS for NEUROGENIC PAIN, CAP 09/27/19 Fluticasone Propionate (Flonase Allergy Relief) 9.9 Ml [place].susp, 2 SPRAYS NS DAILY for allergy, BOTTLE 09/27/19 Divalproex Sodium (DEPAKOTE) 500 Mg Tablet.dr, 500 MG PO DAILY for mood disorder, TAB 09/27/19 Calcium Carbonate/Vitamin D3 (CALCIUM 600 + VIT D TABLET) 1 Each Tablet, 1 EACH PO BID for supplement, TAB 09/27/19 Atorvastatin Calcium (ATORVASTATIN CALCIUM) 20 Mg Tablet, 20 MG PO HS for FOR CHOLESTEROL, #30 TAB 0 Refills 09/27/19 Aspirin (ASPIRIN) 81 Mg Tab.chew, 1 TAB PO DAILY for antiplatelet, #30 TAB 3 Refills 09/27/19 Discontinued Reported Medications Morphine Sulfate (MORPHINE SULFATE ER) 30 Mg Tablet.er, 1 TAB PO BID for pain, #60 TAB 09/27/19 Diazepam (DIAZEPAM) 10 Mg Tablet, 10 MG PO Q6HRS PRN for ANXIETY, TAB 09/27/19 Clindamycin Hcl (CLINDAMYCIN HCL) 300 Mg Capsule, 300 MG PO QID for infection, CAP 09/27/19 Discontinued Scripts Fluconazole (DIFLUCAN) 100 Mg Tablet, 1 TAB PO DAILY for CANDIDIASIS for 7 Days, #7 TAB 0 Refills Prov:MEIR NERI MD 09/29/19 THERESA COFFEY MD Nov 06, 2019 12:28
[2019-11-06 15:00] VITALS: BP 122/62
[2019-11-06 19:00] VITALS: BP 100/42
[2019-11-06] MEDS ORDERED: risperiDONE 1 MG TABLET. PO SCH (21:00)
--- NOTE | 2019-11-06 21:14 | PDOC1 ---
History & Psych Evaluation Date of Admission: Date of Admission DATE: 11/06/19 TIME: 20:50 Source: Source: Caregiver, Chart review, Patient Identification: Identification She is a 59-year-old female Chief Complaint: Chief Complaint Refusing for medications, insulin, irritability, noncompliance with medications and instructions History of Present Illness: HPI: She is a 59-year-old female seen for initial psychiatric assessment. She has multiple medical comorbidities admitted with chest pain and epigastric pain. She has left ankle fracture, living in her car for 2 years. She was moved to [facility] emergency department following fracture and left AMA from there got admitted at [facility]. Apparently, she was supposed to discharge to a facility. However, she was declined admission today when came across that buddy ent was refusing for medications, and insulin as well. Upon interview, she appears very irritable, labile, and tearful. She appears to have generalized complains and that feelings about healthcare system. She demonstrates feeling of inadequacy, being neglected, and not taking care appropriately. Feeling of abandonment is apparent. States, she was told that if she got on insulin she would never be out of. She appears suspicious about medications telling that generally she does not like to take pills. Irritability, anxiety, depressed mood are prominent. She denies previous history of major psychiatric illness including psychosis, bipolar mood disorder, major depression, or anxiety disorder. She appears argumentative, and reluctant to accept reassurance. During interview, she was redirected multiple times. States, people are stealing money from her. She needs money to bring one of her best friend who lives in [place]. However, friend is poor and can't afford to travel. Presently, she denies suicidal or homicidal thoughts intent or plan. Denies auditory or visual hallucinations. Past Psychiatric History: Denies past psychiatric history of mental health illnesses, psychiatric hospital admissions or suicidality. Past Medical History: Please see medical chart for details. Family History: Denies family history of psychiatric illness or suicidality. Social History: Social History: She was living in her car for 2 years. Reportedly lived in [place] for 30 years. Her 2 previous husbands . She denies legal issues. She is on Social Security income. Current Medications: Current Medications Current Medications Medications (Trade) Dose Ordered Sig/Dorian Start Time Stop Time Status Last Admin Dose Admin Acetaminophen (Tylenol) 650 mg PRN Q6HRS PRN 10/30/19 23:45 Acetaminophen/ Hydrocodone Bitart (Lortab 5/325) 2 tab PRN Q4HRS PRN 10/31/19 02:00 11/06/19 19:10 2 TAB Aspirin (Children'S Aspirin) 81 mg DAILY 10/31/19 09:00 11/05/19 08:05 81 MG Atorvastatin Calcium (Lipitor) 20 mg HS 10/31/19 21:00 11/05/19 21:17 20 MG Bisacodyl (Dulcolax Tab) 5 mg PRN DAILY PRN 11/03/19 09:15 Dextrose (Dextrose 50%-Water Syringe) 12.5 gm PRN Q15MIN PRN 10/31/19 00:00 Diazepam (Valium) 2 mg PRN TID PRN 11/01/19 16:30 11/06/19 17:00 2 MG Divalproex Sodium (Depakote) 500 mg DAILY 10/31/19 09:00 11/04/19 09:37 500 MG Enoxaparin Sodium (Lovenox 40mg Syringe) 40 mg Q24H 10/31/19 00:00 10/31/19 02:09 40 MG Gabapentin (Neurontin) 300 mg HS 10/31/19 21:00 11/05/19 21:17 300 MG Insulin Human Lispro (HumaLOG) 10 units 1X 11/06/19 07:00 Isosorbide Mononitrate (Imdur) 30 mg DAILY 10/31/19 09:00 11/03/19 08:47 30 MG Lactulose (Lactulose) 20 gm BID 11/04/19 15:15 11/04/19 21:02 20 GM Loperamide HCl (Imodium) 2 mg PRN Q6HRS PRN 10/30/19 23:45 Magnesium Citrate (Citroma) 296 ml 1X ONCE 11/03/19 13:30 11/03/19 13:31 DC 11/03/19 13:37 296 ML Morphine Sulfate (Ms Contin) 15 mg BID 11/05/19 21:00 11/06/19 07:37 15 MG Multi-Ingredient Mouthwash/Gargle (Gi Cocktail) 20 ml PRN QID PRN 10/31/19 15:45 Ondansetron HCl (Zofran) 4 mg PRN Q6HRS PRN 10/30/19 23:45 11/04/19 09:54 4 MG Pantoprazole Sodium (Protonix) 40 mg DAILYAC 10/31/19 07:30 11/05/19 08:04 40 MG Polyethylene Glycol (miraLAX PACKET) 17 gm PRN DAILY PRN 11/03/19 09:15 Psyllium Hydrophilic Mucilloid (Metamucil Fiber Packet) 1 pkt DAILY 11/02/19 16:30 11/04/19 09:38 1 PKT Sucralfate (Carafate) 1 gm BIDAC 11/01/19 16:30 11/04/19 09:37 1 GM Allergies: Allergies: Coded Allergies: strawberry (Verified Allergy, Severe, Anaphylaxis, 11/01/19) ibuprofen (Verified Allergy, Intermediate, Hives, 11/01/19) Mental Status Examination: Mental Status Examination She is a female, appears older than his stated age, fairly groomed, fairly nourished. She is not very cooperative, irritable, avoiding eye contact. Speech is at times loud. Thought processes concrete. Denies auditory or visual hallucinations. Denies suicidal or homicidal thoughts. Mood is irritable and dysphoric. Affect is labile. Insight is fair. Impulse control is fair. Judgment is poor. Attention span and concentration are ROS: CONSTITUTIONAL: No fever or chills EYES: No recent changes SKIN: No rash or itching CARDIOVASCULAR: No chest pain, syncope, palpitations, or edema RESPIRATORY: No SOB or cough GASTROINTESTINAL: No nausea, vomiting or abdominal pain NEUROLOGICAL: No headaches or weakness ENDOCRINE: No cold or heat intolerance GENITOURINARY: No urgency or frequency of urination MUSCULOSKELETAL: No back pain or joint pain LYMPHATICS: No enlarged lymph nodes PSYCHIATRIC: No anxiety or depression Physical Exam: Refer to Physician's note. MANAGER FLEET: No focal deficit MSK: No EPS, TDK, or abnormal involuntary movements Vitals: Vitals Vital Signs Date Time Temp Pulse Resp B/P (MAP) Pulse Ox O2 Delivery O2 Flow Rate FiO2 11/06/19 19:10 Room Air 11/06/19 15:00 98.9 74 18 122/62 (82) 98 98.9 Labs: Labs Laboratory Tests Test 11/06/19 05:15 White Blood Count 5.3 x10^3/uL (4.0-11.0) Red Blood Count 4.58 x10^6/uL (3.50-5.40) Hemoglobin 13.2 g/dL (12.0-15.5) Hematocrit 39.9 % (36.0-47.0) Mean Corpuscular Volume 87 fL (79-100) Mean Corpuscular Hemoglobin 29 pg (25-35) Mean Corpuscular Hemoglobin Concent 33 g/dL (31-37) Red Cell Distribution Width 13.2 % (11.5-14.5) Platelet Count 215 x10^3/uL (140-400) Neutrophils (%) (Auto) 55 % (31-73) Lymphocytes (%) (Auto) 34 % (24-48) Monocytes (%) (Auto) 7 % (0-9) Eosinophils (%) (Auto) 5 % (0-3) Basophils (%) (Auto) 1 % (0-3) Neutrophils # (Auto) 2.9 x10^3/uL (1.8-7.7) Lymphocytes # (Auto) 1.8 x10^3/uL (1.0-4.8) Monocytes # (Auto) 0.3 x10^3/uL (0.0-1.1) Eosinophils # (Auto) 0.2 x10^3/uL (0.0-0.7) Basophils # (Auto) 0.0 x10^3/uL (0.0-0.2) Sodium Level 142 mmol/L (136-145) Potassium Level 5.2 mmol/L (3.5-5.1) Chloride Level 104 mmol/L (98-107) Carbon Dioxide Level 30 mmol/L (21-32) Anion Gap 8 (6-14) Blood Urea Nitrogen 9 mg/dL (7-20) Creatinine 1.3 mg/dL (0.6-1.0) Estimated GFR (Cockcroft-Gault) 41.9 BUN/Creatinine Ratio 7 (6-20) Glucose Level 512 mg/dL (70-99) Calcium Level 8.5 mg/dL (8.5-10.1) Total Bilirubin 0.4 mg/dL (0.2-1.0) Aspartate Amino Transf (AST/SGOT) 28 U/L (15-37) Alanine Aminotransferase (ALT/SGPT) 71 U/L (14-59) Alkaline Phosphatase 434 U/L (46-116) Total Protein 5.6 g/dL (6.4-8.2) Albumin 2.5 g/dL (3.4-5.0) Albumin/Globulin Ratio 0.8 (1.0-1.7) Laboratory Tests Test 11/06/19 05:15 White Blood Count 5.3 x10^3/uL (4.0-11.0) Red Blood Count 4.58 x10^6/uL (3.50-5.40) Hemoglobin 13.2 g/dL (12.0-15.5) Hematocrit 39.9 % (36.0-47.0) Mean Corpuscular Volume 87 fL (79-100) Mean Corpuscular Hemoglobin 29 pg (25-35) Mean Corpuscular Hemoglobin Concent 33 g/dL (31-37) Red Cell Distribution Width 13.2 % (11.5-14.5) Platelet Count 215 x10^3/uL (140-400) Neutrophils (%) (Auto) 55 % (31-73) Lymphocytes (%) (Auto) 34 % (24-48) Monocytes (%) (Auto) 7 % (0-9) Eosinophils (%) (Auto) 5 % (0-3) Basophils (%) (Auto) 1 % (0-3) Neutrophils # (Auto) 2.9 x10^3/uL (1.8-7.7) Lymphocytes # (Auto) 1.8 x10^3/uL (1.0-4.8) Monocytes # (Auto) 0.3 x10^3/uL (0.0-1.1) Eosinophils # (Auto) 0.2 x10^3/uL (0.0-0.7) Basophils # (Auto) 0.0 x10^3/uL (0.0-0.2) Sodium Level 142 mmol/L (136-145) Potassium Level 5.2 mmol/L (3.5-5.1) Chloride Level 104 mmol/L (98-107) Carbon Dioxide Level 30 mmol/L (21-32) Anion Gap 8 (6-14) Blood Urea Nitrogen 9 mg/dL (7-20) Creatinine 1.3 mg/dL (0.6-1.0) Estimated GFR (Cockcroft-Gault) 41.9 BUN/Creatinine Ratio 7 (6-20) Glucose Level 512 mg/dL (70-99) Calcium Level 8.5 mg/dL (8.5-10.1) Total Bilirubin 0.4 mg/dL (0.2-1.0) Aspartate Amino Transf (AST/SGOT) 28 U/L (15-37) Alanine Aminotransferase (ALT/SGPT) 71 U/L (14-59) Alkaline Phosphatase 434 U/L (46-116) Total Protein 5.6 g/dL (6.4-8.2) Albumin 2.5 g/dL (3.4-5.0) Albumin/Globulin Ratio 0.8 (1.0-1.7) Diagnosis: Diagnosis: 1 Mood disorder, rule out major depressive disorder. 2 unspecified anxiety. 3 borderline personality traits. Assessment: female struggling with mood instability, likely part of major depressive episode, anxiety which precipitated by her complicated medical history, psychosocial circumstances, and limited social support. He needs mood stability to get some insight about her medical condition and treatment plan. She is in agreement to take Risperdal which would help in mood stability and insomnia as well. Additionally, recommending to increase mood stabilizer Depakote. Start risperidone 1 mg nightly for mood stability. Increase Depakote to 500 mg twice a day for mood stability and irritability. Psychoeducation provided. Supportive psychotherapy provided. Risks, benefits, alternatives of the treatment are discussed. She is in agreement with plan and voiced understanding. Except for insulin, patient is in agreement to take enoxaparin, and has been IV line access. Thank you for involving in patient's care. Please contact Dr. Rainey at [phone] with any concern. KEISHA RAINEY MD Nov 06, 2019 21:13
[2019-11-06] MEDS: ATORVASTATIN CALCIUM 20 MG TABLET PO SCH (21:15)
[2019-11-06] MEDS: GABAPENTIN 300 MG CAPSULE. PO SCH (21:15)
[2019-11-06 23:00] VITALS: BP 147/84
[2019-11-07] MEDS: ENOXAPARIN 40 MG/0.4 ML SYRINGE. SQ SCH
[2019-11-07] MEDS: HYDROcodone/APAP 5/325MG 1 TAB TABLET PO PRN ×3 (00:26→14:16)
[2019-11-07 03:00] VITALS: BP 130/47
[2019-11-07] MEDS: diazePAM 2 MG TABLET PO PRN (03:21)
[2019-11-07] MEDS: SUCRALFATE 1 GM TABLET. PO SCH (06:49)
[2019-11-07 07:00] VITALS: BP 151/71
[2019-11-07] MEDS: INSULIN LISPRO 300 UNITS/3 ML VIAL. SQ SCH ×2 (07:30→10:40)
[2019-11-07] MEDS: PSYLLIUM HUSK (SUGAR FREE) 1 PKT PACKET PO SCH (08:06)
[2019-11-07] MEDS: POLYETHYLENE GLYCOL 3350 17 GM PACKET. PO SCH (08:06)
[2019-11-07] MEDS: MORPHINE ER 15 MG TABLET.ER PO SCH (08:06)
[2019-11-07 08:07] VITALS: BP 151/71
[2019-11-07] MEDS: ASPIRIN CHEWABLE 81 MG TABLET. PO SCH (08:07)
[2019-11-07] MEDS: ISOSORBIDE MONONITRATE ER 30 MG TAB.ER.24H PO SCH (08:07)
[2019-11-07] MEDS: PANTOPRAZOLE 40 MG TABLET.DR. PO SCH (08:07)
[2019-11-07] MEDS: LACTULOSE 20 GM/30 ML SOLUTION. PO SCH (08:12)
[2019-11-07] MEDS: DIVALPROEX DELAYED RELEASE 500 MG TABLET.DR. PO SCH (08:12)
--- NOTE | 2019-11-07 09:40 | PDOC ---
Subjective: Subjective: Didn't sleep well because meds were adjusted and nobody told her, nobody tells her anything. Not eating well because doesn't like what is served - I asked what sounds good and she said "nothing here." Wishes she could have more bowel movements but doesn't want any medication. Objective: Vital Signs: Vital Signs Date Time Temp Pulse Resp B/P (MAP) Pulse Ox O2 Delivery O2 Flow Rate FiO2 11/07/19 08:07 72 151/71 11/07/19 08:06 18 Room Air 11/07/19 07:00 98.1 95 98.1 PE: GEN: NAD, was asleep LUNGS: room air EXTREMITY: LLE w/ brace NEURO/PSYCH: A & O 3 A/P: Chronic pain, psyhc issues, non-compliance Chronic dysphagia, GERD Elevated LFTs, abnormal MRCP (?IPMN), elevated CA19-9 Constipation DM -- Discharge plans unclear. Plans for outpt EUS - our office will start the process - d/w her. Will add more options for constipation if she'll take them. Hemodynamically unstable?: No Is patient in severe pain?: No Is NPO status required?: No ZACHARIAH VENCES Nov 07, 2019 09:40
[2019-11-07] MEDS ORDERED: BISACODYL 5 MG TABLET.DR. PO PRN (09:45)
--- NOTE | 2019-11-07 10:53 | PDOC ---
PROGRESS NOTES Chief Complaint Chief Complaint A/P: stable angina on admit, Coronary artery disease, status post IN with stent deployment previously. Cont meds Type 2 diabetes - will place on sliding scale, A1c 10.2. She is refusing a lot of insulin therapy, heavily counseled today Hypertension - cont meds Hyperlipidemia - cont meds Gastroesophageal reflux disease - cont meds. Likely with need for esophageal dilation Generalized weakness - will have PT to evaluated Right heel wound - seems to be a bedsore. Difficulty walking - right heel ulcer and left ankle in brace Left bimalleolar fracture - patient notes she was seen recently by orthopedic surgeon. She is still nonweightbearing and mostly bed bound, wheelchair bound. Morbid obesity - counseled on diet, exercise. Insight seems very poor Elevated alkaline phosphatase - will d/w GI, was just evaluated 5 weeks ago. MRCP grossly abnormal Elevated CA19-9 - recommend EUS per GI, can be scheduled outpatient Behavioral disorder - her self care is poor, seems depressed, thoughts seem disorganized. A psychotic disorder with concomitant borderline personality seem to be present. Is on depakote likely for treatment of this. Chronic dysphagia, GERD - Schatkzi's ring dilated, h/o esophageal dysmotility on past imaging - on PPI - not interested in changing her diet History of Present Illness History of Present Illness Ms Del Rosario is a 59yo F w/ PMHx CAD s/p stent, HTN, HLD, DM2, GERD, left ankle fr acture who presented from nursing facility secondary to chest/ epigastric pain. Patient reports pain has been present for the last 2 days and states she has not been allowed to eat for 3 days. Pain is located in her central epigastric region. Pain seems to radiate up the the left chest. No dizziness, diaphoresis, shortness of breath, or nausea/vomiting. Has been requesting GI cocktail, which she reports improves pain. She reported was living in her car for the past 2 years and slipped and fell getting out of her car, fracturing her left ankle, states she went under the car, was in [facility] for the past 18 weeks, apparently. Chest x-ray with mild pulmonary edema. Labs are unremarkable for acute changes. Liver enzymes are chronically elevated with Alkaline phosphatase much higher. Ejection fraction from cardiac workup last month was 60%. . Influenza are negative. Strep is negative. After d/w ED and [facility], apparently she signed out AMA from [facility] and had called 911 and EMS transported her here as she was unable to walk out of the facility. On further ROS her story is inconsistent in many parts and does change. Difficult to follow. She displays some splitting with her remarks about previous physicians. She adamantly denies any mental health diagnoses. 11/05 has been refusing things for days, refused insulin this AM, blood sugar > 500, I went in her room, and there are 2 sprites, and 3 cakes, one half eaten, and an open bag of Ruffels, I threw the cakes and the chips in the trash and pleaded with her to take some insulin, and discussed coma risk. will consult psych 11/06, discussed how Im not doing anything, I said yes, you need to try to take care of yourself. she complains of not getting thepain meds she is suppo sed taya on, but wont tell me who writes for her pain meds, refusing most things that might help. generally a terrible experience for staff. ON the commode 8 times this AM, no stool, will increase miralax to TID today, then BID Vitals Vitals Vital Signs Date Time Temp Pulse Resp B/P (MAP) Pulse Ox O2 Delivery O2 Flow Rate FiO2 11/07/19 08:07 72 151/71 11/07/19 08:06 18 Room Air 11/07/19 07:00 98.1 95 98.1 Physical Exam General: Alert, Cooperative, No acute distress Abdomen: Normal bowel sounds, Soft, No tenderness, No hepatosplenomegaly, No masses Extremities: No clubbing, No cyanosis, No edema, Normal pulses Skin: Other (Right heel abrasion with "" wound cover) Assessment and Plan Assessmemt and Plan Problems Medical Problems: (1) Failure to thrive Status: Acute Comment Review of Relevant I have reviewed the following items octavio (where applicable) has been applied. Labs Laboratory Tests Test 11/06/19 05:15 White Blood Count 5.3 x10^3/uL (4.0-11.0) Red Blood Count 4.58 x10^6/uL (3.50-5.40) Hemoglobin 13.2 g/dL (12.0-15.5) Hematocrit 39.9 % (36.0-47.0) Mean Corpuscular Volume 87 fL (79-100) Mean Corpuscular Hemoglobin 29 pg (25-35) Mean Corpuscular Hemoglobin Concent 33 g/dL (31-37) Red Cell Distribution Width 13.2 % (11.5-14.5) Platelet Count 215 x10^3/uL (140-400) Neutrophils (%) (Auto) 55 % (31-73) Lymphocytes (%) (Auto) 34 % (24-48) Monocytes (%) (Auto) 7 % (0-9) Eosinophils (%) (Auto) 5 % (0-3) Basophils (%) (Auto) 1 % (0-3) Neutrophils # (Auto) 2.9 x10^3/uL (1.8-7.7) Lymphocytes # (Auto) 1.8 x10^3/uL (1.0-4.8) Monocytes # (Auto) 0.3 x10^3/uL (0.0-1.1) Eosinophils # (Auto) 0.2 x10^3/uL (0.0-0.7) Basophils # (Auto) 0.0 x10^3/uL (0.0-0.2) Sodium Level 142 mmol/L (136-145) Potassium Level 5.2 mmol/L (3.5-5.1) Chloride Level 104 mmol/L (98-107) Carbon Dioxide Level 30 mmol/L (21-32) Anion Gap 8 (6-14) Blood Urea Nitrogen 9 mg/dL (7-20) Creatinine 1.3 mg/dL (0.6-1.0) Estimated GFR (Cockcroft-Gault) 41.9 BUN/Creatinine Ratio 7 (6-20) Glucose Level 512 mg/dL (70-99) Calcium Level 8.5 mg/dL (8.5-10.1) Total Bilirubin 0.4 mg/dL (0.2-1.0) Aspartate Amino Transf (AST/SGOT) 28 U/L (15-37) Alanine Aminotransferase (ALT/SGPT) 71 U/L (14-59) Alkaline Phosphatase 434 U/L (46-116) Total Protein 5.6 g/dL (6.4-8.2) Albumin 2.5 g/dL (3.4-5.0) Albumin/Globulin Ratio 0.8 (1.0-1.7) Microbiology 10/30/19 Urine Culture - Final, Complete 10/30/19 Urine Culture Result 1 (LAURE) - Final, Complete 10/30/19 Nose/Throat Culture - Final, Complete 10/30/19 - Final, Complete Medications Current Medications Ondansetron HCl (Zofran) 4 mg PRN Q8HRS PRN IV NAUSEA/VOMITING; Start 10/30/19 at 21:00; Stop 10/30/19 at 23:49; Status DC Ondansetron HCl (Zofran) 4 mg PRN Q6HRS PRN IV NAUSEA/VOMITING 1ST CHOICE Last administered on 11/04/19at 09:54; Start 10/30/19 at 23:45 Aspirin (Children'S Aspirin) 81 mg DAILY PO Last administered on 11/07/19at 08:07; Start 10/31/19 at 09:00 Atorvastatin Calcium (Lipitor) 20 mg HS PO Last administered on 11/06/19at 21:15; Start 10/31/19 at 21:00 Divalproex Sodium (Depakote) 500 mg DAILY PO Last administered on 11/04/19at 09:37; Start 10/31/19 at 09:00; Stop 11/06/19 at 20:51; Status DC Gabapentin (Neurontin) 300 mg HS PO Last administered on 11/06/19at 21:15; Start 10/31/19 at 21:00 Isosorbide Mononitrate (Imdur) 30 mg DAILY PO Last administered on 11/07/19at 08:07; Start 10/31/19 at 09:00 Loperamide HCl (Imodium) 2 mg PRN Q6HRS PRN PO DIARRHEA; Start 10/30/19 at 23:45; Stop 11/07/19 at 09:41; Status DC Sucralfate (Carafate) 1 gm QIDACHS PO Last administered on 10/31/19at 20:29; Start 10/31/19 at 07:30; Stop 11/01/19 at 13:30; Status DC Pantoprazole Sodium (Protonix) 40 mg DAILYAC PO Last administered on 11/07/19at 08:07; Start 10/31/19 at 07:30 Acetaminophen (Tylenol) 650 mg PRN Q6HRS PRN PO MILD pain/temp; Start 10/30/19 at 23:45 Enoxaparin Sodium (Lovenox 40mg Syringe) 40 mg Q24H SQ Last administered on 10/31/19at 02:09; Start 10/31/19 at 00:00 Insulin Human Lispro (HumaLOG) 0-5 UNITS TIDACHC SQ ; Start 10/31/19 at 07:30 Dextrose (Dextrose 50%-Water Syringe) 12.5 gm PRN Q15MIN PRN IV SEE COMMENTS; Start 10/31/19 at 00:00 Acetaminophen/ Hydrocodone Bitart (Lortab 5/325) 2 tab PRN Q4HRS PRN PO SEVERE PAIN 7-10 Last administered on 11/07/19at 05:05; Start 10/31/19 at 02:00 Morphine Sulfate (Ms Contin) 30 mg BID PO Last administered on 11/05/19at 08:04; Start 10/31/19 at 02:00; Stop 11/05/19 at 09:17; Status DC Multi-Ingredient Mouthwash/Gargle (Gi Cocktail) 20 ml PRN QID PRN PO chest/epi gastric pain; Start 10/31/19 at 15:45 Diazepam (Valium) 5 mg 1X ONCE PO Last administered on 10/31/19at 20:30; Start 10/31/19 at 18:30; Stop 10/31/19 at 18:31; Status DC Sucralfate (Carafate) 1 gm BIDAC PO Last administered on 11/07/19at 06:49; Start 11/01/19 at 16:30; Stop 11/07/19 at 09:41; Status DC Diazepam (Valium) 2 mg PRN TID PRN PO ANXIETY Last administered on 11/07/19 03:21; Start 11/01/19 at 16:30 Polyethylene Glycol (miraLAX PACKET) 17 gm DAILY PO Last administered on 11/07/19at 08:06; Start 11/02/19 at 16:30 Psyllium Hydrophilic Mucilloid (Metamucil Fiber Packet) 1 pkt DAILY PO Last administered on 11/07/19at 08:06; Start 11/02/19 at 16:30 Polyethylene Glycol (miraLAX PACKET) 17 gm DAILY PO ; Start 11/03/19 at 09:30; Stop 11/03/19 at 11:47; Status DC Polyethylene Glycol (miraLAX PACKET) 17 gm PRN DAILY PRN PO CONSTIPATION 1ST CHOICE; Start 11/03/19 at 09:15 Bisacodyl (Dulcolax Tab) 5 mg PRN DAILY PRN PO constipation 2nd choice; Start 11/03/19 at 09:15 Magnesium Citrate (Citroma) 296 ml 1X ONCE PO Last administered on 11/03/19at 13:37; Start 11/03/19 at 13:30; Stop 11/03/19 at 13:31; Status DC Lactulose (Lactulose) 20 gm PRN DAILY PRN PO CONSTIPATION; Start 11/03/19 at 13:30; Stop 11/04/19 at 15:11; Status DC Lactulose (Lactulose) 20 gm BID PO Last administered on 11/04/19at 21:02; Start 11/04/19 at 15:15 Morphine Sulfate (Ms Contin) 15 mg BID PO Last administered on 11/07/19at 08:06; Start 11/05/19 at 21:00 Insulin Human Lispro (HumaLOG) 10 units 1X SQ ; Start 11/06/19 at 07:00 Divalproex Sodium (Depakote) 500 mg BID PO ; Start 11/06/19 at 21:00 Risperidone (RisperDAL) 1 mg HS PO Last administered on 11/06/19at 21:15; Start 11/06/19 at 21:00 Bisacodyl (Dulcolax Tab) 10 mg PRN DAILY PRN PO CONSTIPATION; Start 11/07/19 at 09:45 Lubiprostone (Amitiza) 24 mcg BIDWMEALS PO ; Start 11/07/19 at 17:00 Active Scripts Active Lantus Solostar (Insulin Glargine,Hum.rec.anlog) 100 Unit/1 Ml Insuln.pen 10 Unit SQ QHS 30 Days Humalog (Insulin Lispro) 100 Unit/1 Ml Insuln.pen 0 Units SQ TIDACHC 30 Days Diazepam 2 Mg Tablet 2 Mg PO PRN TID PRN 6 Days Hydrocodone-Acetamin 5-325 mg (Hydrocodone/Acetaminophen) 1 Each Tablet 1 Tab PO PRN Q6HRS PRN 6 Days Carafate (Sucralfate) 1 Gm Tablet 1 Tab PO QID 30 Days Protonix (Pantoprazole Sodium) 20 Mg Tablet.dr 2 Tab PO DAILY 30 Days Reported Multivitamins (Multivitamin) 1 Each Tablet 1 Tab PO DAILY Melatonin 3 Mg Tablet 3 Tab PO QHS Isosorbide Mononitrate Er (Isosorbide Mononitrate) 30 Mg Tab.er.24h 1 Tab PO DAILY Imodium A-D (Loperamide HCl) 2 Mg Capsule 2 Mg PO Q6HRS PRN Gabapentin (Gabapentin) 300 Mg Capsule 300 Mg PO HS Flonase Allergy Relief (Fluticasone Propionate) 9.9 Ml Wilcox.susp 2 Sprays NS DAILY Depakote (Divalproex Sodium) 500 Mg Tablet.dr 500 Mg PO DAILY Calcium 600 + Vit D Tablet (Calcium Carbonate/Vitamin D3) 1 Each Tablet 1 Each PO BID Atorvastatin Calcium 20 Mg Tablet 20 Mg PO HS Aspirin 81 Mg Tab.chew 1 Tab PO DAILY Vitals/I & O Vital Sign - Last 24 Hours 11/06/19 11/06/19 11/06/19 11/06/19 11:00 11:37 13:26 14:26 Temp 98.2 98.2 Pulse 56 Resp 18 B/P (MAP) 102/72 (82) Pulse Ox 94 O2 Delivery Room Air Room Air Room Air Room Air 11/06/19 11/06/19 11/06/19 11/06/19 15:00 19:00 19:10 20:00 Temp 98.9 98.5 98.9 98.5 Pulse 74 62 Resp 18 18 B/P (MAP) 122/62 (82) 100/42 (61) Pulse Ox 98 95 O2 Delivery Room Air Room Air Room Air Room Air 11/06/19 11/06/19 11/06/19 11/07/19 20:10 22:41 23:00 03:00 Temp 98.8 98.7 98.8 98.7 Pulse 91 68 Resp 18 18 B/P (MAP) 147/84 (105) 130/47 (74) Pulse Ox 96 96 O2 Delivery Room Air Room Air Room Air Room Air 11/07/19 11/07/19 11/07/19 11/07/19 07:00 08:00 08:06 08:07 Temp 98.1 98.1 Pulse 72 72 Resp 18 18 B/P (MAP) 151/71 (97) 151/71 Pulse Ox 95 O2 Delivery Room Air Room Air Room Air Intake and Output 11/06/19 11/06/19 11/07/19 15:00 23:00 07:00 Output Total 400 ml Balance -400 ml Hemodynamically unstable?: No Is patient in severe pain?: No Is NPO status required?: No THERESA COFFEY MD Nov 07, 2019 10:53
--- NOTE | 2019-11-07 10:57 | NUR ---
SW following. Discussed with RN, referral was sent to [facility] and [facility] this morning. [facility] declined, [facility] has not responded to multiple voicemails. VAZQUEZ faxed referral to [facility], as almost all facilities in [place] have declined to take pt. Pt needing SNU placement [facility], is ready to discharge. Pt had psych eval with Dr. Rainey, agreed to take psych meds to help stabilize mood, however per RN, pt has been declining psych meds. SW will continue to follow. Addendum: 11/07/19 at 1411 by ZEENAT SHUKLA Pt requested to see SW around 1130, SW met with pt at that time. Pt stated SW is trying to send her further than she wants to. VAZQUEZ advised referrals have been sent to [place] as that is the area pt requested - pt agreed. VAZQUEZ advised pt likely will not be going to [place] due to facilities declining to take her. Pt questioned why they were saying no, VAZQUEZ advised because of pt leaving [facility], refusing to take medications and refusing to participate in therapy. Pt tried to give SW reasons why she had declined therapy, VAZQUEZ was lemuel with pt stating at the hospital pt's don't always get to choose the perfect time they want to work with therapy, there are 80 other patients here needing therapy so therapy tries to see pt's as close as possible to the time they prefer, but it does not always work out that way. Pt reported she likes therapy at 1330, SW advised therapy had been reminded that pt prefers therapy in the afternoon. SW reminded pt to work with therapy when they come around to ensure a facility can accept pt and she can get the rehab she needs to get back on her feet. [facility] accepted pt, they are checking with the area on aging about whether a CARE assessment has been done. VAZQUEZ will continue to follow. [place] notified. Addendum: 11/07/19 at 1524 by ZEENAT SHUKLA [facility] reported pt already has a care assessment completed and have set transportation for 1600. RN notified. Pt choice and rights letter signed and placed on chart. No further SW needs.
--- NOTE | 2019-11-07 15:45 | NUR ---
Attempted to call Report to [facility] @[phone] twice with no answer. Called back and left name and phone number for the nurse to call back and get report.
--- NOTE | 2019-11-07 16:36 | NUR ---
Patient was picked up and transported to [place] @1600. Attempted to call report again, got transferred and kept ringing and ringing. Again they have the # to here and my name.
[2019-11-07] MEDS ORDERED: LUBIPROSTONE 24 MCG CAPSULE PO SCH (17:00)
[2019-11-07] MEDS ORDERED: POLYETHYLENE GLYCOL 3350 17 GM PACKET. PO SCH (21:00)
== END 2019-11-07 16:42 | DRG 392 ==
LOC: ER 17:06 → 4 NORTH 20:50
PROVIDERS: ADMIT Internal Medicine; ATTEND Internal Medicine
PROC: 0DJ08ZZ Inspection of Upper Intestinal Tract, Via Natural or Artificial Opening Endoscopic (ICD-10-PCS; principal; 2019-11-01 13:00)
PROC: 0D758ZZ Dilation of Esophagus, Via Natural or Artificial Opening Endoscopic (ICD-10-PCS; 2019-11-01 13:00)
DX: K21.9 Gastro-esophageal reflux disease without esophagitis (principal); L97.419 Non-pressure chronic ulcer of right heel and midfoot with unspecified severity; K29.60 Other gastritis without bleeding; I25.10 Atherosclerotic heart disease of native coronary artery without angina pectoris; K22.2 Esophageal obstruction; E78.5 Hyperlipidemia, unspecified; F41.9 Anxiety disorder, unspecified; F31.9 Bipolar disorder, unspecified; F20.9 Schizophrenia, unspecified; G47.00 Insomnia, unspecified; S82.842A Displaced bimalleolar fracture of left lower leg, initial encounter for closed fracture; F60.3 Borderline personality disorder; N18.9 Chronic kidney disease, unspecified; E11.22 Type 2 diabetes mellitus with diabetic chronic kidney disease; I12.9 Hypertensive chronic kidney disease with stage 1 through stage 4 chronic kidney disease, or unspecified chronic kidney disease; K76.0 Fatty (change of) liver, not elsewhere classified; E66.01 Morbid (severe) obesity due to excess calories; E11.621 Type 2 diabetes mellitus with foot ulcer; L89.619 Pressure ulcer of right heel, unspecified stage; K86.89 Other specified diseases of pancreas; G89.29 Other chronic pain; M85.80 Other specified disorders of bone density and structure, unspecified site; K59.00 Constipation, unspecified; N20.0 Calculus of kidney; Z96.652 Presence of left artificial knee joint; Y93.89 Activity, other specified; Y92.89 Other specified places as the place of occurrence of the external cause; Y99.8 Other external cause status; Z68.35 Body mass index [BMI] 35.0-35.9, adult; Z87.11 Personal history of peptic ulcer disease; I25.2 Old myocardial infarction; Z95.5 Presence of coronary angioplasty implant and graft; Z90.49 Acquired absence of other specified parts of digestive tract; Z74.01 Bed confinement status; Z99.3 Dependence on wheelchair; Z59.0 Homelessness; Z91.19 Patient's noncompliance with other medical treatment and regimen; Z91.018 Allergy to other foods; Z88.8 Allergy status to other drugs, medicaments and biological substances; Z83.3 Family history of diabetes mellitus; Z82.49 Family history of ischemic heart disease and other diseases of the circulatory system
CPT/HCPCS: 36415; 43235; 43450; 71046; 73600; 74181; 80048; 80053; 80076; 81001; 83036; 83520; 84443; 84484; 85025; 86301; 87070; 87086; 87804; 87880; 93005; 99285; J1650; J1815; J2405; 83516; 97110; 97530; 97535; G0378